=== PATIENT | female | born 1945 | race Caucasian/White ===

== ENCOUNTER 2016-06-15 10:34 | Inpatient (IN) | payer MEDICARE ==
[2016-06-15] MEDS ORDERED: FAMOTIDINE 10 MG/ML VIAL IV ONE ×2 (10:40→10:48)
[2016-06-15] MEDS ORDERED: HYDROmorphone HCL 1 MG/ML DISP.SYRIN IV ONE (10:40)
[2016-06-15] MEDS ORDERED: ONDANSETRON HCL/PF 2 MG/ML VIAL IV ONE (10:40)
[2016-06-15] MEDS ORDERED: ONDANSETRON HCL/PF 2 MG/ML VIAL ONE (10:48)
[2016-06-15] MEDS ORDERED: HYDROmorphone HCL 1 MG/ML DISP.SYRIN ONE (10:48)
[2016-06-15] MEDS: NORMAL SALINE 1,000 ML IV PRN ×3 (10:50→23:27)
[2016-06-15] MEDS ORDERED: NORMAL SALINE 500 ML IV PRN (10:55)
--- NOTE | 2016-06-15 10:55 | ERNOTE ---
Medical Problem HPI - Narrative Date of Service: 06/15/16 - General Chief Complaint: Fall Time Seen by Provider: 06/15/16 10:38 Source: patient, family, EMS notes reviewed Exam Limitations: no limitations - Immun/Allergies/Home Medications Immunizations: IMMUNIZATION HX Immunizations Up to Date Yes History of Influenza Vaccine Yes Hx Pneumococcal Vaccination More Information Required Allergies/Adverse Reactions: Allergies cat dander Allergy (Verified 06/15/16 11:00) fluticasone propionate [From Advair Diskus] Allergy (Verified 06/15/16 11:00) levofloxacin [From Levaquin] Allergy (Verified 06/15/16 11:00) meperidine HCl [From Demerol] Allergy (Verified 06/15/16 11:00) metoclopramide HCl [From Reglan] Allergy (Verified 06/15/16 11:00) NSAIDS (Non-Steroidal Anti-Inflamma Allergy (Verified 06/15/16 11:00) procaine HCl [From Novocain] Allergy (Verified 06/15/16 11:00) salmeterol xinafoate [From Advair Diskus] Allergy (Verified 06/15/16 11:00) tramadol Allergy (Verified 06/15/16 11:00) Home Medications: HOME MEDICATIONS Acetaminophen [Tylenol] 500 mg PO Q4H PRN 03/19/16 [Last Taken Unknown] Albuterol Sulfate [Ventolin HFA] 2 puff IH Q4H PRN 03/19/16 [Last Taken Unknown] Albuterol Sulfate/Ipratropium [Duoneb 2.5-0.5MG/3ML Soln] 3 ml IH QID 03/19/16 [ Last Taken Unknown] Ammonium Lactate [Amlactin] 1 appl TP BID 03/19/16 [Last Taken Unknown] Aspirin [Aspirin EC] 81 mg PO DAILY 03/19/16 [Last Taken Unknown] Atorvastatin Calcium 40 mg PO DAILY 03/19/16 [Last Taken Unknown] Carbinoxamine Maleate [Arbinoxa] 4 mg PO TID 03/19/16 [Last Taken Unknown] Cholestyramine (with Sugar) [Questran Packet] 4 gm PO QID 03/19/16 [Last Taken Unknown] Clopidogrel Bisulfate [Plavix] 75 mg PO DAILY 03/19/16 [Last Taken Unknown] Famotidine 40 mg PO BID 03/19/16 [Last Taken Unknown] Furosemide [Lasix] 40 mg PO BID 03/19/16 [Last Taken Unknown] Hydrophilic Ointment [Aquaphilic Ointment] 1 appl TP BID 03/19/16 [Last Taken Unknown] Insul NPH Hu Rec/Ins Rg Hu Rec [Novolin 70/30 100U/ml] 55 units SQ TID 03/19/16 [Last Taken Unknown] Insulin Regular, Human [Novolin R] 25 unit SQ DAILY 03/19/16 [Last Taken Unknown ] Insulin Regular, Human [Novolin R] 55 unit SQ QAM 03/19/16 [Last Taken Unknown] Iron Aspgly&Ps/C/B12/FA/Ca/Suc [Ferrex 150 Forte Plus Capsule] 1 each PO TID [Last Taken Unknown] Levothyroxine Sodium [Synthroid] 25 mcg PO DAILY 03/19/16 [Last Taken Unknown] Losartan Potassium [Cozaar] 100 mg PO DAILY 03/19/16 [Last Taken Unknown] Metoclopramide HCl [Reglan] 5 mg PO ACHS 03/19/16 [Last Taken Unknown] Metoprolol Tartrate 100 mg PO BID 03/19/16 [Last Taken Unknown] Multivitamin [One Daily Essential] 1 each PO DAILY 03/19/16 [Last Taken Unknown] Potassium Chloride 20 meq PO QID 03/19/16 [Last Taken Unknown] Prazosin HCl [Minipress] 5 mg PO DAILY 03/19/16 [Last Taken Unknown] Sucralfate [Carafate] 1 gm PO QID 03/19/16 [Last Taken Unknown] Trolamine Salicylate [Aspercreme] 1 appl TP QID PRN 03/19/16 [Last Taken Unknown ] Cephalexin [Keflex] 500 mg PO QID #40 capsule 03/20/16 [Last Taken Unknown] Acarbose [Precose] 25 mg PO TID 06/15/16 [Last Taken Unknown] Fluconazole [Diflucan] 400 mg PO DAILY 06/15/16 [Last Taken Unknown] Iron Aspgly&Ps Cmplx/C/Sucac [Ferrex 150 Plus Capsule] 1 each PO DAILY 06/15/16 [Last Taken Unknown] Januvia 06/15/16 [Last Taken Unknown] Topiramate [Topamax] 25 mg PO BID 06/15/16 [Last Taken Unknown] - Pain Score Pain Score #1 Pain Score: 7 - History of Present History Narrative: Patient comes after feeling weak and having some urinary problems. Patient has been with dysuria and has Hx of UTI. Patient was found with low blood pressure by EMS and a low sugar was reported. Patient on her way out of the home felt and landed on her L hip area. Patient with pain on the L hip area and is not able to walk. Patient reported pain on movement. Timing: constant Modifying Factors - (Improves): Present: immobilization Modifying Factors - (Worsens): Present: movement Review of Systems - Review of Systems Constitutional: Present: chills, weakness, malaise, decreased activity level EYE: Present: no symptoms reported ENT: Present: no symptoms reported Respiratory: Present: cough. Absent: shortness of breath, wheezing Cardiology: Absent: no symptoms reported, chest pain, palpitations, syncope, edema Gastrointestinal/Abdominal: Present: abdominal pain - Generalized. Patient stated that her dogs has been sleeping on top of her abdomen. Genitourinary: Present: frequency, dysuria. Absent: hematuria, discharge Skin: Absent: rash Neurological: Present: weakness - Generalized Endocrine: Present: increased urine Hematologic/Lymphatic: Absent: easy bruising, easy bleeding Psych: Absent: anxiety, depressed All Other Systems: All systems neg except as marked - Patient's Past Medical History Patient History - Medical: Anemia, Anesthesia Reaction, Anxiety, Arthritis, Cataracts, Diabetes Type 2 Insulin Dependent, Fibromyalgia, GERD, Headache, Hypothyroidism, Obesity, Renal Disease, UTI'S Patient History - Cardiac/Respiratory: Asthma, CHF, COPD, Hyperlipidemia Patient History - Cancer: No Hx of Cancer Patient History - Surgical Procedures: Appendectomy, Cholecystectomy, Coronary Bypass Surgery, Hysterectomy - Family History Mother Family History - Medical: , Diabetes Type 2 Insulin Dependent Family History - Cardiac/Respiratory: Arrhythmias Father Family History - Medical: , Diabetes Type 2 Insulin Dependent Family History - Cardiac/Respiratory: No pertinent hx Grandmother-Paternal Family History - Medical: Grandfather-Paternal Family History - Medical: , No pertinent hx Family History - Cardiac/Respiratory: No pertinent hx Grandfather-Maternal Family History - Medical: , No pertinent hx Family History - Cardiac/Respiratory: CHF, Myocardial Infarction Grandmother-Maternal Family History - Medical: , No pertinent hx Family History - Cardiac/Respiratory: Myocardial Infarction Brother Family History - Medical: , No pertinent hx Family History - Cardiac/Respiratory: No pertinent hx Sister Family History - Medical: Family History - Cardiac/Respiratory: No pertinent hx - Social History Living Situations: alone Smoking Status: Former smoker Alcohol Use: rarely Drug Use: none Physical Exam - Physical Exam General Appearance: Present: alert, no apparent distress, obese Eye Exam: Normal inspection: bilateral, PERRL: bilateral, EOMI: bilateral Ears, Nose, Throat: Present: normal ENT inspection, hearing grossly normal, normal pharynx, dry mucous membranes Neck: Present: normal inspection, nontender. Absent: carotid bruit Respiratory: Present: no respiratory distress, normal breath sounds, no accessory muscle use, chest nontender, lungs clear, expiration (prolonged) - mild. Absent: rales Cardiovascular/Chest: Present: regular rate, rhythm, no murmur, normal peripheral pulses Gastrointestinal/Abdominal: Present: normal bowel sounds, nontender, nondistended, soft, no organomegaly Back Exam: Present: normal inspection, no vertebral tenderness, decreased range of motion - due to lower back pain, muscle spasm - patient with spasm on the lower back area. Absent: CVA tenderness (R), CVA tenderness (L) Extremity Exam: Present: decreased range of motion - Patient has decrease ROM on the L hip area., pelvis stable, other - Patient has shortening of the L leg and external rotation of the L hip on examination. There is good pulse and sensaiton. Patient has knee replacements. No other gross deformity on the lower extremities noticed. Absent: extremity edema Neurological Exam: Present: alert, oriented, normal mood/affect, no motor/ sensory deficits, other - GCS: 15/15 Skin Exam: Present: normal color, warm/dry Lymphatic Exam: Present: no adenopathy ED Progress - Date and Time Seen: Date and Time: 06/15/16 10:54 Patient with a suspected L hip Fx. Patient is in pain. Tx has been ordered. 06/15/16 11:28 Patient found with elevated LA. Due to Hx of CHF and Lung disease hydration will be controlled. Patient will be started on antibiotics. 06/15/16 11:34 Antibiotic selection has been limited due to patient's allergies. 06/15/16 12:46 I had called the office of Dr. Metz and I was informed that the provider wasn't in office today. I was informed that Dr. Siu will be coving Primary Care Provider at this time. 06/15/16 12:50 I had presented case to Dr. Siu and patient is to be placed in hospital as inpatient. - Results and Orders Patient's Lab Results:: I have reviewed the patient's lab results. Results and Orders: CBC: Leukocytosis CMP: Patient with renal injury by showing elevated Creatinine levels LA: + for sepsis - Vital Signs Patient's Vital Signs:: I have reviewed the patient's vital signs. Vital Signs: Vital Signs 06/15/16 10:37 Temperature 38.6 C H Pulse Rate 92 Respiratory 16 Rate Blood Pressure 87/34 O2 Sat by Pulse 93 Oximetry - EKG EKG: NSR EKG read: Interp. by me EKG Comments: HR: 72, No ST Elevation, I-RBBB, QT/QTc are normal. No changes since 2014 - X-Ray X-Ray #1 X-Ray: chest X-ray Comments: Radiology Reported Bibasilar opacifications X-Ray #2 X-Ray: lumbosacral X-ray Comments: No Fx reported by Radiologist Report was read and no Fx reported, DJD X-Ray #3 X-Ray: pelvis X-ray Comments: No acute Fx reported by radiologist - CT/Ultrasound CT/Ultrasound Narrative: CT C-Spine: No Fx seen pending Radiologist Report - Progress/Reassessment Chief Complaint: Fall Departure - Departure Clinical Impression: Sepsis Qualifiers: Sepsis type: sepsis due to unspecified organism Qualified Code(s): A41.9 - Sepsis, unspecified organism UTI (urinary tract infection) Qualifiers: Urinary tract infection type: acute cystitis Hematuria presence: without hematuria Qualified Code(s): N30.00 - Acute cystitis without hematuria Pneumonia Qualifiers: Pneumonia type: due to unspecified organism Laterality: bilateral Lung location : unspecified part of lung Qualified Code(s): J18.9 - Pneumonia, unspecified organism Fall Qualifiers: Encounter type: initial encounter Qualified Code(s): W19.XXXA - Unspecified fall, initial encounter Disposition: [facility] Condition: Fair
[2016-06-15 11:01] LABS: Hematocrit 35.9 % (37.0-47.0); Hemoglobin 11.4 gm/dL (12.5-16.0); Mean Cell Volume 89.8 fl (78-100); Mean Corpuscular Hemoglobin 28.5 pg (27-31); Mean Corpuscular Hgb Conc 31.8 g/dl (32-36); Mean Platelet Volume 11.4 fl (6.0-9.5); Platelet Count 152 K/mm3 (150-450); Red Cell Distribution Width 17.2 % (11.5-14.0); White Blood Count 13.6 K/mm3 (4.0-10.5)
[2016-06-15 11:03] LABS: Total Cells Counted 100
[2016-06-15 11:13] LABS: INR 1.16 INR (0.90-1.10); Partial Thrombolplastin Time 27.5 Seconds (24-32); Prothrombin Time (Patient) 12.1 Seconds (9.4-11.4)
[2016-06-15 11:19] LABS: Atypical (Reactive) Lymph 2 % (0-2); Band 2 % (0-2.0); Lymphocyte 7 % (20-51); Monocyte 15 % (0-9); Neutrophil 74 % (42-75); Neutrophil # 10.1 K/mm3 (1.3-6.0); Platelet Estimate Normal (NORMAL); RBC Morphology Normal (NORMAL)
[2016-06-15 11:26] LABS: Albumin * 2.7 gm/dl (3.4-5.0); Anion Gap 10.4 mmol/L (6.8-13.8); BUN/Creatinine Ratio 17.3 (9.0-21.6); Bilirubin, Total 0.5 mg/dL (0.0-1.1); Ca. Corrected For Albumin 10.2 mg/dL (8.4-10.2); Calcium * 9.5 mg/dL (7.9-10.9); Carbon Dioxide 31.1 mmol/L (24-32.6); Potassium 3.5 mmol/L (3.4-4.6); Total Protein 6.8 gm/dL (6.2-8.2); Troponin I 0.046 ng/ml (0.00-0.10)
[2016-06-15] MEDS ORDERED: NORMAL SALINE 3,000 ML IV ONE (11:32)
[2016-06-15 11:45] LABS: Urine Bilirubin Negative (NEGATIVE); Urine Blood 250 /ul (NEGATIVE); Urine Ketone Negative (NEGATIVE); Urine Nitrite Negative (NEGATIVE); Urine Protein 30 mg/dL (NEGATIVE); Urine Urobilinogen Normal (NORMAL)
[2016-06-15 12:02] LABS: Urine Appearance Slightly Cloudy; Urine Bacteria 3+; Urine Color Yellow; Urine RBC 25-50 /hpf (0-5); Urine Renal Epithelial Cell Few - 1+ /hpf; Urine WBC 25-50 /hpf (0-5)
[2016-06-15] MEDS ORDERED: ALBUTEROL SULFATE/IPRATROPIUM 3 ML NEBU IH PRN (12:59)
[2016-06-15 13:52] LABS: Urine Bilirubin Negative (NEGATIVE); Urine Blood 250 /ul (NEGATIVE); Urine Ketone Negative (NEGATIVE); Urine Nitrite Negative (NEGATIVE); Urine Protein 100 mg/dL (NEGATIVE); Urine Urobilinogen Normal (NORMAL)
[2016-06-15] MEDS ORDERED: AZITHROMYCIN 500 MG in DEXTROSE 5 % IN WATER 250 ML IV SCH ×2 (14:00)
[2016-06-15 14:07] LABS: Urine Appearance Cloudy; Urine Bacteria 2+; Urine Color Yellow
[2016-06-15] MEDS ORDERED: ACETAMINOPHEN 500 MG TABLET PO PRN ×2 (15:51→22:16)
--- NOTE | 2016-06-15 16:07 | HP ---
Chief Complaint - Chief Complaint Date of Service: 06/15/16 Time of Service: 15:54 Chief Complaint: Left hip pain,Fever and wheezing History of Present Illness: 70 years old female adm to the hospital from the ER with daughter at the bedside. PMH significant for CHF, hypertension, recurrent UTI ( colovaginal fistual), sleep apnea ( refused to use cpap), COPD and diabetes. Per daughter ( POA) while at home this morning, pt was observed to be confused, wheezing and had a fever. Her blood glucose was elevated and insulin coverage given along with nebulizer and Tylenol. Her s/s improved a few hours later. Daughter had decided to bring pt to the hospital upon walking to the car pt fell on her buttocks with legs in a frog like position. pt been complaining of left hip pain since. EMS was called BG repeated, pt hypoglycemic. She was given dextrose and brought to the ER. she is able to move the left hip and leg slightly with severe discomfort and unable to bear weight. 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 pt stated she want to be DNR because she had been intubated several times, due to anesthesia reaction and don't want to go through that process again. Per daughter pt isn't a candidate for anesthesia. - Patient's Past Medical History Patient History - Medical: Anemia - Iron deficiency, Anesthesia Reaction, Anxiety, Arthritis, Cataracts, Diabetes Type 2, Diabetes Type 2 Insulin Dependent, Fibromyalgia, GERD, Hypothyroidism, Migraines, Obesity, Osteoarthritis - DJD lumbar spine, fistula colovaginal, Osteoporosis, Renal Disease, UTI'S - Recurrent due to anal fistula, Other - cellulitis, hypothyroidism, parkinsonism primary, spinal stenosis, TMJ, urinary retention, Patient History - Cardiac/Respiratory: Asthma, CHF, COPD, Hyperlipidemia, Home O2 Use - 2L nasal cannula, CPAP/BiPAP Home Use - pt have not been using Patient History - Cancer: No Hx of Cancer Patient History - Surgical Procedures: Appendectomy, Cholecystectomy, Coronary Bypass Surgery - 2000 Tripple stents x3, D & C, EGD - with biopsy, Hysterectomy , Total Knee Replacement - right knee, Other - BL carpal tunnel release Patient History - Other: None - Family History Mother Family History - Medical: , Diabetes Type 2 Insulin Dependent Family History - Cardiac/Respiratory: Arrhythmias Father Family History - Medical: , Diabetes Type 2 Insulin Dependent Family History - Cardiac/Respiratory: No pertinent hx Grandmother-Paternal Family History - Medical: Grandfather-Paternal Family History - Medical: , No pertinent hx Family History - Cardiac/Respiratory: No pertinent hx Grandfather-Maternal Family History - Medical: , No pertinent hx Family History - Cardiac/Respiratory: CHF, Myocardial Infarction Grandmother-Maternal Family History - Medical: , No pertinent hx Family History - Cardiac/Respiratory: Myocardial Infarction Brother Family History - Medical: , No pertinent hx Family History - Cardiac/Respiratory: No pertinent hx Sister Family History - Medical: Family History - Cardiac/Respiratory: No pertinent hx - Social History Living Situations: home Smoking Status: Former smoker - quit 2000 Have you smoked in the past 12 months: No Smoking Stop Date: 05/27/00 Alcohol Use: none Drug Use: none Review Of Systems (GEN) - Review of Systems Generalized/Overall Review: Present: Chills, Fever, Malaise EENTM: Present: No Symptoms Reported Respiratory: Present: Shortness of Breath, Wheezing Cardiac: Present: No Symptoms Reported Abdominal: Present: No Symptoms Reported Genitourinary: Present: Frequency, Retention Musculoskeletal: Present: Joint Pain - Left hip pain, Muscle Pain - left hip Neurological: Present: Tremors Skin: Present: Dryness Endocrine: Present: No Symptoms Reported Allergies/Adverse Reactions: Allergies Allergy/AdvReac Type Severity Reaction Status Date / Time cat dander Allergy Verified 06/15/16 11:00 fluticasone propionate Allergy Verified 06/15/16 11:00 [From Advair Diskus] levofloxacin [From Levaquin] Allergy Verified 06/15/16 11:00 meperidine HCl [From Demerol] Allergy Verified 06/15/16 11:00 metoclopramide HCl Allergy Verified 06/15/16 11:00 [From Reglan] NSAIDS (Non-Steroidal Allergy Verified 06/15/16 11:00 Anti-Inflamma procaine HCl [From Novocain] Allergy Verified 06/15/16 11:00 salmeterol xinafoate Allergy Verified 06/15/16 11:00 [From Advair Diskus] tramadol Allergy Verified 06/15/16 11:00 Home Medications: HOME MEDICATIONS Acetaminophen [Tylenol] 500 mg PO Q4H PRN 03/19/16 [Last Taken Unknown] Albuterol Sulfate [Ventolin HFA] 2 puff IH Q4H PRN 03/19/16 [Last Taken Unknown] Albuterol Sulfate/Ipratropium [Duoneb 2.5-0.5MG/3ML Soln] 3 ml IH QID 03/19/16 [ Last Taken Unknown] Ammonium Lactate [Amlactin] 1 appl TP BID 03/19/16 [Last Taken Unknown] Aspirin [Aspirin EC] 81 mg PO DAILY 03/19/16 [Last Taken Unknown] Atorvastatin Calcium 40 mg PO DAILY 03/19/16 [Last Taken Unknown] Carbinoxamine Maleate [Arbinoxa] 4 mg PO TID 03/19/16 [Last Taken Unknown] Clopidogrel Bisulfate [Plavix] 75 mg PO DAILY 03/19/16 [Last Taken Unknown] Famotidine 20 mg PO BID 03/19/16 [Last Taken Unknown] Furosemide [Lasix] 20 mg PO BID 03/19/16 [Last Taken Unknown] Hydrophilic Ointment [Aquaphilic Ointment] 1 appl TP BID 03/19/16 [Last Taken Unknown] Insul NPH Hu Rec/Ins Rg Hu Rec [Novolin 70/30 100U/ml] 55 units SQ TID 03/19/16 [Last Taken Unknown] Insulin Regular, Human [Novolin R] 25 unit SQ DAILY 03/19/16 [Last Taken Unknown ] Insulin Regular, Human [Novolin R] 60 unit SQ QAM 03/19/16 [Last Taken Unknown] Iron Aspgly&Ps/C/B12/FA/Ca/Suc [Ferrex 150 Forte Plus Capsule] 1 each PO TID [Last Taken Unknown] Levothyroxine Sodium [Synthroid] 25 mcg PO DAILY 03/19/16 [Last Taken Unknown] Losartan Potassium [Cozaar] 100 mg PO DAILY 03/19/16 [Last Taken Unknown] Metoclopramide HCl [Reglan] 5 mg PO ACHS 03/19/16 [Last Taken Unknown] Metoprolol Tartrate 100 mg PO BID 03/19/16 [Last Taken Unknown] Multivitamin [One Daily Essential] 1 each PO DAILY 03/19/16 [Last Taken Unknown] Potassium Chloride 20 meq PO QID 03/19/16 [Last Taken Unknown] Prazosin HCl [Minipress] 5 mg PO DAILY 03/19/16 [Last Taken Unknown] Sucralfate [Carafate] 1 gm PO QID 03/19/16 [Last Taken Unknown] Trolamine Salicylate [Aspercreme] 1 appl TP QID PRN 03/19/16 [Last Taken Unknown ] Acarbose [Precose] 25 mg PO TID 06/15/16 [Last Taken Unknown] Cephalexin [Keflex] 1,000 mg PO QID 06/15/16 [Last Taken Unknown] Fluconazole [Diflucan] 200 mg PO DAILY 06/15/16 [Last Taken Unknown] Hydrocortison-Acetic Acid Soln 1 drop EACH EAR QID PRN 06/15/16 [Last Taken Unknown] Iron Aspgly&Ps Cmplx/C/Sucac [Ferrex 150 Plus Capsule] 1 each PO TID 06/15/16 [ Last Taken Unknown] Januvia 50 mg PO DAILY 06/15/16 [Last Taken Unknown] Pioglitazone HCl [Actos] 15 mg PO DAILY 06/15/16 [Last Taken Unknown] Topiramate [Topamax] 25 mg PO BID 06/15/16 [Last Taken Unknown] Exam - Exam Vital Signs: Vital Signs - Last Taken Temp 36.9 C 06/15/16 13:02 Pulse 74 06/15/16 13:02 Resp 20 06/15/16 13:02 BP 107/50 06/15/16 13:02 Pulse Ox 90 06/15/16 13:02 Constitutional: Present: Alert, Oriented x3, Cooperative, Well developed, No distress, Middle aged, Morbidly obese ENT Exam: Present: moist mucous membranes Eye Exam: bilateral eye: PERRL Neck: Present: full range of motion Back Exam: Present: normal inspection, no CVA tenderness, no vertebral tenderness Breasts: Present: Exam deferred Respiratory: Present: chest non-tender, no respiratory distress, no accessory muscle use, decreased breath sounds, wheezing, expiration (prolonged) Cardiovascular/Chest: Present: normal peripheral pulses, regular rate, rhythm, no chest tenderness, no edema Peripheral Pulses: dorsalis-pedis (R): 2+, dorsalis-pedis (L): 2+ Abdomen: Present: Normal bowel sounds, soft, nontender, nondistended, no rebound tenderness /Rectal: Present: Other - [place] cath Extremity: Present: normal inspection, no calf tenderness, normal capillary refill, other - left hip pain limited range of motion Skin Exam: Present: normal color, warm/dry, no cyanosis Lymphatic: Present: no adenopathy Neurologic: Present: oriented x 3 Appearance: Present: appropriate appearance Eye contact: Present: cooperative, good eye contact Thoughts: Present: normal thought pattern Diagnostic Studies: Abnormal Lab Results 06/15/16 Range/Units Unknown Urine Protein 100 H (NEGATIVE) mg/dL Urine Blood 250 H (NEGATIVE) /ul Prot Sulfosalicylic Acd 3+ H (0) mg/dL Ur Leukocyte Esterase 100 H (NEGATIVE) /ul Urine RBC 5-10 H (0-5) /hpf Urine WBC 10-25 H (0-5) /hpf Urine Bacteria 2+ H (NONE) Laboratory Results WBC 13.6 K/mm3 (4.0-10.5) H 06/15/16 10:53 RBC 4.00 M/mm3 (4.2-5.4) L 06/15/16 10:53 Hgb 11.4 gm/dL (12.5-16.0) L 06/15/16 10:53 Hct 35.9 % (37.0-47.0) L 06/15/16 10:53 MCV 89.8 fl (78-100) 06/15/16 10:53 MCH 28.5 pg (27-31) 06/15/16 10:53 MCHC 31.8 g/dl (32-36) L 06/15/16 10:53 RDW 17.2 % (11.5-14.0) H 06/15/16 10:53 Plt Count 152 K/mm3 (150-450) 06/15/16 10:53 MPV 11.4 fl (6.0-9.5) H 06/15/16 10:53 Neutrophils % (Manual) 74 % (42-75) 06/15/16 10:53 Band Neuts % (Manual) 2 % (0-2.0) 06/15/16 10:53 Lymphocytes % (Manual) 7 % (20-51) L 06/15/16 10:53 Monocytes % (Manual) 15 % (0-9) H 06/15/16 10:53 Neutrophils # (Manual) 10.1 K/mm3 (1.3-6.0) H 06/15/16 10:53 Lymphocytes # (Manual) 1.0 k/mm3 (1.5-3.5) L 06/15/16 10:53 Monocytes # (Manual) 2.0 k/mm3 (0.0-1.0) H 06/15/16 10:53 Atypic/Reactive Lymphs 2 % (0-2) 06/15/16 10:53 Platelet Estimate Normal (NORMAL) 06/15/16 10:53 RBC Morphology Normal (NORMAL) 06/15/16 10:53 PT 12.1 Seconds (9.4-11.4) H 06/15/16 10:53 INR (Anticoag Therapy) 1.16 INR (0.90-1.10) H 06/15/16 10:53 PTT ([place]) 27.5 Seconds (24-32) 06/15/16 10:53 Sodium 136 mmol/L (132-142) 06/15/16 10:53 Plasma Sodium 136 mmol/L (130-142) 06/15/16 10:53 Potassium 3.5 mmol/L (3.4-4.6) D 06/15/16 10:53 Chloride 98 mmol/L (97-106) 06/15/16 10:53 Carbon Dioxide 31.1 mmol/L (24-32.6) 06/15/16 10:53 Anion Gap 10.4 mmol/L (6.8-13.8) 06/15/16 10:53 BUN 35 mg/dL (3-23) H 06/15/16 10:53 Creatinine 2.02 mg/dL (0.4-1.4) H D 06/15/16 10:53 Est GFR (Non-Af Amer) 26 mL/min (60-130) L D 06/15/16 10:53 BUN/Creatinine Ratio 17.3 (9.0-21.6) 06/15/16 10:53 Random Glucose 119 mg/dL (70-110) H 06/15/16 10:53 Lactic Acid, Venous 0.9 mmol/L (0.4-2.0) 06/15/16 13:45 Calcium 9.5 mg/dL (7.9-10.9) 06/15/16 10:53 Calcium Adj for Albumin 10.2 mg/dL (8.4-10.2) 06/15/16 10:53 Total Bilirubin 0.5 mg/dL (0.0-1.1) 06/15/16 10:53 AST 19 U/L (0-48) 06/15/16 10:53 ALT 15 U/L (19-67) L 06/15/16 10:53 Alkaline Phosphatase 66 U/L (50-170) 06/15/16 10:53 Troponin I 0.046 ng/ml (0.00-0.10) 06/15/16 10:53 B-Natriuretic Peptide 3596 pg/mL (5-325) H 06/15/16 10:53 Total Protein 6.8 gm/dL (6.2-8.2) 06/15/16 10:53 Albumin 2.7 gm/dl (3.4-5.0) L 06/15/16 10:53 Procalcitonin 14.25 ng/mL (0.05-0.50) H 06/15/16 10:53 Urine Color Yellow 06/15/16 Unknown Urine Appearance Cloudy 06/15/16 Unknown Urine pH 5.0 pH (5.0-7.0) 06/15/16 Unknown Ur Specific [place] 1.020 SP.GR. (1.005-1.010) 06/15/16 Unknown Urine Protein 100 mg/dL (NEGATIVE) H 06/15/16 Unknown Urine Glucose (UA) Negative mg/dL (NEGATIVE) 06/15/16 Unknown Urine Ketones Negative mg/dL (NEGATIVE) 06/15/16 Unknown Urine Blood 250 /ul (NEGATIVE) H 06/15/16 Unknown Urine Nitrate Negative (NEGATIVE) 06/15/16 Unknown Urine Bilirubin Negative mg/dl (NEGATIVE) 06/15/16 Unknown Prot Sulfosalicylic Acd 3+ mg/dL (0) H 06/15/16 Unknown Urine Urobilinogen Normal EU/dl (NORMAL) 06/15/16 Unknown Ur Leukocyte Esterase 100 /ul (NEGATIVE) H 06/15/16 Unknown Urine RBC 5-10 /hpf (0-5) H 06/15/16 Unknown Urine WBC 10-25 /hpf (0-5) H 06/15/16 Unknown Ur Epithelial Cells Trace /hpf (0-5) 06/15/16 Unknown Ur Renal Epithelial Cell Few - 1+ /hpf (NONE) H 06/15/16 11:10 Urine Bacteria 2+ (NONE) H 06/15/16 Unknown Urine Culture Comments Culture to follow 06/15/16 Unknown Assessment/Plan - Narrative Narrative: Sepsis -likely due to recurrent UTI from colovaginal fistula On adm BP 87/34, Temp 38.6, Lactic acid 2.5--->0.9, WBC 13.6, bands 2 Procalcitonin level 14.25 Blood cultures and urine cultures pending Azithromycin and Ceftriaxone was given in ER Merrem initiated Continue with IVF hydration, monitor carefully pt with CHF. UTI Specimen repeated from [place] cath inserted today. Noted on urinalysis Keep [place] cath for now same plan as #1 Left hip pain s/p mechanical fall while at home MRI left hip pending PT/OT evaluation and treatment Oral pain medications and warm pack to affected area Will consider ortho consult if MRI with abnormal findings Hypotensive-secondary to dehydration On adm BP 87/34---->102/47---->126/33----> 126/33 On adm BUN/ Cre--> 35/2.02 Continue to monitor vital signs IVF gently hydration Dehydration Plan same as #4 COPD Continue with nebulizer treatments supplemented oxygen Diabetes uncontrolled Per daughter was elevated while at home before meals, insulin coverage was given Accu-check AC+HS and low dose sliding scale May resume home dose of insulin Consistent carb diet CHF- No exacerbation Daily weight strict I/O Code Status DNR VTE ppx: SCD and ambulate with therapy Time >30 minutes - Assessment/Plan (1) Sepsis Problem: Acute Qualifiers: Sepsis type: sepsis due to unspecified organism Qualified Code(s): A41.9 - Sepsis, unspecified organism (2) UTI (urinary tract infection) Problem: Acute Qualifiers: Urinary tract infection type: acute cystitis Hematuria presence: without hematuria Qualified Code(s): N30.00 - Acute cystitis without hematuria (3) Acute exacerbation of COPD with asthma Problem: Acute (4) CHF (congestive heart failure) Problem: Chronic Qualifiers: Congestive heart failure type: unspecified congestive heart failure type Congestive heart failure chronicity: chronic Qualified Code(s): I50.9 - Heart failure, unspecified (5) Diabetes mellitus type 2 in obese Problem: Chronic
[2016-06-15] MEDS ORDERED: TROLAMINE SALICYLATE 90 APPL TUBE TP PRN (17:02)
[2016-06-15] MEDS: INSULIN LISPRO 100 UNITS/ML VIAL SC SCH (17:57)
[2016-06-15] MEDS: MEROPENEM 1 GM in NORMAL SALINE 100 ML IV SCH (17:57)
[2016-06-15] MEDS ORDERED: ALBUTEROL SULFATE/IPRATROPIUM 3 ML NEBU IH SCH ×2 (19:00→21:00)
[2016-06-15] MEDS: ALBUTEROL SULFATE/IPRATROPIUM 3 ML NEBU IH SCH (20:29)
[2016-06-15] MEDS ORDERED: FUROSEMIDE 40 MG TABLET PO SCH (21:00)
[2016-06-15] MEDS ORDERED: INSULIN GLARGINE,HUM.REC.ANLOG 100 UNITS/ML VIAL SC SCH (21:00)
[2016-06-15] MEDS: HYDROPHILIC OINTMENT 454 APPL JAR TP SCH (22:09)
[2016-06-15] MEDS ORDERED: ACETAMINOPHEN 325 MG TABLET ONE (22:17)
[2016-06-16 05:27] LABS: Hematocrit 34.5 % (37.0-47.0); Hemoglobin 10.4 gm/dL (12.5-16.0); Mean Cell Volume 94.5 fl (78-100); Mean Corpuscular Hemoglobin 28.5 pg (27-31); Mean Corpuscular Hgb Conc 30.1 g/dl (32-36); Mean Platelet Volume 12.2 fl (6.0-9.5); Platelet Count 144 K/mm3 (150-450); Red Blood Count 3.65 M/mm3 (4.2-5.4); Red Cell Distribution Width 17.7 % (11.5-14.0); White Blood Count 12.2 K/mm3 (4.0-10.5)
[2016-06-16 05:36] LABS: Total Cells Counted 100
[2016-06-16 05:53] LABS: Anion Gap 14.7 mmol/L (6.8-13.8); BUN/Creatinine Ratio 21.3 (9.0-21.6); Calcium * 8.9 mg/dL (7.9-10.9); Carbon Dioxide 26.6 mmol/L (24-32.6); Estimated Creat Clear 23.6; Potassium 4.3 mmol/L (3.4-4.6)
[2016-06-16 06:06] LABS: Band 3 % (0-2.0); Lymphocyte 2 % (20-51); Monocyte 6 % (0-9); Neutrophil 89 % (42-75); Neutrophil # 10.9 K/mm3 (1.3-6.0)
[2016-06-16 06:10] LABS: Toxic Granulation 3+
[2016-06-16 06:12] LABS: Anisocytosis 1+; Platelet Estimate Decreased (NORMAL)
[2016-06-16] MEDS: ALBUTEROL SULFATE/IPRATROPIUM 3 ML NEBU IH SCH ×4 (06:17→20:07)
[2016-06-16] MEDS ORDERED: ACETAMINOPHEN 325 MG TABLET PO PRN (06:22)
[2016-06-16] MEDS: INSULIN LISPRO 100 UNITS/ML VIAL SC SCH ×3 (07:12→16:51)
[2016-06-16] MEDS ORDERED: [UNRECOGNIZED DRUG - OTHER] EACH EAR PRN (08:18)
[2016-06-16] MEDS ORDERED: ALBUTEROL SULFATE 200 PUFF INHALER IH PRN (08:18)
[2016-06-16] MEDS ORDERED: NON-FORMULARY 1 DOSE DOSE (Multivitamin [One Daily Essential] 1 EACH) PO SCH (09:00)
[2016-06-16] MEDS ORDERED: NON-FORMULARY 1 DOSE DOSE (Losartan Potassium [Cozaar] 100 MG) PO SCH (09:00)
[2016-06-16] MEDS ORDERED: JANUVIA 50 MG PO SCH (09:00)
[2016-06-16] MEDS ORDERED: ATORVASTATIN CALCIUM 40 MG TABLET PO SCH (09:00)
[2016-06-16] MEDS ORDERED: [UNRECOGNIZED DRUG - MIXTURE] PO SCH (09:00)
[2016-06-16] MEDS ORDERED: POTASSIUM CHLORIDE 10 MEQ TABLET.SA PO SCH (09:00)
[2016-06-16] MEDS ORDERED: NON-FORMULARY 1 DOSE DOSE (Topiramate [Topamax] 25 MG) PO SCH (09:00)
[2016-06-16] MEDS: HYDROPHILIC OINTMENT 454 APPL JAR TP SCH ×2 (09:34→21:06)
[2016-06-16] MEDS: ACARBOSE 25 MG PO SCH ×3 (10:09→16:49)
[2016-06-16] MEDS: PIOGLITAZONE HCL 15 MG TABLET PO SCH (10:10)
[2016-06-16] MEDS: ASPIRIN 81 MG TABLET.DR PO SCH (10:10)
[2016-06-16] MEDS: SUCRALFATE 1 G TABLET PO SCH ×4 (10:10→21:11)
[2016-06-16] MEDS: LOSARTAN POTASSIUM 50 MG TABLET PO SCH (10:11)
[2016-06-16] MEDS: CARBINOXAMINE PO SCH ×3 (10:11→16:49)
[2016-06-16] MEDS: AMIODARONE HCL 200 MG TABLET PO SCH ×2 (10:11→21:12)
[2016-06-16] MEDS: ROSUVASTATIN CALCIUM 10 MG TABLET PO SCH (10:12)
[2016-06-16] MEDS: FLUCONAZOLE 200 MG TABLET PO SCH (10:12)
[2016-06-16] MEDS: AMMONIUM LACTATE 225 APPL BTL TP SCH ×2 (10:14→21:05)
[2016-06-16] MEDS: sitaGLIPtin PHOSPHATE 50 MG TABLET PO SCH (10:14)
[2016-06-16] MEDS: PRAZOSIN HCL 5 MG CAPSULE PO SCH (10:14)
[2016-06-16] MEDS: POTASSIUM CHLORIDE 20 MEQ TABLET.SA PO SCH ×4 (10:14→21:11)
[2016-06-16] MEDS: METOPROLOL TARTRATE 100 MG TABLET PO SCH ×2 (10:14→21:10)
[2016-06-16] MEDS: FAMOTIDINE 20 MG TABLET PO SCH ×2 (10:15→21:10)
[2016-06-16] MEDS: IRON POLYSACCHARIDE COMPLEX 1 CAP CAPSULE PO SCH ×3 (10:15→16:52)
[2016-06-16] MEDS: MULTIVITAMINS 1 CAP CAPSULE PO SCH (10:15)
[2016-06-16] MEDS: LEVOTHYROXINE SODIUM 25 MCG TABLET PO SCH (10:16)
[2016-06-16] MEDS: TOPIRAMATE 50 MG TABLET PO SCH ×2 (10:16→21:10)
[2016-06-16] MEDS: CLOPIDOGREL BISULFATE 75 MG TABLET PO SCH (10:16)
[2016-06-16] MEDS: NORMAL SALINE 1,000 ML IV PRN ×2 (10:20→19:07)
[2016-06-16] MEDS: APIXABAN 2.5 MG TABLET PO SCH ×2 (12:45→21:20)
[2016-06-16] MEDS: INSUL NPH HU REC/INS RG HU REC 100 UNITS/ML VIAL SC SCH ×2 (12:46→16:53)
[2016-06-16] MEDS: INSULIN REGULAR, HUMAN 100 UNITS/ML VIAL SC SCH (12:47)
[2016-06-16] MEDS: METOCLOPRAMIDE HCL 5 MG TABLET PO SCH ×3 (13:06→21:10)
--- NOTE | 2016-06-16 15:46 | PN ---
Subjective - Date and Time Seen Date: 06/16/16 Time: 07:30 Subjective Narrative: This is a 70-year-old woman who had a fever and fell and couldn't get up. She was admitted to the hospital. She most likely has a urinary tract infection. She may also have left lower lobe pneumonia. She is still somewhat short of breath at rest. She is known to have congestive heart failure, as well as a colovaginal fistula. She has morbid obesity, and obstructive sleep apnea. She feels a little bit better today, but not much. She also has diabetes. Cultures are pending. Objective - Review of Systems Generalized/Overall Review: Reports: Weakness, Malaise EENTM: Reports: No Symptoms Reported Respiratory: Reports: Cough, Shortness of Breath, Orthopnea Cardiac: Reports: No Symptoms Reported Abdominal: Reports: No Symptoms Reported Genitourinary Symptoms: Reports: No Symptoms Reported Musculoskeletal Complaints: Reports: Back Pain Neurological: Reports: No Symptoms Reported Skin: Reports: No Symptoms Reported Endocrine: Reports: No Symptoms Reported Misc: All systems neg except as marked - Vitals Vitals: Last Vital Signs Selected Entries 06/15/16 06/15/16 06/16/16 22:45 23:59 00:17 Temperature 38.7 C H 37.8 C H 37.8 C H Temperature Temporal Artery Source Scan Pulse Rate 102 H Respiratory 20 Rate Respiratory Normal Depth Respiratory Normal Effort Blood Pressure 129/39 Blood Pressure Supine Position O2 Sat by Pulse 91 Oximetry Oxygen Delivery Nasal Cannula Method Oxygen Flow 2 Rate 06/16/16 06/16/16 06/16/16 02:01 04:14 06:27 Temperature 37.6 C H 37.4 C Temperature Oral Axillary Source Pulse Rate 95 109 H Respiratory 22 H 24 H Rate Respiratory Normal Depth Respiratory Normal Effort Non-Labored Blood Pressure 124/74 Blood Pressure Sitting Position O2 Sat by Pulse 94 Oximetry Oxygen Delivery Nasal Cannula Nasal Cannula Method Oxygen Flow 2 2 Rate - Abnormal Lab Findings Abnormal Lab Findings: Abnormal Lab Results 06/16/16 06/16/16 Range/Units 05:22 05:22 WBC 12.2 H (4.0-10.5) K/mm3 RBC 3.65 L (4.2-5.4) M/mm3 Hgb 10.4 L (12.5-16.0) gm/dL Hct 34.5 L (37.0-47.0) % MCHC 30.1 L (32-36) g/dl RDW 17.7 H (11.5-14.0) % Plt Count 144 L (150-450) K/mm3 MPV 12.2 H (6.0-9.5) fl Neutrophils % (Manual) 89 H (42-75) % Band Neuts % (Manual) 3 H (0-2.0) % Lymphocytes % (Manual) 2 L (20-51) % Neutrophils # (Manual) 10.9 H (1.3-6.0) K/mm3 Lymphocytes # (Manual) 0.2 L (1.5-3.5) k/mm3 Platelet Estimate Decreased L (NORMAL) Anion Gap 14.7 H (6.8-13.8) mmol/L BUN 38 H (3-23) mg/dL Creatinine 1.78 H (0.4-1.4) mg/dL Est GFR (Non-Af Amer) 30 L (60-130) mL/min Random Glucose 223 H D (70-110) mg/dL B-Natriuretic Peptide 1592 H (5-325) pg/mL - Exam Constitutional: Present: Alert, Oriented x3, Cooperative, Well developed, Mild distress, Elderly, Morbidly obese ENT Exam: Present: normal ENT inspection, hearing grossly normal Neck: Present: normal inspection Respiratory: Present: rhonchi, No wheezing Cardiovascular/Chest: Present: regular rate, rhythm, no murmur Abdomen: Present: Normal bowel sounds, soft, nontender, nondistended, no rebound tenderness, no hepatospenomegaly, no masses, obese Extremity: Present: pedal edema, other - left hip pain with movement Neurologic: Present: alert, oriented x 3 Appearance: Present: appropriate appearance, appropriate insight, neat, no memory impairment, denies illness Eye contact: Present: cooperative, good eye contact, normal speech Thoughts: Present: normal thought pattern Cauti Physician Documentation - Urinary Catheter Management Urethral ([place]) Date of Insertion: 06/15/16 Time of Insertion: 11:37 Assessment/Plan Plan Narrative: MRI of the left hip on Saturday. IV antibiotics. Repeat chest x-ray today. Follow lab work. Follow blood sugars. Estimated hospital stay of at least several days. - Problems/Diagnosis (1) Fall Problem: Acute Qualifiers: Encounter type: initial encounter Qualified Code(s): W19.XXXA - Unspecified fall, initial encounter (2) Pneumonia Problem: Acute Qualifiers: Pneumonia type: due to unspecified organism Laterality: left Lung location: unspecified part of lung Qualified Code(s): J18.9 - Pneumonia, unspecified organism (3) UTI (urinary tract infection) Problem: Acute Qualifiers: Urinary tract infection type: acute cystitis Hematuria presence: without hematuria Qualified Code(s): N30.00 - Acute cystitis without hematuria (4) Diabetes mellitus out of control Problem: Acute Qualifiers: Diabetes mellitus type: type 2 Diabetes mellitus complication status: with unspecified complications Diabetes mellitus half-way insulin use: with half-way use Qualified Code(s): E11.8 - Type 2 diabetes mellitus with unspecified complications; E11.65 - Type 2 diabetes mellitus with hyperglycemia; Z79.4 - FDC (current) use of insulin (5) CHF (congestive heart failure) Problem: Chronic Qualifiers: Congestive heart failure type: unspecified congestive heart failure type Congestive heart failure chronicity: chronic Qualified Code(s): I50.9 - Heart failure, unspecified (6) Chronic respiratory failure with hypoxia and hypercapnia Problem: Chronic (7) Fibromyalgia Problem: Chronic (8) GERD (gastroesophageal reflux disease) Problem: Chronic Qualifiers: Esophagitis presence: without esophagitis Qualified Code(s): K21.9 - Gastro -esophageal reflux disease without esophagitis (9) Gout Problem: Chronic Qualifiers: Gout site: multiple sites Chronicity: chronic Presence of tophus: without tophus (10) Headache Problem: Chronic Qualifiers: Headache chronicity pattern: chronic headache Intractability: not intractable (11) Hyperlipidemia Problem: Chronic Qualifiers: Hyperlipidemia type: Mixed hyperlipidemia Qualified Code(s): E78.2 - Mixed hyperlipidemia (12) Hypertension Problem: Chronic Qualifiers: Hypertension type: essential hypertension Qualified Code(s): I10 - Essential (primary) hypertension (13) Hypothyroidism Problem: Chronic Qualifiers: Hypothyroidism type: acquired Qualified Code(s): E03.9 - Hypothyroidism, unspecified (14) Morbid obesity with BMI of 50.0-59.9, adult Problem: Chronic (15) Rectovaginal fistula Problem: Chronic (16) Venous insufficiency of both lower extremities Problem: Chronic (17) Venous stasis dermatitis Problem: Chronic Qualifiers: Laterality: bilateral Qualified Code(s): I83.11 - Varicose veins of right lower extremity with inflammation
[2016-06-16] MEDS: MEROPENEM 1 GM in NORMAL SALINE 100 ML IV SCH (16:54)
[2016-06-16] MEDS: ACETAMINOPHEN 500 MG TABLET PO PRN (19:06)
[2016-06-17] MEDS: ALBUTEROL SULFATE 2.5 MG/0.5 ML VIAL.NEB IH PRN (00:43)
[2016-06-17] MEDS: ACETAMINOPHEN 500 MG TABLET PO PRN (05:09)
[2016-06-17] MEDS: NORMAL SALINE 1,000 ML IV PRN ×2 (05:10→15:42)
[2016-06-17] MEDS: ALBUTEROL SULFATE/IPRATROPIUM 3 ML NEBU IH SCH ×4 (06:08→19:42)
[2016-06-17] MEDS: LEVOTHYROXINE SODIUM 25 MCG TABLET PO SCH (07:28)
[2016-06-17] MEDS: METOCLOPRAMIDE HCL 5 MG TABLET PO SCH ×4 (07:28→23:06)
[2016-06-17] MEDS: INSULIN LISPRO 100 UNITS/ML VIAL SC SCH (07:29)
[2016-06-17 07:39] LABS: Hematocrit 36.4 % (37.0-47.0); Hemoglobin 11.1 gm/dL (12.5-16.0); Mean Cell Volume 93.6 fl (78-100); Mean Corpuscular Hemoglobin 28.5 pg (27-31); Mean Corpuscular Hgb Conc 30.5 g/dl (32-36); Mean Platelet Volume 11.2 fl (6.0-9.5); Platelet Count 151 K/mm3 (150-450); Red Blood Count 3.89 M/mm3 (4.2-5.4); Red Cell Distribution Width 17.8 % (11.5-14.0); White Blood Count 8.4 K/mm3 (4.0-10.5)
[2016-06-17 07:45] LABS: Total Cells Counted 100
[2016-06-17 08:07] LABS: Albumin * 2.5 gm/dl (3.4-5.0); Anion Gap 14.2 mmol/L (6.8-13.8); BUN/Creatinine Ratio 26.7 (9.0-21.6); Bilirubin, Total 0.3 mg/dL (0.0-1.1); Ca. Corrected For Albumin 10.6 mg/dL (8.4-10.2); Calcium * 9.7 mg/dL (7.9-10.9); Carbon Dioxide 25.6 mmol/L (24-32.6); Potassium 4.8 mmol/L (3.4-4.6); Total Protein 6.9 gm/dL (6.2-8.2)
[2016-06-17 08:16] LABS: Atypical (Reactive) Lymph 3 % (0-2); Lymphocyte 10 % (20-51); Monocyte 17 % (0-9); Neutrophil 70 % (42-75); Neutrophil # 5.9 K/mm3 (1.3-6.0); Platelet Estimate Normal (NORMAL)
[2016-06-17 08:17] LABS: Anisocytosis 2+
[2016-06-17] MEDS ORDERED: INSULIN REGULAR, HUMAN 100 UNITS/ML VIAL SC SCH (09:00)
[2016-06-17] MEDS: ACARBOSE 25 MG PO SCH ×3 (09:08→17:11)
[2016-06-17] MEDS: ASPIRIN 81 MG TABLET.DR PO SCH (09:09)
[2016-06-17] MEDS: HYDROPHILIC OINTMENT 454 APPL JAR TP SCH ×2 (09:09→22:53)
[2016-06-17] MEDS: PIOGLITAZONE HCL 15 MG TABLET PO SCH (09:09)
[2016-06-17] MEDS: CARBINOXAMINE PO SCH ×3 (09:10→17:12)
[2016-06-17] MEDS: AMIODARONE HCL 200 MG TABLET PO SCH ×2 (09:10→22:57)
[2016-06-17] MEDS: SUCRALFATE 1 G TABLET PO SCH ×4 (09:10→23:04)
[2016-06-17] MEDS: LOSARTAN POTASSIUM 50 MG TABLET PO SCH (09:11)
[2016-06-17] MEDS: FLUCONAZOLE 200 MG TABLET PO SCH (09:16)
[2016-06-17] MEDS: ROSUVASTATIN CALCIUM 10 MG TABLET PO SCH (09:16)
[2016-06-17] MEDS: sitaGLIPtin PHOSPHATE 50 MG TABLET PO SCH (09:18)
[2016-06-17] MEDS: AMMONIUM LACTATE 225 APPL BTL TP SCH ×2 (09:20→22:54)
[2016-06-17] MEDS: METOPROLOL TARTRATE 100 MG TABLET PO SCH ×2 (09:20→23:05)
[2016-06-17] MEDS: MULTIVITAMINS 1 CAP CAPSULE PO SCH (09:21)
[2016-06-17] MEDS: PRAZOSIN HCL 5 MG CAPSULE PO SCH (09:21)
[2016-06-17] MEDS: FAMOTIDINE 20 MG TABLET PO SCH ×2 (09:23→23:05)
[2016-06-17] MEDS: CLOPIDOGREL BISULFATE 75 MG TABLET PO SCH (09:24)
[2016-06-17] MEDS: TOPIRAMATE 50 MG TABLET PO SCH ×2 (09:24→23:11)
[2016-06-17] MEDS: IRON POLYSACCHARIDE COMPLEX 1 CAP CAPSULE PO SCH ×3 (09:28→17:12)
[2016-06-17] MEDS: POTASSIUM CHLORIDE 20 MEQ TABLET.SA PO SCH (09:29)
[2016-06-17] MEDS: INSUL NPH HU REC/INS RG HU REC 100 UNITS/ML VIAL SC SCH ×3 (09:48→17:17)
[2016-06-17] MEDS: APIXABAN 2.5 MG TABLET PO SCH ×2 (09:59→22:55)
--- NOTE | 2016-06-17 11:43 | PN ---
Subjective - Date and Time Seen Date: 06/17/16 Time: 07:20 Subjective Narrative: This is a 70-year-old woman who had a fever and fell and couldn't get up. She was admitted to the hospital. She most likely has a urinary tract infection. She may also have left lower lobe pneumonia. She is less short of breath at rest. She is known to have congestive heart failure, as well as a colovaginal fistula. She has morbid obesity, and obstructive sleep apnea. She feels much better today. She also has diabetes. Cultures are pending. Something went pop in her hip, and now it doesn't hurt at all any more. Objective - Review of Systems Generalized/Overall Review: Reports: Weakness EENTM: Reports: No Symptoms Reported Respiratory: Reports: Cough, Shortness of Breath Cardiac: Reports: No Symptoms Reported Abdominal: Reports: No Symptoms Reported Genitourinary Symptoms: Reports: No Symptoms Reported Musculoskeletal Complaints: Reports: Neck Pain Neurological: Reports: No Symptoms Reported Skin: Reports: No Symptoms Reported Endocrine: Reports: No Symptoms Reported Misc: All systems neg except as marked - Vitals Vitals: Last Vital Signs Selected Entries 06/16/16 06/17/16 06/17/16 23:00 00:43 06:18 Temperature 37.0 C Temperature Oral Source Pulse Rate 68 64 68 Respiratory 22 H 20 20 Rate Blood Pressure 115/48 Blood Pressure Supine Position O2 Sat by Pulse 98 100 Oximetry Oxygen Delivery Nasal Cannula Nasal Cannula Nasal Cannula Method Oxygen Flow 2 2 2 Rate - Abnormal Lab Findings Abnormal Lab Findings: Abnormal Lab Results 06/17/16 06/17/16 Range/Units 07:35 07:35 RBC 3.89 L (4.2-5.4) M/mm3 Hgb 11.1 L (12.5-16.0) gm/dL Hct 36.4 L (37.0-47.0) % MCHC 30.5 L (32-36) g/dl RDW 17.8 H (11.5-14.0) % MPV 11.2 H (6.0-9.5) fl Lymphocytes % (Manual) 10 L (20-51) % Monocytes % (Manual) 17 H (0-9) % Lymphocytes # (Manual) 0.8 L (1.5-3.5) k/mm3 Monocytes # (Manual) 1.4 H (0.0-1.0) k/mm3 Atypic/Reactive Lymphs 3 H (0-2) % Potassium 4.8 H (3.4-4.6) mmol/L Anion Gap 14.2 H (6.8-13.8) mmol/L BUN 43 H (3-23) mg/dL Creatinine 1.61 H (0.4-1.4) mg/dL Est GFR (Non-Af Amer) 34 L (60-130) mL/min BUN/Creatinine Ratio 26.7 H (9.0-21.6) Random Glucose 177 H (70-110) mg/dL Calcium Adj for Albumin 10.6 H (8.4-10.2) mg/dL Albumin 2.5 L (3.4-5.0) gm/dl - Exam Constitutional: Present: Alert, Oriented x3, Cooperative, Well developed, No distress, Morbidly obese ENT Exam: Present: normal ENT inspection, hearing grossly normal Neck: Present: normal inspection Respiratory: Present: decreased breath sounds, expiration (prolonged) Cardiovascular/Chest: Present: regular rate, rhythm, no murmur Abdomen: Present: Normal bowel sounds, soft, nontender, nondistended, no rebound tenderness, no hepatospenomegaly, no masses, obese Extremity: Present: pedal edema Skin Exam: Present: normal color, warm/dry, no cyanosis Neurologic: Present: alert, oriented x 3 Appearance: Present: appropriate appearance, appropriate insight, neat, no memory impairment Eye contact: Present: cooperative, good eye contact, normal speech Thoughts: Present: normal thought pattern Cauti Physician Documentation - Urinary Catheter Management Urethral ([place]) Date of Insertion: 06/15/16 Time of Insertion: 11:37 Assessment/Plan Plan Narrative: Up more. DC hip MRI order. Follow labs. DC telemetry. Continue IV antibiotics. - Problems/Diagnosis (1) Fall Problem: Acute Qualifiers: Encounter type: initial encounter Qualified Code(s): W19.XXXA - Unspecified fall, initial encounter (2) Pneumonia Problem: Acute Qualifiers: Pneumonia type: due to unspecified organism Laterality: left Lung location: unspecified part of lung Qualified Code(s): J18.9 - Pneumonia, unspecified organism (3) UTI (urinary tract infection) Problem: Acute Qualifiers: Urinary tract infection type: acute cystitis Hematuria presence: without hematuria Qualified Code(s): N30.00 - Acute cystitis without hematuria (4) Diabetes mellitus out of control Problem: Acute Qualifiers: Diabetes mellitus type: type 2 Diabetes mellitus complication status: with unspecified complications Diabetes mellitus long term care pharmacist insulin use: with care home use Qualified Code(s): E11.8 - Type 2 diabetes mellitus with unspecified complications; E11.65 - Type 2 diabetes mellitus with hyperglycemia; Z79.4 - long term care pharmacist (current) use of insulin (5) CHF (congestive heart failure) Problem: Chronic Qualifiers: Congestive heart failure type: unspecified congestive heart failure type Congestive heart failure chronicity: chronic Qualified Code(s): I50.9 - Heart failure, unspecified (6) Chronic respiratory failure with hypoxia and hypercapnia Problem: Chronic (7) Fibromyalgia Problem: Chronic (8) GERD (gastroesophageal reflux disease) Problem: Chronic Qualifiers: Esophagitis presence: without esophagitis Qualified Code(s): K21.9 - Gastro -esophageal reflux disease without esophagitis (9) Gout Problem: Chronic Qualifiers: Gout site: multiple sites Chronicity: chronic Presence of tophus: without tophus (10) Headache Problem: Chronic Qualifiers: Headache chronicity pattern: chronic headache Intractability: not intractable (11) Hyperlipidemia Problem: Chronic Qualifiers: Hyperlipidemia type: Mixed hyperlipidemia Qualified Code(s): E78.2 - Mixed hyperlipidemia (12) Hypertension Problem: Chronic Qualifiers: Hypertension type: essential hypertension Qualified Code(s): I10 - Essential (primary) hypertension (13) Hypothyroidism Problem: Chronic Qualifiers: Hypothyroidism type: acquired Qualified Code(s): E03.9 - Hypothyroidism, unspecified (14) Morbid obesity with BMI of 50.0-59.9, adult Problem: Chronic (15) Rectovaginal fistula Problem: Chronic (16) Venous insufficiency of both lower extremities Problem: Chronic (17) Venous stasis dermatitis Problem: Chronic Qualifiers: Laterality: bilateral Qualified Code(s): I83.11 - Varicose veins of right lower extremity with inflammation
[2016-06-17] MEDS: INSULIN REGULAR, HUMAN 100 UNITS/ML VIAL SC SCH (12:06)
[2016-06-17] MEDS: MEROPENEM 1 GM in NORMAL SALINE 100 ML IV SCH (17:17)
[2016-06-17] MEDS ORDERED: POTASSIUM CHLORIDE 20 MEQ TABLET.SA PO SCH (21:00)
[2016-06-18] MEDS: ALBUTEROL SULFATE 2.5 MG/0.5 ML VIAL.NEB IH PRN (02:08)
[2016-06-18] MEDS: NORMAL SALINE 1,000 ML IV PRN ×2 (02:40→14:42)
[2016-06-18] MEDS: ALBUTEROL SULFATE/IPRATROPIUM 3 ML NEBU IH SCH ×4 (06:09→18:13)
[2016-06-18 06:32] LABS: Hematocrit 35.3 % (37.0-47.0); Hemoglobin 10.8 gm/dL (12.5-16.0); Mean Cell Volume 94.1 fl (78-100); Mean Corpuscular Hemoglobin 28.8 pg (27-31); Mean Corpuscular Hgb Conc 30.6 g/dl (32-36); Mean Platelet Volume 11.8 fl (6.0-9.5); Neutrophil # 5.3 K/mm3 (1.3-6.0); Neutrophil % 68.7 % (42-75.0); Platelet Count 176 K/mm3 (150-450); Red Blood Count 3.75 M/mm3 (4.2-5.4); Red Cell Distribution Width 18.1 % (11.5-14.0); White Blood Count 7.8 K/mm3 (4.0-10.5)
[2016-06-18 06:40] LABS: Anion Gap 12.2 mmol/L (6.8-13.8); BUN/Creatinine Ratio 30.2 (9.0-21.6); Calcium * 9.6 mg/dL (7.9-10.9); Carbon Dioxide 24.1 mmol/L (24-32.6); Estimated Creat Clear 36.2; Potassium 5.3 mmol/L (3.4-4.6)
[2016-06-18] MEDS: METOCLOPRAMIDE HCL 5 MG TABLET PO SCH ×4 (07:23→20:29)
[2016-06-18] MEDS: LEVOTHYROXINE SODIUM 25 MCG TABLET PO SCH (07:23)
[2016-06-18] MEDS: INSULIN REGULAR, HUMAN 100 UNITS/ML VIAL SC SCH ×2 (07:45→12:50)
[2016-06-18] MEDS ORDERED: INSULIN REGULAR, HUMAN 100 UNITS/ML VIAL SC ONE ×2 (08:00→12:37)
[2016-06-18] MEDS: sitaGLIPtin PHOSPHATE 50 MG TABLET PO SCH (09:57)
[2016-06-18] MEDS: SUCRALFATE 1 G TABLET PO SCH ×4 (09:57→20:21)
[2016-06-18] MEDS: ROSUVASTATIN CALCIUM 10 MG TABLET PO SCH (09:57)
[2016-06-18] MEDS: LOSARTAN POTASSIUM 50 MG TABLET PO SCH (09:57)
[2016-06-18] MEDS: PRAZOSIN HCL 5 MG CAPSULE PO SCH (09:57)
[2016-06-18] MEDS: FAMOTIDINE 20 MG TABLET PO SCH ×2 (09:58→20:29)
[2016-06-18] MEDS: AMIODARONE HCL 200 MG TABLET PO SCH ×2 (09:58→20:22)
[2016-06-18] MEDS: MULTIVITAMINS 1 CAP CAPSULE PO SCH (09:58)
[2016-06-18] MEDS: APIXABAN 2.5 MG TABLET PO SCH ×2 (09:58→20:23)
[2016-06-18] MEDS: ASPIRIN 81 MG TABLET.DR PO SCH (09:58)
[2016-06-18] MEDS: METOPROLOL TARTRATE 100 MG TABLET PO SCH ×2 (09:58→20:30)
[2016-06-18] MEDS: FLUCONAZOLE 200 MG TABLET PO SCH (09:58)
[2016-06-18] MEDS: HYDROPHILIC OINTMENT 454 APPL JAR TP SCH ×2 (09:59→20:20)
[2016-06-18] MEDS: AMMONIUM LACTATE 225 APPL BTL TP SCH ×2 (09:59→20:23)
[2016-06-18] MEDS: ACARBOSE 25 MG PO SCH (09:59)
[2016-06-18] MEDS: CARBINOXAMINE PO SCH (09:59)
[2016-06-18] MEDS: CLOPIDOGREL BISULFATE 75 MG TABLET PO SCH (09:59)
[2016-06-18] MEDS: PIOGLITAZONE HCL 15 MG TABLET PO SCH (09:59)
[2016-06-18] MEDS: IRON POLYSACCHARIDE COMPLEX 1 CAP CAPSULE PO SCH ×3 (09:59→17:45)
[2016-06-18] MEDS: TOPIRAMATE 50 MG TABLET PO SCH ×2 (10:14→20:32)
[2016-06-18] MEDS: HUM INSULIN NPH/REG INSULIN HM 100 UNIT/ML VIAL SC SCH ×2 (12:51→18:30)
[2016-06-18] MEDS: INSUL NPH HU REC/INS RG HU REC 100 UNITS/ML VIAL SC SCH (12:52)
[2016-06-18] MEDS ORDERED: HUM INSULIN NPH/REG INSULIN HM 100 UNIT/ML VIAL SC ONE (13:00)
[2016-06-18] MEDS: CARBINOXAMINE MALEATE 4 MG PO SCH ×2 (13:47→17:35)
[2016-06-18] MEDS: ACETAMINOPHEN 500 MG TABLET PO PRN (18:46)
--- NOTE | 2016-06-18 19:14 | PN ---
Subjective - Date and Time Seen Date: 06/18/16 Time: 06:40 Subjective Narrative: This is a 70-year-old woman who had a fever and fell and couldn't get up at home. She was admitted to the [facility]. She has a urinary tract infection and is growing the same gram negative organism out of one of two blood cultures. She may also have left lower lobe pneumonia. She is now much less short of breath at rest than when she was admitted. She is known to have congestive heart failure, as well as a chronic colovaginal fistula, which cannot be repaired because of other significant comorbidities. She has morbid obesity, and obstructive sleep apnea, but she refuses to wear a CPAP device. She is feeling much better day by day. She also has diabetes. At admission, her left hip hurt enough she was unable to stand or ambulate. Something went "pop" following admission, resulting in relief of that pain, and now her ambulation ability is back to her usual normal. It appears she also had atrial fibrillation at the time of admission. She is on appropriate IV antibiotics, and will probably be ready for discharge tomorrow or the next day. Objective - Review of Systems Generalized/Overall Review: Reports: No Symptoms Reported EENTM: Reports: No Symptoms Reported Respiratory: Reports: Shortness of Breath - slight, uses n.c. O2 continuously at home Cardiac: Reports: Edema - chronic edema lower extremities Abdominal: Reports: No Symptoms Reported Genitourinary Symptoms: Reports: No Symptoms Reported Musculoskeletal Complaints: Reports: No Symptoms Reported Neurological: Reports: No Symptoms Reported Skin: Reports: No Symptoms Reported Endocrine: Reports: No Symptoms Reported Misc: All systems neg except as marked - Vitals Vitals: Last Vital Signs Selected Entries 06/15/16 06/15/16 06/16/16 10:37 12:55 06:27 Temperature 38.6 C H Temperature Tympanic Source Pulse Rate 92 Respiratory 16 24 H Rate Respiratory Normal Depth Respiratory Normal Effort Non-Labored Respiratory Normal Pattern Blood Pressure 87/34 Blood Pressure Supine Position O2 Sat by Pulse 93 89 L Oximetry Oxygen Delivery Room Air Method Oxygen Flow Rate 06/16/16 06/16/16 06/18/16 07:45 19:00 03:00 Temperature 39.3 C H 38.6 C H 37.4 C Temperature Oral Oral Oral Source Pulse Rate 107 H 84 71 Respiratory 20 22 H 22 H Rate Respiratory Depth Respiratory Effort Respiratory Pattern Blood Pressure 124/57 120/54 140/66 Blood Pressure Supine Supine Supine Position O2 Sat by Pulse 96 100 98 Oximetry Oxygen Delivery Nasal Cannula Nasal Cannula Nasal Cannula Method Oxygen Flow 2 2 2 Rate 06/18/16 06/18/16 06:09 06:19 Temperature Temperature Source Pulse Rate 66 65 Respiratory 18 20 Rate Respiratory Depth Respiratory Effort Respiratory Pattern Blood Pressure Blood Pressure Position O2 Sat by Pulse 99 Oximetry Oxygen Delivery Nasal Cannula Method Oxygen Flow 2 Rate - Abnormal Lab Findings Abnormal Lab Findings: Abnormal Lab Results 06/18/16 06/18/16 Range/Units 06:25 06:25 RBC 3.75 L (4.2-5.4) M/mm3 Hgb 10.8 L (12.5-16.0) gm/dL Hct 35.3 L (37.0-47.0) % MCHC 30.6 L (32-36) g/dl RDW 18.1 H (11.5-14.0) % MPV 11.8 H (6.0-9.5) fl Immature Gran % (Auto) 0.50 H (0.001-0.429) % Immature Gran # (Auto) 0.04 H (0.000-0.0310) K/mm3 Lymphocytes % 10.1 L (20-51) % Monocytes % 18.6 H (0.0-9) % Lymphocytes # 0.8 L (1.5-3.5) k/mm3 Monocytes # 1.4 H (0.0-1.0) k/mm3 Potassium 5.3 H (3.4-4.6) mmol/L BUN 35 H (3-23) mg/dL Est GFR (Non-Af Amer) 49 L D (60-130) mL/min BUN/Creatinine Ratio 30.2 H (9.0-21.6) - Exam Constitutional: Present: Alert, Oriented x3, Cooperative, Well developed, Elderly, Morbidly obese ENT Exam: Present: normal ENT inspection, hearing grossly normal Neck: Present: normal inspection Respiratory: Present: lungs clear, no respiratory distress Cardiovascular/Chest: Present: regular rate, rhythm, no murmur Abdomen: Present: Normal bowel sounds, soft, nontender, nondistended, no rebound tenderness, no hepatospenomegaly, no masses, obese Extremity: Present: pedal edema Skin Exam: Present: normal color, warm/dry, no cyanosis Neurologic: Present: alert, oriented x 3 Appearance: Present: appropriate appearance, appropriate insight, neat, no memory impairment Eye contact: Present: cooperative, good eye contact, normal speech Thoughts: Present: normal thought pattern Cauti Physician Documentation - Urinary Catheter Management Urethral ([place]) Date of Insertion: 06/15/16 Time of Insertion: 11:37 Assessment/Plan Plan Narrative: IV antibiotics. follow labs. adjust insulin, because her sugars are running lower. await echo report. repeat ekg. possibly home tomorrow or the next day. - Problems/Diagnosis (1) Fall Problem: Resolved Qualifiers: Encounter type: initial encounter Qualified Code(s): W19.XXXA - Unspecified fall, initial encounter (2) Pneumonia Problem: Acute Qualifiers: Pneumonia type: due to other aerobic Gram-negative bacteria Laterality: left Lung location: unspecified part of lung Qualified Code(s): J15.6 - Pneumonia due to other aerobic Gram-negative bacteria (3) UTI (urinary tract infection) Problem: Acute Qualifiers: Urinary tract infection type: acute cystitis Hematuria presence: without hematuria Qualified Code(s): N30.00 - Acute cystitis without hematuria Narrative: Escherichia fergusonii (4) Diabetes mellitus out of control Problem: Acute Qualifiers: Diabetes mellitus type: type 2 Diabetes mellitus complication status: with unspecified complications Diabetes mellitus petroleum terminal plant operator insulin use: with petroleum terminal plant operator use Qualified Code(s): E11.8 - Type 2 diabetes mellitus with unspecified complications; E11.65 - Type 2 diabetes mellitus with hyperglycemia; Z79.4 - petroleum terminal plant operator (current) use of insulin (5) CHF (congestive heart failure) Problem: Chronic Qualifiers: Congestive heart failure type: unspecified congestive heart failure type Congestive heart failure chronicity: chronic Qualified Code(s): I50.9 - Heart failure, unspecified (6) Chronic respiratory failure with hypoxia and hypercapnia Problem: Chronic (7) Fibromyalgia Problem: Chronic (8) GERD (gastroesophageal reflux disease) Problem: Chronic Qualifiers: Esophagitis presence: without esophagitis Qualified Code(s): K21.9 - Gastro -esophageal reflux disease without esophagitis (9) Gout Problem: Chronic Qualifiers: Gout site: multiple sites Chronicity: chronic Presence of tophus: without tophus (10) Headache Problem: Chronic Qualifiers: Headache chronicity pattern: chronic headache Intractability: not intractable (11) Hyperlipidemia Problem: Chronic Qualifiers: Hyperlipidemia type: Mixed hyperlipidemia Qualified Code(s): E78.2 - Mixed hyperlipidemia (12) Hypertension Problem: Chronic Qualifiers: Hypertension type: essential hypertension Qualified Code(s): I10 - Essential (primary) hypertension (13) Hypothyroidism Problem: Chronic Qualifiers: Hypothyroidism type: acquired Qualified Code(s): E03.9 - Hypothyroidism, unspecified (14) Morbid obesity with BMI of 50.0-59.9, adult Problem: Chronic (15) Rectovaginal fistula Problem: Chronic (16) Venous insufficiency of both lower extremities Problem: Chronic (17) Venous stasis dermatitis Problem: Chronic Qualifiers: Laterality: bilateral Qualified Code(s): I83.11 - Varicose veins of right lower extremity with inflammation (18) Gram negative sepsis Problem: Acute Narrative: Escherichia fergusonii (19) Atrial fibrillation Problem: Acute Qualifiers: Atrial fibrillation type: paroxysmal Qualified Code(s): I48.0 - Paroxysmal atrial fibrillation Narrative: due to sepsis
--- NOTE | 2016-06-18 19:49 | PN ---
Progess Note - Interim Narrative: 06/18/16 19:48 EKG this evening shows a fib/flutter. Will add eliquis.
[2016-06-19] MEDS: NORMAL SALINE 1,000 ML IV PRN ×2 (01:19→12:10)
[2016-06-19] MEDS: ALBUTEROL SULFATE 2.5 MG/0.5 ML VIAL.NEB IH PRN ×2 (02:19→10:18)
[2016-06-19 05:19] LABS: Anion Gap 13.6 mmol/L (6.8-13.8); BUN/Creatinine Ratio 29.2 (9.0-21.6); Calcium * 9.7 mg/dL (7.9-10.9); Carbon Dioxide 22.7 mmol/L (24-32.6); Estimated Creat Clear 39.6; Potassium 5.3 mmol/L (3.4-4.6)
[2016-06-19] MEDS: ALBUTEROL SULFATE/IPRATROPIUM 3 ML NEBU IH SCH ×2 (06:02→10:17)
--- NOTE | 2016-06-19 07:36 | DS ---
(1) Fall Problem: Resolved Qualifiers: Encounter type: initial encounter Qualified Code(s): W19.XXXA - Unspecified fall, initial encounter (2) Pneumonia Problem: Acute Qualifiers: Pneumonia type: due to other aerobic Gram-negative bacteria Laterality: left Lung location: unspecified part of lung Qualified Code(s): J15.6 - Pneumonia due to other aerobic Gram-negative bacteria (3) UTI (urinary tract infection) Problem: Acute Qualifiers: Urinary tract infection type: acute cystitis Hematuria presence: without hematuria Qualified Code(s): N30.00 - Acute cystitis without hematuria (4) Diabetes mellitus out of control Problem: Acute Qualifiers: Diabetes mellitus type: type 2 Diabetes mellitus complication status: with unspecified complications Diabetes mellitus keno terminal operator insulin use: with keno terminal operator use Qualified Code(s): E11.8 - Type 2 diabetes mellitus with unspecified complications; E11.65 - Type 2 diabetes mellitus with hyperglycemia; Z79.4 - terminologist (current) use of insulin (5) CHF (congestive heart failure) Problem: Chronic Qualifiers: Congestive heart failure type: unspecified congestive heart failure type Congestive heart failure chronicity: chronic Qualified Code(s): I50.9 - Heart failure, unspecified (6) Chronic respiratory failure with hypoxia and hypercapnia Problem: Chronic (7) Fibromyalgia Problem: Chronic (8) GERD (gastroesophageal reflux disease) Problem: Chronic Qualifiers: Esophagitis presence: without esophagitis Qualified Code(s): K21.9 - Gastro -esophageal reflux disease without esophagitis (9) Gout Problem: Chronic Qualifiers: Gout site: multiple sites Chronicity: chronic Presence of tophus: without tophus (10) Headache Problem: Chronic Qualifiers: Headache chronicity pattern: chronic headache Intractability: not intractable (11) Hyperlipidemia Problem: Chronic Qualifiers: Hyperlipidemia type: Mixed hyperlipidemia Qualified Code(s): E78.2 - Mixed hyperlipidemia (12) Hypertension Problem: Chronic Qualifiers: Hypertension type: essential hypertension Qualified Code(s): I10 - Essential (primary) hypertension (13) Hypothyroidism Problem: Chronic Qualifiers: Hypothyroidism type: acquired Qualified Code(s): E03.9 - Hypothyroidism, unspecified (14) Morbid obesity with BMI of 50.0-59.9, adult Problem: Chronic (15) Rectovaginal fistula Problem: Chronic (16) Venous insufficiency of both lower extremities Problem: Chronic (17) Venous stasis dermatitis Problem: Chronic Qualifiers: Laterality: bilateral Qualified Code(s): I83.11 - Varicose veins of right lower extremity with inflammation (18) Gram negative sepsis Problem: Acute (19) Atrial fibrillation Problem: Chronic Qualifiers: Atrial fibrillation type: chronic Qualified Code(s): I48.2 - Chronic atrial fibrillation (20) Hyperkalemia Problem: Acute (21) JACINTO (obstructive sleep apnea) Problem: Resolved Description of Stay: Cultures obtain. Antibiotics started IV. Grew E. fergusonii out of urine and one of two blood cultures. Patient steadily improved and sugars improved. Insulin and elctrolytes adjusted. Originially presented with hip pain and inability to walk. Shortly after admission, she heard a "pop" in her left hip area, the pain went away, and she was able to ambulate as usual. In the distant past, she had a CPAP machine. Her machine broke, and a subsequent sleep study showed she no longer required CPAP. She has probably had chronic atrial fibrillation, and has had during this admission with controlled rate. We will use Eliquis now for clot prevention. Procedures Performed: none Discharge Disposition: Home self care Disposition: Home self-care Condition: Fair Discharge Activity: Activity as tolerated Discharge Diet: Consistent carbs, Low salt Referrals: Abe Castro MD [Primary Care Provider] - Problem Oriented Discharge Instructions to Patient/Family: Pyelonephritis, Adult, Sepsis, Adult, Atrial Fibrillation, [id number] Additional Patient Instructions (free text): CBC and CMP blood test in 1 week. EKG in [address] Metz in 1 week. O2 2 liters per minute n.c. at all times. Fingerstick blood sugars before meals and at bedtime. Prescriptions (Any new or edited meds): Acetaminophen [Tylenol] 650 mg PO QID PRN #1 tab PRN Reason: Pain Amiodarone HCl [Cordarone] 400 mg PO BID #60 tablet Apixaban [Eliquis] 5 mg PO BID #60 tablet Cefuroxime Axetil [Ceftin] 500 mg PO BID #30 tab Fluconazole [Diflucan] 200 mg PO DAILY #30 tablet Insulin NPH Hum/Reg Insulin Hm [Humulin 70-30] 20 unit SC AC 30 Days Insulin Regular, Human [Humulin R] 25 units SC DAILY@1130 30 Days Insulin Regular, Human [Humulin R] 60 units SC DAILY@0700 30 Days Complete Home Medications List: Complete Home Medication List: Albuterol Sulfate [Ventolin HFA] 2 puff IH Q4H PRN 03/19/16 Albuterol Sulfate/Ipratropium [Duoneb 2.5-0.5MG/3ML Soln] 3 ml IH QID 03/19/16 Ammonium Lactate [Amlactin] 1 appl TP BID 03/19/16 Atorvastatin Calcium 40 mg PO DAILY 03/19/16 Carbinoxamine Maleate [Arbinoxa] 4 mg PO TID 03/19/16 Clopidogrel Bisulfate [Plavix] 75 mg PO DAILY 03/19/16 Famotidine 20 mg PO BID 03/19/16 Furosemide [Lasix] 20 mg PO BID 03/19/16 Hydrophilic Ointment [Aquaphilic Ointment] 1 appl TP BID 03/19/16 Levothyroxine Sodium [Synthroid] 25 mcg PO DAILY 03/19/16 Losartan Potassium [Cozaar] 100 mg PO DAILY 03/19/16 Metoclopramide HCl [Reglan] 5 mg PO ACHS 03/19/16 Metoprolol Tartrate 100 mg PO BID 03/19/16 Multivitamin [One Daily Essential] 1 each PO DAILY 03/19/16 Prazosin HCl [Minipress] 5 mg PO DAILY 03/19/16 Sucralfate [Carafate] 1 gm PO QID 03/19/16 Trolamine Salicylate [Aspercreme] 1 appl TP QID PRN 03/19/16 Acarbose [Precose] 25 mg PO TID 06/15/16 Hydrocortison-Acetic Acid Soln 1 drop EACH EAR QID PRN 06/15/16 Iron Aspgly&Ps Cmplx/C/Sucac [Ferrex 150 Plus Capsule] 1 each PO TID 06/15/16 Januvia 50 mg PO DAILY 06/15/16 Pioglitazone HCl [Actos] 15 mg PO DAILY 06/15/16 Topiramate [Topamax] 25 mg PO BID 06/15/16 Acetaminophen [Tylenol] 650 mg PO QID PRN #1 tab 06/19/16 Albuterol Sulfate [Albuterol Sulfate 2.5 MG/0.5ML] 2.5 mg IH Q4H PRN #0 vial.neb 06/19/16 Amiodarone HCl [Cordarone] 400 mg PO BID #60 tablet 06/19/16 Apixaban [Eliquis] 5 mg PO BID #60 tablet 06/19/16 Cefuroxime Axetil [Ceftin] 500 mg PO BID #30 tab 06/19/16 Fluconazole [Diflucan] 200 mg PO DAILY #30 tablet 06/19/16 Insulin NPH Hum/Reg Insulin Hm [Humulin 70-30] 20 unit SC AC 30 Days 06/19/16 Insulin Regular, Human [Humulin R] 25 units SC DAILY@1130 30 Days 06/19/16 Insulin Regular, Human [Humulin R] 60 units SC DAILY@0700 30 Days 06/19/16 Multivitamins [Multivitamin Jaylon] 1 cap PO DAILY capsule 06/19/16
[2016-06-19] MEDS: METOCLOPRAMIDE HCL 5 MG TABLET PO SCH ×2 (07:45→12:07)
[2016-06-19] MEDS: LEVOTHYROXINE SODIUM 25 MCG TABLET PO SCH (07:45)
[2016-06-19] MEDS: INSULIN REGULAR, HUMAN 100 UNITS/ML VIAL SC SCH ×2 (07:46→12:05)
[2016-06-19] MEDS: HUM INSULIN NPH/REG INSULIN HM 100 UNIT/ML VIAL SC SCH ×2 (07:50→12:06)
[2016-06-19] MEDS: TOPIRAMATE 50 MG TABLET PO SCH (09:53)
[2016-06-19] MEDS: LOSARTAN POTASSIUM 50 MG TABLET PO SCH (09:53)
[2016-06-19] MEDS: APIXABAN 2.5 MG TABLET PO SCH (09:53)
[2016-06-19] MEDS: MULTIVITAMINS 1 CAP CAPSULE PO SCH (09:53)
[2016-06-19] MEDS: CLOPIDOGREL BISULFATE 75 MG TABLET PO SCH (09:53)
[2016-06-19] MEDS: AMIODARONE HCL 200 MG TABLET PO SCH (09:54)
[2016-06-19] MEDS: SUCRALFATE 1 G TABLET PO SCH ×2 (09:54→14:07)
[2016-06-19] MEDS: sitaGLIPtin PHOSPHATE 50 MG TABLET PO SCH (09:54)
[2016-06-19] MEDS: IRON POLYSACCHARIDE COMPLEX 1 CAP CAPSULE PO SCH ×2 (09:54→14:07)
[2016-06-19] MEDS: METOPROLOL TARTRATE 100 MG TABLET PO SCH (09:54)
[2016-06-19] MEDS: ASPIRIN 81 MG TABLET.DR PO SCH (09:54)
[2016-06-19] MEDS: FLUCONAZOLE 200 MG TABLET PO SCH (09:54)
[2016-06-19] MEDS: PIOGLITAZONE HCL 15 MG TABLET PO SCH (09:54)
[2016-06-19] MEDS: PRAZOSIN HCL 5 MG CAPSULE PO SCH (09:55)
[2016-06-19] MEDS: AMMONIUM LACTATE 225 APPL BTL TP SCH (09:55)
[2016-06-19] MEDS: FAMOTIDINE 20 MG TABLET PO SCH (09:55)
[2016-06-19] MEDS: HYDROPHILIC OINTMENT 454 APPL JAR TP SCH (09:59)
[2016-06-19] MEDS: ROSUVASTATIN CALCIUM 10 MG TABLET PO SCH (10:03)
[2016-06-19] MEDS: CARBINOXAMINE MALEATE 4 MG PO SCH ×2 (10:03→12:08)
[2016-06-19 10:16] VITALS: BP 161/68
--- NOTE | 2016-06-20 08:53 | ECHO ---
This report is available in the EMR
== END 2016-06-19 14:40 | disposition home or self-care (01) | DRG 178 ==
LOC: ER 10:34 → MS 12:54
PROVIDERS: ADMIT Internal Medicine; ATTEND Allergy & Immunology
DX: J15.6 Pneumonia due to other Gram-negative bacteria (principal); N39.0 Urinary tract infection, site not specified; J96.11 Chronic respiratory failure with hypoxia; E87.5 Hyperkalemia; E11.65 Type 2 diabetes mellitus with hyperglycemia; E78.2 Mixed hyperlipidemia; I10 Essential (primary) hypertension; I83.11 Varicose veins of right lower extremity with inflammation; E03.9 Hypothyroidism, unspecified; Z79.4 Long term (current) use of insulin

== ENCOUNTER 2016-09-05 15:49 | Inpatient (IN) | payer MEDICARE ==
[2016-09-05 16:41] LABS: Mean Cell Volume 105.9 fl (78-100); Mean Corpuscular Hemoglobin 29.9 pg (27-31); Mean Corpuscular Hgb Conc 28.3 g/dl (32-36); Mean Platelet Volume 11.7 fl (6.0-9.5); Neutrophil # 5.7 K/mm3 (1.3-6.0); Neutrophil % 81.5 % (42-75.0); Platelet Count 184 K/mm3 (150-450); Red Blood Count 1.87 M/mm3 (4.2-5.4); Red Cell Distribution Width 17.6 % (11.5-14.0)
[2016-09-05 16:47] LABS: Hematocrit 19.8 % (37.0-47.0); Hemoglobin 5.6 gm/dL (12.5-16.0)
--- OUTSIDE RECORDS SUMMARY | 2016-09-05 16:54 | XMS REPORT | Continuity of Care Document ---
:1945 Author Organization [facility] ([facility]) [place] [address] Phone [phone] Care Team Providers Name Role Phone Abe Metz Primary Care Provider [phone] Source Comments This disclosure is being made pursuant to the Care Everywhere program, applicable federal and state laws, and may not contain all informaitonavailable regarding this patient.[facility] ([facility]) Active Allergies and Adverse Reactions Allergen Noted Date Severity Reactions Comments Cat Dander 06/20/2015 OTHER Fluticasone Propionate 06/20/2015 Unknown Levofloxacin 06/20/2015 Unknown Meperidine Hcl 06/20/2015 Unknown Metoclopramide Hcl 06/20/2015 Unknown Nsaids (Non-Steroidal Anti-Inflammatory Drug) 06/20/2015 Unknown Procaine Hcl 06/20/2015 Unknown Salmeterol Xinafoate 06/20/2015 Unknown Tramadol 06/20/2015 Unknown Vicodin Tuss 07/11/2015 Pruritus Current Medications Prescription Sig. Disp. Refills Start Date End Date Status zinc oxide 20 % Apply topically as 28.35 g 11 06/21/2015 Active ointment needed. insulin nph-regular Inject 45 Units Active (HumuLIN 70/30) 100 subcutaneously 2 unit/mL injection times daily before vial meals. INSULIN ASPART Inject 60 Units Active (NOVOLOG SC) subcutaneously every morning before breakfast. atorvastatin 40 mg Take 40 mg by mouth Active tablet daily. sucralfate 1000 mg Take 1,000 mg by Active tablet mouth 3 times daily before meals. prazosin 5 mg capsule Take 5 mg by mouth Active Every morning. potassium chloride 10 Take 20 mEq by mouth Active mEq XR tablet 3 times daily. metoPROLol tartrate Take 75 mg by mouth 2 Active 50 mg tablet times daily. losartan 100 mg Take 100 mg by mouth Active tablet daily. levothyroxine PO Take 0.025 mg by Active mouth Every morning. furosemide 40 mg Take 40 mg by mouth 2 Active tablet times daily. famotidine 20 mg Take 20 mg by mouth 2 Active tablet times daily. clopidogrel 75 mg Take 75 mg by mouth Active tablet daily. P-EPHED HCL/CARBINOX Take 4 mg by mouth 3 Active MAL (CARBINOXAMINE times daily. PO) tamsulosin 0.4 mg Take 0.4 mg by mouth Active capsule at bedtime. hydrophillic Apply topically as Active (AQUAPHILLIC) needed. ointment lidocaine HCl 4 % Active crea SUPPLY BD UF short Inject subcutaneously Active insulin syringe w/ as needed. half unit markings 0.3 mL 31 g x 5/16" carbinoxamine maleate Take 4 mg by mouth 3 Active 4 mg tablet times daily as needed. SUPPLY lancets Take as directed as Active needed. iron polysaccharide Take 150 mg by mouth Active complex 150 mg 3 times daily. capsule albuterol-ipratropium Use 3 mL by Active 2.5-0.5 mg/3 mL inhalation every 6 inhalation solution hours as needed. metolazone 5 mg Take 5 mg by mouth Active tablet daily. MULTIVITAMIN WITH Take 1 tablet by Active IRON PO mouth daily. NEBULIZER ACCESSORIES Active (NEBULIZER NA ) oxygen O-15 (O-15 O2) Use by inhalation Active once 2L . cholestyramine-aspart Take 4 g by mouth 2 Active rl 4 gram packet times daily. acetaminophen 500 mg Take 500 mg by mouth Active tablet every 6 hours as needed. VENTOLIN HFA 90 Use 2 Puffs by 0 06/10/2015 Active mcg/Actuation inhaler inhalation as needed. carbinoxamine maleate Take 1 tablet by 06/22/2015 Active 4 mg tablet mouth 3 times daily. BLOOD-GLUCOSE METER Active ([employer] ULTRA SYSTEM KIT NA ) SUPPLY ONE TOUCH daily. Active VERIO test strips polyethylene Take as directed. 4000 mL 0 07/11/2015 Active glycol-electrolyte (NULYTELY) suspension Active Problems Problem Noted Date Congestive heart disease 06/21/2015 Coronary artery disease 06/21/2015 Type 2 diabetes mellitus 06/21/2015 Rectovaginal fistula 06/21/2015 Spinal stenosis 06/21/2015 Fibromyalgia 06/21/2015 Osteoporosis 06/21/2015 Gout 06/21/2015 GERD (gastroesophageal reflux disease) 06/21/2015 Parkinson disease 06/21/2015 COPD (chronic obstructive pulmonary disease) 06/21/2015 Asthma 06/21/2015 Emphysema lung 06/21/2015 Degenerative lumbar disc 06/21/2015 Social History Tobacco Use Types Packs/Day Years Used Date Former Smoker Cigarettes 0.5 45 Quit: 06/15/2000 Smokeless Tobacco: Never Used Tobacco Cessation:Counseling Given: Yes Comments: Alcohol Use Drinks/Week oz/Week Comments No 0 Standard drinks or equivalent 0.0 Last Filed Vital Signs Vital Sign Reading Time Taken Blood Pressure 122/65 07/11/2015 12:49 PM VACUUM EVAPORATION OPERATOR Pulse 87 07/11/2015 12:49 PM VACUUM EVAPORATION OPERATOR Temperature 36.1 C (97 F) 07/11/2015 12:49 PM VACUUM EVAPORATION OPERATOR Respiratory Rate 20 06/20/2015 10:17 PM VACUUM EVAPORATION OPERATOR Height 1.575 m (5' 2") 07/11/2015 12:49 PM VACUUM EVAPORATION OPERATOR Weight 131.6 kg (290 lb 2 oz) 07/11/2015 12:49 PM VACUUM EVAPORATION OPERATOR Body Mass Index 53.05 07/11/2015 12:49 PM VACUUM EVAPORATION OPERATOR Oxygen Saturation 95% 06/20/2015 10:17 PM VACUUM EVAPORATION OPERATOR Plan of Care Health Maintenance Due Date Last Done Comments HCV Screening 1945 Hepatitis B Vaccine (1 of 3 - Primary Series) 1945 Tdap Vaccine 1957 DIABETIC: Cholesterol 1964 Diabetic: Hdl 1964 DIABETIC: Hemoglobin A1C 1964 Diabetic: Ldl 1964 DIABETIC: Microalbumin 1964 DIABETIC: Triglycerides 1964 Td Vaccine 1963 Mammogram 1986 Colonoscopy 06/22/1996 Zoster Vaccine 2006 Osteoporosis Screening (DXA Bone Density) 2011 Pneumococcal Vaccine (1 of 2 - PCV13) 2011 DIABETIC: Foot Exam 06/21/2015 DIABETIC: Retinal Eye Exam 06/21/2015 Influenza Vaccine: Seasonal (#1) 12/26/2015 Results from Last 3 Months Not on file
[2016-09-05 16:59] LABS: Prothrombin Time (Patient) 11.9 Seconds (9.4-11.4)
[2016-09-05 17:00] LABS: Albumin * 2.6 gm/dl (3.4-5.0); Anion Gap 12.4 mmol/L (6.8-13.8); BUN/Creatinine Ratio 36.3 (9.0-21.6); Bilirubin, Total 0.1 mg/dL (0.0-1.1); Ca. Corrected For Albumin 9.2 mg/dL (8.4-10.2); Calcium * 8.4 mg/dL (7.9-10.9); Carbon Dioxide 30.9 mmol/L (24-32.6); INR 1.14 INR (0.90-1.10); Partial Thrombolplastin Time 19.2 Seconds (24-32); Potassium 4.3 mmol/L (3.4-4.6); Total Protein 5.2 gm/dL (6.2-8.2); Troponin I 0.019 ng/ml (0.00-0.10)
[2016-09-05] MEDS ORDERED: PANTOPRAZOLE SODIUM 40 MG in NORMAL SALINE 100 ML IV ONE (17:22)
--- OUTSIDE RECORDS SUMMARY | 2016-09-05 17:39 | XMS REPORT | Continuity of Care Document ---
:1945 Author Organization [facility] ([facility]) Address [place] [address] Phone [phone] Care Team Providers Name Role Phone Abe Metz Primary Care Provider [phone] Source Comments This disclosure is being made pursuant to the Care Everywhere program, applicable federal and state laws, and may not contain all informaitonavailable regarding this patient.[facility] ([facility]) Active Allergies and Adverse Reactions Allergen [...] mouth 3 times daily. BLOOD-GLUCOSE METER Active (Zuldi ULTRA SYSTEM KIT NA ) SUPPLY ONE [...] Taken Blood Pressure 122/65 07/11/2015 12:49 PM WEAVER NEEDLE LOOM Pulse 87 07/11/2015 12:49 PM WEAVER NEEDLE LOOM Temperature 36.1 C (97 F) 07/11/2015 12:49 PM WEAVER NEEDLE LOOM Respiratory Rate 20 06/20/2015 10:17 PM WEAVER NEEDLE LOOM Height 1.575 m (5' 2") 07/11/2015 12:49 PM WEAVER NEEDLE LOOM Weight 131.6 kg (290 lb 2 oz) 07/11/2015 12:49 PM WEAVER NEEDLE LOOM Body Mass Index 53.05 07/11/2015 12:49 PM WEAVER NEEDLE LOOM Oxygen Saturation 95% 06/20/2015 10:17 PM WEAVER NEEDLE LOOM Plan of Care Health Maintenance Due Date [...]
--- NOTE | 2016-09-05 17:46 | ERNOTE ---
Syncope ER HPI Stated Complaint: SYNCOPE Time Seen by Provider: 09/05/16 16:08 Source: patient Exam Limitations: no limitations Immunizations: IMMUNIZATION HX Immunizations Up to Date Yes History of Influenza Vaccine Yes Hx Pneumococcal Vaccination More Information Required Allergies/Adverse Reactions: Allergies cat dander Allergy (Verified 09/05/16 15:59) fluticasone propionate [From Advair Diskus] Allergy (Verified 09/05/16 15:59) levofloxacin [From Levaquin] Allergy (Verified 09/05/16 15:59) meperidine HCl [From Demerol] Allergy (Verified 09/05/16 15:59) metoclopramide HCl [From Reglan] Allergy (Verified 09/05/16 15:59) NSAIDS (Non-Steroidal Anti-Inflamma Allergy (Verified 09/05/16 15:59) procaine HCl [From Novocain] Allergy (Verified 09/05/16 15:59) salmeterol xinafoate [From Advair Diskus] Allergy (Verified 09/05/16 15:59) tramadol Allergy (Verified 09/05/16 15:59) Home Medications: HOME MEDICATIONS Albuterol Sulfate [Ventolin HFA] 2 puff IH Q4H PRN 03/19/16 [Last Taken Unknown] Albuterol Sulfate/Ipratropium [Duoneb 2.5-0.5MG/3ML Soln] 3 ml IH QID 03/19/16 [ Last Taken Unknown] Ammonium Lactate [Amlactin] 1 appl TP BID 03/19/16 [Last Taken Unknown] Atorvastatin Calcium 40 mg PO DAILY 03/19/16 [Last Taken Unknown] Carbinoxamine Maleate [Arbinoxa] 4 mg PO TID 03/19/16 [Last Taken Unknown] Clopidogrel Bisulfate [Plavix] 75 mg PO DAILY 03/19/16 [Last Taken Unknown] Famotidine 20 mg PO BID 03/19/16 [Last Taken Unknown] Furosemide [Lasix] 80 mg PO BID 03/19/16 [Last Taken Unknown] Hydrophilic Ointment [Aquaphilic Ointment] 1 appl TP BID 03/19/16 [Last Taken Unknown] Levothyroxine Sodium [Synthroid] 25 mcg PO DAILY 03/19/16 [Last Taken Unknown] Losartan Potassium [Cozaar] 100 mg PO DAILY 03/19/16 [Last Taken Unknown] Metoclopramide HCl [Reglan] 5 mg PO ACHS 03/19/16 [Last Taken Unknown] Metoprolol Tartrate 100 mg PO BID 03/19/16 [Last Taken Unknown] Multivitamin [One Daily Essential] 1 each PO DAILY 03/19/16 [Last Taken Unknown] Prazosin HCl [Minipress] 5 mg PO DAILY 03/19/16 [Last Taken Unknown] Sucralfate [Carafate] 1 gm PO QID 03/19/16 [Last Taken Unknown] Trolamine Salicylate [Aspercreme] 1 appl TP QID PRN 03/19/16 [Last Taken Unknown ] Acarbose [Precose] 25 mg PO TID 06/15/16 [Last Taken Unknown] Iron Aspgly,Ps/C/Succinic Acid [Ferrex 150 Plus Capsule] 1 each PO TID 06/15/16 [Last Taken Unknown] Januvia 50 mg PO DAILY 06/15/16 [Last Taken Unknown] Pioglitazone HCl [Actos] 15 mg PO DAILY 06/15/16 [Last Taken Unknown] Topiramate [Topamax] 25 mg PO BID 06/15/16 [Last Taken Unknown] Acetaminophen [Tylenol] 650 mg PO QID PRN #1 tab 06/19/16 [Last Taken Unknown] Albuterol Sulfate [Albuterol Sulfate 2.5 MG/0.5ML] 2.5 mg IH Q4H PRN #0 vial.neb 06/19/16 [Last Taken Unknown] Amiodarone HCl [Cordarone] 400 mg PO BID #60 tablet 06/19/16 [Last Taken Unknown ] Apixaban [Eliquis] 5 mg PO BID #60 tablet 06/19/16 [Last Taken Unknown] Insulin NPH Hum/Reg Insulin Hm [Humulin 70-30] 20 unit SC AC 30 Days 06/19/16 [ Last Taken Unknown] Insulin Regular, Human [Humulin R] 25 units SC DAILY@1130 30 Days 06/19/16 [ Last Taken Unknown] Insulin Regular, Human [Humulin R] 60 units SC DAILY@0700 30 Days 06/19/16 [ Last Taken Unknown] Multivitamins [Multivitamin Jaylon] 1 cap PO DAILY capsule 06/19/16 [Last Taken Unknown] Aspirin [Aspirin Chewable] 81 mg PO DAILY 09/05/16 [Last Taken Unknown] Carbinoxamine Maleate [Arbinoxa] 4 mg PO TID 09/05/16 [Last Taken Unknown] Ferrous Sulfate 325 mg PO DAILY 09/05/16 [Last Taken Unknown] - History of Present Illness Narrative: Patient states that she had another syncopal episode. She admits to having numerous syncopal episodes in the past. She further states that usually when she has syncopal episodes her hemoglobin has fallen considerably. She admits to having black stools. However she feels alright as long as she is laying flat. Prior Episodes: Present: recent history Symptoms prior to episode: Present: light headedness Activity at time of episode: Present: standing Character of event: Present: brief (seconds) Location of Injury: Present: none Current Symptoms: Present: back to normal Prior Treament: Reports: treated by physician Review of Systems - Review of Systems Constitutional: Present: See HPI, weakness EYE: Present: no symptoms reported ENT: Present: no symptoms reported Respiratory: Present: no symptoms reported Cardiology: Present: no symptoms reported Gastrointestinal/Abdominal: Present: other - black stools Genitourinary: Present: no symptoms reported Musculoskeletal: Present: no symptoms reported Skin: Present: no symptoms reported Neurological: Present: no symptoms reported Endocrine: Present: no symptoms reported Hematologic/Lymphatic: Present: no symptoms reported Psych: Present: no symptoms reported - Patient's Past Medical History Patient History - Medical: Anemia, Anesthesia Reaction, Anxiety, Arthritis, Cataracts, Diabetes Type 2, Diabetes Type 2 Insulin Dependent, Fibromyalgia, GERD, Hypothyroidism, Migraines, Obesity, Osteoarthritis, Osteoporosis, Renal Disease, UTI'S, Other - GI bleed Patient History - Cardiac/Respiratory: Coronary Heart Disease, CHF, COPD, Home O2 Use Patient History - Cancer: No Hx of Cancer Patient History - Surgical Procedures: Appendectomy, Cholecystectomy, Coronary Bypass Surgery, D & C, EGD, Hysterectomy, Total Knee Replacement, Other Patient History - Other: None - Family History Mother Family History - Medical: , Diabetes Type 2 Insulin Dependent Family History - Cardiac/Respiratory: Arrhythmias Father Family History - Medical: , Diabetes Type 2 Insulin Dependent Family History - Cardiac/Respiratory: No pertinent hx Grandmother-Paternal Family History - Medical: Grandfather-Paternal Family History - Medical: , No pertinent hx Family History - Cardiac/Respiratory: No pertinent hx Grandfather-Maternal Family History - Medical: , No pertinent hx Family History - Cardiac/Respiratory: CHF, Myocardial Infarction Grandmother-Maternal Family History - Medical: , No pertinent hx Family History - Cardiac/Respiratory: Myocardial Infarction Brother Family History - Medical: , No pertinent hx Family History - Cardiac/Respiratory: No pertinent hx Sister Family History - Medical: Family History - Cardiac/Respiratory: No pertinent hx - Social History Living Situations: home Abuse History: No History of abuse Psych History: Hx of Anxiety Alcohol Use: none Drug Use: none - Immunizations Immunizations Up to Date: Yes Hx Pneumococcal Vaccination: More Information Required to Determine History of Influenza Vaccine: Yes Physical Exam - Physical Exam General Appearance: Present: wd/wn, alert, mild distress Eye Exam: Normal inspection: bilateral, PERRL: bilateral Ears, Nose, Throat: Present: normal ENT inspection, H, normal pharynx Neck: Present: normal inspection, nontender Respiratory: Present: no respiratory distress, normal breath sounds, no accessory muscle use, chest nontender, lungs clear Cardiovascular/Chest: Present: regular rate, rhythm, no murmur, normal peripheral pulses Gastrointestinal/Abdominal: Present: normal bowel sounds, nontender, nondistended, soft, no organomegaly Rectal Exam: Present: black stool Back Exam: Present: normal inspection, normal range of motion Extremity Exam: Present: normal inspection, non-tender, no edema, normal range of motion Neurological Exam: Present: alert, oriented, normal mood/affect Skin Exam: Present: normal color, warm/dry Lymphatic Exam: Present: no adenopathy ED Progress - Results and Orders Patient's Lab Results:: I have reviewed the patient's lab results. - Vital Signs Patient's Vital Signs:: I have reviewed the patient's vital signs. Vital Signs: Vital Signs 09/05/16 09/05/16 09/05/16 15:53 16:13 16:57 Temperature 35.7 C L Pulse Rate 62 80 68 Respiratory 21 H 16 17 Rate Blood Pressure 161/68 O2 Sat by Pulse 92 92 98 Oximetry - EKG EKG: other - sinus bradycardia EKG read: Reviewed by me - Progress/Reassessment Chief Complaint: Syncopal Episode Progress:: Improved Plan - Plan Plan: Patient has had a considerable drop in her hemoglobin once again. As she related to her past experience that when her hemoglobin gets this low that she is frequently passing out. As the patient has had upper GI bleeding in the past I will start her on Protonix here in the ER, and I have cross matched 2 units of packed red blood cells for her to be given. Departure Clinical Impression: Gastrointestinal hemorrhage, Syncope and collapse Anemia Qualifiers: Anemia type: other cause Other causes of anemia: other cause, not classified Qualified Code(s): D64.89 - Other specified anemias - Departure Disposition: [facility] Condition: Fair - Critical Care Total Time (mins): 35 Critical Care: Patient received some critical interventions while she was here in the emergency department. I suspect the patient does indeed have an upper GI bleed as the source of her anemia the patient was given IV Protonix, she was also type and cross for 2 units of packed red blood cells which I believe will help stabilize her blood pressure.
[2016-09-05] MEDS ORDERED: ACETAMINOPHEN 325 MG SUPP.RECT RC PRN (19:38)
[2016-09-05] MEDS ORDERED: NORMAL SALINE 1,000 ML IV PRN (19:45)
[2016-09-05] MEDS: INSULIN LISPRO 100 UNITS/ML VIAL SC SCH (20:05)
[2016-09-05] MEDS ORDERED: FUROSEMIDE 10 MG/ML VIAL IV ONE (21:44)
[2016-09-05] MEDS ORDERED: ALBUTEROL SULFATE 2.5 MG/0.5 ML VIAL.NEB IH PRN (22:28)
[2016-09-05] MEDS: ALBUTEROL SULFATE/IPRATROPIUM 3 ML NEBU IH SCH (23:34)
--- NOTE | 2016-09-05 23:43 | HP ---
<Jodi Ochoa - Last Filed: 09/06/16 00:00> Chief Complaint - Chief Complaint Date of Service: 09/05/16 Time of Service: 22:10 Chief Complaint: Syncope History of Present Illness: 70 years old female adm to the hospital from the ER with reports of syncope episodes while at home. pt stated she kept falling and whenevre she sit or stand get get dizzy and lightheaded. She continue to have recurrent s/s throughout the day, so her family called EMS and brought her to the hospital. PMH significant for CHF, hypertension, recurrent UTI ( colovaginal fistual), sleep apnea ( refused to use cpap), COPD ( 2L oxygen while at home), diabetes, anemia, RLS, sleep apnea and HDL. In ER occult blood ( +), pt denies Melana, hematemesis and stated she continue to use Plavix and aspirin. She have several areas of bruising on abdomen, thigh and buttocks. In ER on adm hgb 5.6, she is been transfused 2UPRBC, IV Lasix between transfusion. Pt was seen in [address] Singh had EGD---> peptic ulcer disease. Plan of care discussed with Pt she verbalized understanding and agree. - Patient's Past Medical History Patient History - Medical: Anemia, Anesthesia Reaction, Anxiety, Arthritis, Cataracts, Diabetes Type 2, Diabetes Type 2 Insulin Dependent, Fibromyalgia, GERD, Hypothyroidism, Migraines, Obesity, Osteoarthritis, Osteoporosis, Renal Disease, UTI'S, Other Patient History - Cardiac/Respiratory: Coronary Heart Disease, CHF, COPD, Home O2 Use Patient History - Cancer: No Hx of Cancer Patient History - Surgical Procedures: Appendectomy, Cholecystectomy, Coronary Bypass Surgery, D & C, EGD, Hysterectomy, Total Knee Replacement, Other Patient History - Other: None - Family History Mother Family History - Medical: , Diabetes Type 2 Insulin Dependent Family History - Cardiac/Respiratory: Arrhythmias Family History - Cancer: No pertinent family hx Father Family History - Medical: , Diabetes Type 2 Insulin Dependent Family History - Cardiac/Respiratory: No pertinent hx Family History - Cancer: No pertinent family hx Grandmother-Paternal Family History - Medical: Family History - Cardiac/Respiratory: History Unknown Family History - Cancer: History Unknown Grandfather-Paternal Family History - Medical: , No pertinent hx Family History - Cardiac/Respiratory: No pertinent hx Family History - Cancer: No pertinent family hx Grandfather-Maternal Family History - Medical: , No pertinent hx Family History - Cardiac/Respiratory: CHF, Myocardial Infarction Family History - Cancer: No pertinent family hx Grandmother-Maternal Family History - Medical: , No pertinent hx Family History - Cardiac/Respiratory: Myocardial Infarction Family History - Cancer: No pertinent family hx Brother Family History - Medical: , No pertinent hx Family History - Cardiac/Respiratory: No pertinent hx Family History - Cancer: No pertinent family hx Sister Family History - Medical: Family History - Cardiac/Respiratory: No pertinent hx Family History - Cancer: No pertinent family hx - Social History Living Situations: other Abuse History: No History of abuse Psych History: Hx of Anxiety Smoking Status: Former smoker Have you smoked in the past 12 months: No Patient requests Smoking Cessation Consult: No Initiate information on Smoking Cessation: No Alcohol Use: none Drug Use: none - Immunizations Immunizations Up to Date: Yes Hx Pneumococcal Vaccination: More Information Required to Determine History of Influenza Vaccine: Yes Review Of Systems (GEN) - Review of Systems Generalized/Overall Review: Present: Weakness EENTM: Present: No Symptoms Reported Respiratory: Present: No Symptoms Reported Cardiac: Present: No Symptoms Reported Abdominal: Present: No Symptoms Reported Genitourinary: Present: No Symptoms Reported Musculoskeletal: Present: No Symptoms Reported Neurological: Present: Tremors, Other - RLS Skin: Present: Bruising, Other - pale Endocrine: Present: No Symptoms Reported Immunizations: IMMUNIZATION HX Immunizations Up to Date Yes History of Influenza Vaccine Yes Hx Pneumococcal Vaccination More Information Required Allergies/Adverse Reactions: Allergies Allergy/AdvReac Type Severity Reaction Status Date / Time cat dander Allergy Verified 09/05/16 15:59 fluticasone propionate Allergy Verified 09/05/16 15:59 [From Advair Diskus] levofloxacin [From Levaquin] Allergy Verified 09/05/16 15:59 meperidine HCl [From Demerol] Allergy Verified 09/05/16 15:59 metoclopramide HCl Allergy Verified 09/05/16 15:59 [From Reglan] NSAIDS (Non-Steroidal Allergy Verified 09/05/16 15:59 Anti-Inflamma procaine HCl [From Novocain] Allergy Verified 09/05/16 15:59 salmeterol xinafoate Allergy Verified 09/05/16 15:59 [From Advair Diskus] tramadol Allergy Verified 09/05/16 15:59 Home Medications: HOME MEDICATIONS Albuterol Sulfate [Ventolin HFA] 2 puff IH Q4H PRN 03/19/16 [Last Taken Unknown] Albuterol Sulfate/Ipratropium [Duoneb 2.5-0.5MG/3ML Soln] 3 ml IH QID 03/19/16 [ Last Taken Unknown] Ammonium Lactate [Amlactin] 1 appl TP BID 03/19/16 [Last Taken Unknown] Atorvastatin Calcium 40 mg PO DAILY 03/19/16 [Last Taken Unknown] Carbinoxamine Maleate [Arbinoxa] 4 mg PO TID 03/19/16 [Last Taken Unknown] Clopidogrel Bisulfate [Plavix] 75 mg PO DAILY 03/19/16 [Last Taken Unknown] Famotidine 20 mg PO BID 03/19/16 [Last Taken Unknown] Furosemide [Lasix] 80 mg PO BID 03/19/16 [Last Taken Unknown] Hydrophilic Ointment [Aquaphilic Ointment] 1 appl TP BID 03/19/16 [Last Taken Unknown] Levothyroxine Sodium [Synthroid] 25 mcg PO DAILY 03/19/16 [Last Taken Unknown] Losartan Potassium [Cozaar] 100 mg PO DAILY 03/19/16 [Last Taken Unknown] Metoclopramide HCl [Reglan] 5 mg PO ACHS 03/19/16 [Last Taken Unknown] Metoprolol Tartrate 100 mg PO BID 03/19/16 [Last Taken Unknown] Multivitamin [One Daily Essential] 1 each PO DAILY 03/19/16 [Last Taken Unknown] Prazosin HCl [Minipress] 5 mg PO DAILY 03/19/16 [Last Taken Unknown] Sucralfate [Carafate] 1 gm PO QID 03/19/16 [Last Taken Unknown] Trolamine Salicylate [Aspercreme] 1 appl TP QID PRN 03/19/16 [Last Taken Unknown ] Acarbose [Precose] 25 mg PO TID 06/15/16 [Last Taken Unknown] Iron Aspgly,Ps/C/Succinic Acid [Ferrex 150 Plus Capsule] 1 each PO TID 06/15/16 [Last Taken Unknown] Januvia 50 mg PO DAILY 06/15/16 [Last Taken Unknown] Pioglitazone HCl [Actos] 15 mg PO DAILY 06/15/16 [Last Taken Unknown] Topiramate [Topamax] 25 mg PO BID 06/15/16 [Last Taken Unknown] Acetaminophen [Tylenol] 650 mg PO QID PRN #1 tab 06/19/16 [Last Taken Unknown] Albuterol Sulfate [Albuterol Sulfate 2.5 MG/0.5ML] 2.5 mg IH Q4H PRN #0 vial.neb 06/19/16 [Last Taken Unknown] Amiodarone HCl [Cordarone] 400 mg PO BID #60 tablet 06/19/16 [Last Taken Unknown ] Apixaban [Eliquis] 5 mg PO BID #60 tablet 06/19/16 [Last Taken Unknown] Insulin NPH Hum/Reg Insulin Hm [Humulin 70-30] 20 unit SC AC 30 Days 06/19/16 [ Last Taken Unknown] Insulin Regular, Human [Humulin R] 25 units SC DAILY@1130 30 Days 06/19/16 [ Last Taken Unknown] Insulin Regular, Human [Humulin R] 60 units SC DAILY@0700 30 Days 06/19/16 [ Last Taken Unknown] Multivitamins [Multivitamin Jaylon] 1 cap PO DAILY capsule 06/19/16 [Last Taken Unknown] Aspirin [Aspirin Chewable] 81 mg PO DAILY 09/05/16 [Last Taken Unknown] Carbinoxamine Maleate [Arbinoxa] 4 mg PO TID 09/05/16 [Last Taken Unknown] Ferrous Sulfate 325 mg PO DAILY 09/05/16 [Last Taken Unknown] Exam - Exam Vital Signs: Vital Signs - Last Taken Temp 36.7 C 09/05/16 22:01 Pulse 68 09/05/16 22:25 Resp 22 H 09/05/16 22:01 BP 111/87 09/05/16 22:25 Pulse Ox 100 09/05/16 22:01 Constitutional: Present: Alert, Oriented x3, Cooperative, Well developed, Well nourished, No distress, Obese ENT Exam: Present: moist mucous membranes Eye Exam: bilateral eye: PERRL Neck: Present: full range of motion Back Exam: Present: normal inspection Respiratory: Present: chest non-tender, normal breath sounds, no respiratory distress, no accessory muscle use, decreased breath sounds Cardiovascular/Chest: Present: normal peripheral pulses, regular rate, rhythm, no chest tenderness, no edema, no JVD Peripheral Pulses: dorsalis-pedis (R): 2+, dorsalis-pedis (L): 2+ Abdomen: Present: Normal bowel sounds, soft, nontender, nondistended, no rebound tenderness Extremity: Present: normal range of motion, non-tender, normal inspection, no pedal edema, no calf tenderness Skin Exam: Present: warm/dry, other - pale Neurologic: Present: oriented x 3 Appearance: Present: appropriate appearance Thoughts: Present: normal thought pattern Diagnostic Studies: Abnormal Lab Results 09/05/16 Range/Units Unknown Stool Occult Blood Positive H Laboratory Results WBC 7.0 K/mm3 (4.0-10.5) 09/05/16 16:35 RBC 1.87 M/mm3 (4.2-5.4) L 09/05/16 16:35 Hgb 5.6 gm/dL (12.5-16.0) L* D 09/05/16 16:35 Hct 19.8 % (37.0-47.0) L* D 09/05/16 16:35 MCV 105.9 fl (78-100) H 09/05/16 16:35 MCH 29.9 pg (27-31) 09/05/16 16:35 MCHC 28.3 g/dl (32-36) L 09/05/16 16:35 RDW 17.6 % (11.5-14.0) H 09/05/16 16:35 Plt Count 184 K/mm3 (150-450) 09/05/16 16:35 MPV 11.7 fl (6.0-9.5) H 09/05/16 16:35 Immature Gran % (Auto) 1.40 % (0.001-0.429) H 09/05/16 16:35 Immature Gran # (Auto) 0.10 K/mm3 (0.000-0.0310) H 09/05/16 16:35 Neutrophils % 81.5 % (42-75.0) H 09/05/16 16:35 Lymphocytes % 8.5 % (20-51) L 09/05/16 16:35 Monocytes % 8.6 % (0.0-9) 09/05/16 16:35 Eosinophils % 0.0 % (0.0-3.0) 09/05/16 16:35 Basophils % 0.0 % (0.0-1.0) 09/05/16 16:35 Nucleated RBC % 0.0 k/mm3 (0-1) 09/05/16 16:35 Neutrophils # 5.7 K/mm3 (1.3-6.0) 09/05/16 16:35 Lymphocytes # 0.6 k/mm3 (1.5-3.5) L 09/05/16 16:35 Monocytes # 0.6 k/mm3 (0.0-1.0) 09/05/16 16:35 Eosinophils # 0.0 k/mm3 (0.0-0.7) 09/05/16 16:35 Absolute Basophils 0.0 k/mm3 (0.0-0.1) 09/05/16 16:35 PT 11.9 Seconds (9.4-11.4) H 09/05/16 16:35 INR (Anticoag Therapy) 1.14 INR (0.90-1.10) H 09/05/16 16:35 PTT (Norton) 19.2 Seconds (24-32) L 09/05/16 16:35 Sodium 138 mmol/L (132-142) 09/05/16 16:35 Plasma Sodium 141 mmol/L (130-142) 09/05/16 16:35 Potassium 4.3 mmol/L (3.4-4.6) D 09/05/16 16:35 Chloride 99 mmol/L (97-106) 09/05/16 16:35 Carbon Dioxide 30.9 mmol/L (24-32.6) 09/05/16 16:35 Anion Gap 12.4 mmol/L (6.8-13.8) 09/05/16 16:35 BUN 73 mg/dL (3-23) H D 09/05/16 16:35 Creatinine 2.01 mg/dL (0.4-1.4) H D 09/05/16 16:35 Est GFR (Non-Af Amer) 26 mL/min (60-130) L D 09/05/16 16:35 BUN/Creatinine Ratio 36.3 (9.0-21.6) H 09/05/16 16:35 Random Glucose 311 mg/dL (70-110) H 09/05/16 16:35 Calcium 8.4 mg/dL (7.9-10.9) 09/05/16 16:35 Calcium Adj for Albumin 9.2 mg/dL (8.4-10.2) 09/05/16 16:35 Magnesium 2.0 mg/dL (1.2-2.8) 09/05/16 16:35 Total Bilirubin 0.1 mg/dL (0.0-1.1) 09/05/16 16:35 AST 14 U/L (0-48) 09/05/16 16:35 ALT 8 U/L (19-67) L 09/05/16 16:35 Alkaline Phosphatase 49 U/L (50-170) L 09/05/16 16:35 Troponin I 0.019 ng/ml (0.00-0.10) 09/05/16 16:35 Total Protein 5.2 gm/dL (6.2-8.2) L 09/05/16 16:35 Albumin 2.6 gm/dl (3.4-5.0) L 09/05/16 16:35 Stool Occult Blood Positive H 09/05/16 Unknown Blood Type O Positive 09/05/16 16:35 Antibody Screen Negative 09/05/16 16:35 Crossmatch See Detail 09/05/16 16:35 Assessment/Plan - Narrative Narrative: GI- Bleeding Occult blood test (+) Hold aspirin and plavix S/P 2 UPRBC Monitor H/H Q 6hr Dr Singh following Chronic Anemia secondary to GI bleeding Pt was taking oral iron at home, she denies active bleeding. She was taking aspirin, plavix and eliquis at home. Lowest Hgb have been since she was diagnoses with chronic anemia Will hold aspirin and plavix Protonix x1 now and then daily S/P 2UPRBc transfusion Monitor H/H Q6hrs Plan same as #1 Syncope- likely due to anemia and hypotensive Monitor vital signs Q shift and PRN, CHF- stable Continue with home dose of medications 06/18/16 Last Echo: LVEF normal, EF 55-60% Weight daily strict I/O BNP pending Code status: Full with restriction VTE ppx: SCD and ambulate GI ppx: protonix Anticipate discharge home and follow up with PCP 1-3 days Time 38 minutes and Previous records were reviewed. - Assessment/Plan (1) Anemia Problem: Acute QualifierTitle: Anemia type: other cause Other causes of anemia: other cause, not classified Qualified Code(s): D64.89 - Other specified anemias (2) Gastrointestinal hemorrhage Problem: Acute (3) Syncope and collapse Problem: Acute (4) CHF (congestive heart failure) Problem: Chronic QualifierTitle: Congestive heart failure type: diastolic <Abe Castro - Last Filed: 09/06/16 16:49> Immunizations: IMMUNIZATION HX Immunizations Up to Date Yes History of Influenza Vaccine Yes Hx Pneumococcal Vaccination More Information Required Exam - Exam Vital Signs: Vital Signs - Last Taken Temp 36.8 C 09/06/16 14:51 Pulse 30 L 09/06/16 14:51 Resp 18 09/06/16 14:51 BP 112/60 09/06/16 14:51 Pulse Ox 100 09/06/16 14:51 Diagnostic Studies: Abnormal Lab Results 09/05/16 09/06/16 09/06/16 Range/Units Unknown 05:39 05:39 RBC 2.88 L (4.2-5.4) M/mm3 Hgb 8.8 L (12.5-16.0) gm/dL Hct 28.4 L (37.0-47.0) % MCHC 31.0 L (32-36) g/dl RDW 18.2 H (11.5-14.0) % MPV 11.5 H (6.0-9.5) fl Immature Gran % (Auto) 1.90 H (0.001-0.429) % Immature Gran # (Auto) 0.20 H (0.000-0.0310) K/mm3 Lymphocytes % 14.1 L (20-51) % Monocytes % 14.7 H (0.0-9) % Neutrophils # 7.1 H (1.3-6.0) K/mm3 Monocytes # 1.5 H (0.0-1.0) k/mm3 B-Natriuretic Peptide 405 H (5-325) pg/mL Stool Occult Blood Positive H 09/06/16 09/06/16 Range/Units 10:50 16:28 RBC (4.2-5.4) M/mm3 Hgb 8.7 L 8.7 L (12.5-16.0) gm/dL Hct 28.1 L 28.5 L (37.0-47.0) % MCHC (32-36) g/dl RDW (11.5-14.0) % MPV (6.0-9.5) fl Immature Gran % (Auto) (0.001-0.429) % Immature Gran # (Auto) (0.000-0.0310) K/mm3 Lymphocytes % (20-51) % Monocytes % (0.0-9) % Neutrophils # (1.3-6.0) K/mm3 Monocytes # (0.0-1.0) k/mm3 B-Natriuretic Peptide (5-325) pg/mL Stool Occult Blood Laboratory Results WBC 10.3 K/mm3 (4.0-10.5) D 09/06/16 05:39 RBC 2.88 M/mm3 (4.2-5.4) L 09/06/16 05:39 Hgb 8.7 gm/dL (12.5-16.0) L 09/06/16 16:28 Hct 28.5 % (37.0-47.0) L 09/06/16 16:28 MCV 98.6 fl (78-100) 09/06/16 05:39 MCH 30.6 pg (27-31) 09/06/16 05:39 MCHC 31.0 g/dl (32-36) L 09/06/16 05:39 RDW 18.2 % (11.5-14.0) H 09/06/16 05:39 Plt Count 232 K/mm3 (150-450) 09/06/16 05:39 MPV 11.5 fl (6.0-9.5) H 09/06/16 05:39 Immature Gran % (Auto) 1.90 % (0.001-0.429) H 09/06/16 05:39 Immature Gran # (Auto) 0.20 K/mm3 (0.000-0.0310) H 09/06/16 05:39 Neutrophils % 68.8 % (42-75.0) 09/06/16 05:39 Lymphocytes % 14.1 % (20-51) L 09/06/16 05:39 Monocytes % 14.7 % (0.0-9) H 09/06/16 05:39 Eosinophils % 0.4 % (0.0-3.0) 09/06/16 05:39 Basophils % 0.1 % (0.0-1.0) 09/06/16 05:39 Nucleated RBC % 0.1 k/mm3 (0-1) 09/06/16 05:39 Neutrophils # 7.1 K/mm3 (1.3-6.0) H 09/06/16 05:39 Lymphocytes # 1.5 k/mm3 (1.5-3.5) 09/06/16 05:39 Monocytes # 1.5 k/mm3 (0.0-1.0) H 09/06/16 05:39 Eosinophils # 0.0 k/mm3 (0.0-0.7) 09/06/16 05:39 Absolute Basophils 0.0 k/mm3 (0.0-0.1) 09/06/16 05:39 PT 11.9 Seconds (9.4-11.4) H 09/05/16 16:35 INR (Anticoag Therapy) 1.14 INR (0.90-1.10) H 09/05/16 16:35 PTT (Norton) 19.2 Seconds (24-32) L 09/05/16 16:35 Sodium 138 mmol/L (132-142) 09/05/16 16:35 Plasma Sodium 141 mmol/L (130-142) 09/05/16 16:35 Potassium 4.3 mmol/L (3.4-4.6) D 09/05/16 16:35 Chloride 99 mmol/L (97-106) 09/05/16 16:35 Carbon Dioxide 30.9 mmol/L (24-32.6) 09/05/16 16:35 Anion Gap 12.4 mmol/L (6.8-13.8) 09/05/16 16:35 BUN 73 mg/dL (3-23) H D 09/05/16 16:35 Creatinine 2.01 mg/dL (0.4-1.4) H D 09/05/16 16:35 Est GFR (Non-Af Amer) 26 mL/min (60-130) L D 09/05/16 16:35 BUN/Creatinine Ratio 36.3 (9.0-21.6) H 09/05/16 16:35 Random Glucose 311 mg/dL (70-110) H 09/05/16 16:35 Calcium 8.4 mg/dL (7.9-10.9) 09/05/16 16:35 Calcium Adj for Albumin 9.2 mg/dL (8.4-10.2) 09/05/16 16:35 Magnesium 2.0 mg/dL (1.2-2.8) 09/05/16 16:35 Total Bilirubin 0.1 mg/dL (0.0-1.1) 09/05/16 16:35 AST 14 U/L (0-48) 09/05/16 16:35 ALT 8 U/L (19-67) L 09/05/16 16:35 Alkaline Phosphatase 49 U/L (50-170) L 09/05/16 16:35 Troponin I 0.019 ng/ml (0.00-0.10) 09/05/16 16:35 B-Natriuretic Peptide 405 pg/mL (5-325) H 09/06/16 05:39 Total Protein 5.2 gm/dL (6.2-8.2) L 09/05/16 16:35 Albumin 2.6 gm/dl (3.4-5.0) L 09/05/16 16:35 Stool Occult Blood Positive H 09/05/16 Unknown Blood Type O Positive 09/05/16 16:35 Antibody Screen Negative 09/05/16 16:35 Crossmatch See Detail 09/05/16 16:35 Assessment/Plan - Narrative Narrative: Record reviewed. Patient examined. Agree with plan. Dr. Singh's consultation note read. Poor candidate for anesthesia. Will monitor hgb following transfusion.
[2016-09-05] MEDS: METOPROLOL TARTRATE 100 MG TABLET PO SCH (23:47)
[2016-09-05] MEDS: SUCRALFATE 1 G TABLET PO SCH (23:47)
[2016-09-06 05:40] LABS: Hematocrit 28.4 % (37.0-47.0); Hemoglobin 8.8 gm/dL (12.5-16.0); Mean Cell Volume 98.6 fl (78-100); Mean Corpuscular Hemoglobin 30.6 pg (27-31); Mean Platelet Volume 11.5 fl (6.0-9.5); NRBC# 0.1 k/mm3 (0-1); Neutrophil # 7.1 K/mm3 (1.3-6.0); Neutrophil % 68.8 % (42-75.0); Platelet Count 232 K/mm3 (150-450); Red Blood Count 2.88 M/mm3 (4.2-5.4); Red Cell Distribution Width 18.2 % (11.5-14.0); White Blood Count 10.3 K/mm3 (4.0-10.5)
[2016-09-06] MEDS: ALBUTEROL SULFATE/IPRATROPIUM 3 ML NEBU IH SCH ×4 (06:05→18:25)
[2016-09-06] MEDS ORDERED: ALBUTEROL SULFATE 2.5 MG/3 ML VIAL.NEB IH PRN (06:13)
[2016-09-06] MEDS: LEVOTHYROXINE SODIUM 25 MCG TABLET PO SCH (06:42)
[2016-09-06] MEDS: INSULIN LISPRO 100 UNITS/ML VIAL SC SCH ×4 (06:47→20:36)
[2016-09-06] MEDS: PANTOPRAZOLE SODIUM 40 MG in NORMAL SALINE 100 ML IV SCH (07:24)
[2016-09-06] MEDS: METOCLOPRAMIDE HCL 5 MG TABLET PO SCH ×4 (07:24→20:32)
--- NOTE | 2016-09-06 07:43 | CONS ---
[facility] - General Date of Service: 09/06/16 Source: patient, RN/MD, RN notes reviewed, old records Exam Limitations: no limitations - History of Present Illness Initial Comments: She became increasingly weak with orthostatic symptoms. Found to be extremely anemic and admitted. Timing/Duration: getting worse Severity: moderate Modifying Factors - (Worsens): Reports: movement Modifying Factors - (Improves): Reports: rest Associated Symptoms: other - orthostatic Allergies/Adverse Reactions: Allergies cat dander Allergy (Verified 09/05/16 15:59) fluticasone propionate [From Advair Diskus] Allergy (Verified 09/05/16 15:59) levofloxacin [From Levaquin] Allergy (Verified 09/05/16 15:59) meperidine HCl [From Demerol] Allergy (Verified 09/05/16 15:59) metoclopramide HCl [From Reglan] Allergy (Verified 09/05/16 15:59) NSAIDS (Non-Steroidal Anti-Inflamma Allergy (Verified 09/05/16 15:59) procaine HCl [From Novocain] Allergy (Verified 09/05/16 15:59) salmeterol xinafoate [From Advair Diskus] Allergy (Verified 09/05/16 15:59) tramadol Allergy (Verified 09/05/16 15:59) Home Medications: Home Medications Medication Instructions Recorded Last Taken Albuterol Sulfate [Ventolin HFA] 2 puff IH Q4H PRN 03/19/16 Unknown Albuterol Sulfate/Ipratropium 3 ml IH QID 03/19/16 Unknown [Duoneb 2.5-0.5MG/3ML Soln] Ammonium Lactate [Amlactin] 1 appl TP BID 03/19/16 Unknown Atorvastatin Calcium 40 mg PO DAILY 03/19/16 Unknown Carbinoxamine Maleate [Arbinoxa] 4 mg PO TID 03/19/16 Unknown Clopidogrel Bisulfate [Plavix] 75 mg PO DAILY 03/19/16 Unknown Famotidine 20 mg PO BID 03/19/16 Unknown Furosemide [Lasix] 80 mg PO BID 03/19/16 Unknown Hydrophilic Ointment [Aquaphilic 1 appl TP BID 03/19/16 Unknown Ointment] Levothyroxine Sodium [Synthroid] 25 mcg PO DAILY 03/19/16 Unknown Losartan Potassium [Cozaar] 100 mg PO DAILY 03/19/16 Unknown Metoclopramide HCl [Reglan] 5 mg PO ACHS 03/19/16 Unknown Metoprolol Tartrate 100 mg PO BID 03/19/16 Unknown Multivitamin [One Daily Essential] 1 each PO DAILY 03/19/16 Unknown Prazosin HCl [Minipress] 5 mg PO DAILY 03/19/16 Unknown Sucralfate [Carafate] 1 gm PO QID 03/19/16 Unknown Trolamine Salicylate [Aspercreme] 1 appl TP QID PRN 03/19/16 Unknown Acarbose [Precose] 25 mg PO TID 06/15/16 Unknown Iron Aspgly,Ps/C/Succinic Acid 1 each PO TID 06/15/16 Unknown [Ferrex 150 Plus Capsule] Januvia 50 mg PO DAILY 06/15/16 Unknown Pioglitazone HCl [Actos] 15 mg PO DAILY 06/15/16 Unknown Topiramate [Topamax] 25 mg PO BID 06/15/16 Unknown Aspirin [Aspirin Chewable] 81 mg PO DAILY 09/05/16 Unknown Carbinoxamine Maleate [Arbinoxa] 4 mg PO TID 09/05/16 Unknown Ferrous Sulfate 325 mg PO DAILY 09/05/16 Unknown - Patient's Past Medical History Patient History - Medical: Anemia, Anesthesia Reaction, Anxiety, Arthritis, Cataracts, Diabetes Type 2, Diabetes Type 2 Insulin Dependent, Fibromyalgia, GERD, Hypothyroidism, Migraines, Obesity, Osteoarthritis, Osteoporosis, Renal Disease, UTI'S, Other - She is chronically anemic, with similar decline in 2012 prompting EGD Patient History - Cardiac/Respiratory: Coronary Heart Disease, CHF, COPD, Home O2 Use Patient History - Cancer: No Hx of Cancer Patient History - Surgical Procedures: Appendectomy, Cholecystectomy, Coronary Bypass Surgery, D & C, EGD, Hysterectomy, Total Knee Replacement, Other - She had profound desaturation with Propofol sedation for EGD in 2013 requiring nasal and oral airways and bag mask ventilation findings of gastroparesis, enterogastric bile reflux gastritis Patient History - Other: None LMP (females 10-50): unknown - Family History Mother Family History - Medical: , Diabetes Type 2 Insulin Dependent Family History - Cardiac/Respiratory: Arrhythmias Family History - Cancer: No pertinent family hx Father Family History - Medical: , Diabetes Type 2 Insulin Dependent Family History - Cardiac/Respiratory: No pertinent hx Family History - Cancer: No pertinent family hx Grandmother-Paternal Family History - Medical: Family History - Cardiac/Respiratory: History Unknown Family History - Cancer: History Unknown Grandfather-Paternal Family History - Medical: , No pertinent hx Family History - Cardiac/Respiratory: No pertinent hx Family History - Cancer: No pertinent family hx Grandfather-Maternal Family History - Medical: , No pertinent hx Family History - Cardiac/Respiratory: CHF, Myocardial Infarction Family History - Cancer: No pertinent family hx Grandmother-Maternal Family History - Medical: , No pertinent hx Family History - Cardiac/Respiratory: Myocardial Infarction Family History - Cancer: No pertinent family hx Brother Family History - Medical: , No pertinent hx Family History - Cardiac/Respiratory: No pertinent hx Family History - Cancer: No pertinent family hx Sister Family History - Medical: Family History - Cardiac/Respiratory: No pertinent hx Family History - Cancer: No pertinent family hx - Social History Living Situations: other Abuse History: No History of abuse Psych History: Hx of Anxiety Smoking Status: Former smoker Have you smoked in the past 12 months: No Patient requests Smoking Cessation Consult: No Initiate information on Smoking Cessation: No Alcohol Use: none Drug Use: none - Immunizations Immunizations Up to Date: Yes Hx Pneumococcal Vaccination: More Information Required to Determine History of Influenza Vaccine: Yes Procedures ANESTH INJECT-SPIN CANAL (02/22/06) ARTERIAL BLD GAS MEASURE (09/27/11) COLONOSCOPY (08/10/03) CONTRAST ARTERIOGRAM-LEG (05/05/04) DRAINAGE OF BLADDER WITH DRAINAGE DEVICE, VIA OPENING (03/19/16) ESOPHAGOGASTRODUODENOSCOPY [EGD] W/CLOSED BIOPSY (12/28/12) IMMOBILIZATION OF LEFT LOWER ARM USING SPLINT (01/14/16) INJECT STEROID (02/22/06) MAGNETIC RESONANCE IMAGING OF MUSCULOSKELETAL (05/05/04) MEASURE OF ARTERIAL SATURATION, PERIPHERAL, PERC APPROACH (03/12/15) OTHER SKIN & SUBQ I D (05/12/04) PACKED CELL TRANSFUSION (11/23/01) SPINAL CANAL INJECT NEC (02/22/06) TOTAL KNEE REPLACEMENT (06/27/05) Medications - Medications Current Medications: Current Medications Albuterol/Ipratropium (Duoneb 2.5-0.5mg/3ml Soln) 3 ml IH QIDRT [facility] Stop: 10/05/16 23:01 Last Admin: 09/06/16 06:05 Dose: 3 ml Pantoprazole Sodium 40 mg/ (Sodium Chloride) 100 mls @ 400 mls/hr IV Q24H [facility] Stop: 10/06/16 07:01 Last Admin: 09/06/16 07:24 Dose: 400 mls/hr Insulin Human Lispro (Humalog) 0 units SC [facility] PRN Reason: Protocol Stop: 10/05/16 21:01 Last Admin: 09/06/16 06:47 Dose: Not Given Levothyroxine Sodium (Synthroid) 25 mcg PO 0630 [facility] Stop: 10/06/16 06:31 Last Admin: 09/06/16 06:42 Dose: 25 mcg Metoclopramide HCl (Reglan) 5 mg PO ACHS [facility] Stop: 10/06/16 07:01 Last Admin: 09/06/16 07:24 Dose: 5 mg Metoprolol Tartrate (Lopressor) 100 mg PO BID [facility] Stop: 10/05/16 23:01 Last Admin: 09/05/16 23:47 Dose: Not Given Sucralfate (Carafate) 1 g PO QID [facility] Stop: 10/05/16 23:01 Last Admin: 09/05/16 23:47 Dose: Not Given Review of Systems - Review of Systems Generalized/Overall Review: Present: Weakness, Fatigue. Absent: Chills, Fever EENTM: Present: No Symptoms Reported Respiratory: Present: Other - dyspnea on exertion Cardiac: Present: Edema. Absent: Chest Pain Abdominal: Present: Constipation, Other - has not noted any blood in stool. She takes 2 Dulcolax po BID to move her bowels Musculoskeletal: Present: Back Pain, Other - pain in right foot Skin: Present: Other - pale Endocrine: Present: Other - craves ice Physical Examination - Exam Vital Signs: Vital Signs - Last Taken Temp 36.6 C 09/06/16 02:57 Pulse 72 09/06/16 06:13 Resp 20 09/06/16 06:13 BP 151/43 09/06/16 02:57 Pulse Ox 100 09/06/16 06:10 O2 Oxygen Delivery Method Nasal Cannula Constitutional: Present: Alert, Oriented x3, Cooperative, Mild distress, Other - intention tremor, Morbidly obese ENT Exam: Present: normal ENT inspection, hearing grossly normal Eye Exam: bilateral eye: normal inspection Neck: Present: full range of motion, normal inspection, other - short thick neck Breasts: Present: Exam deferred Respiratory: Present: no respiratory distress, no accessory muscle use Cardiovascular/Chest: Present: regular rate, rhythm Abdomen: Present: soft, nontender, no rebound tenderness, other - tympanitic epigastrium /Rectal: Present: Exam deferred Extremity: Present: normal range of motion, normal inspection, no calf tenderness, normal capillary refill Skin Exam: Present: other - pallor Neurologic: Present: utility division project manager II-XII nml as tested, alert, other - intention tremor Appearance: Present: appropriate appearance, appropriate insight Eye contact: Present: cooperative, good eye contact, normal speech Thoughts: Present: normal thought pattern - Results and Findings: Lab/Microbiology results last 24 hrs: Abnormal/Pending Laboratory Last 24 HRS 09/06/16 09/06/16 09/05/16 05:39 05:39 Unknown RBC 2.88 L Hgb 8.8 L Hct 28.4 L MCHC 31.0 L RDW 18.2 H MPV 11.5 H Immature Gran % (Auto) 1.90 H Immature Gran # (Auto) 0.20 H Lymphocytes % 14.1 L Monocytes % 14.7 H Neutrophils # 7.1 H Monocytes # 1.5 H B-Natriuretic Peptide 405 H Stool Occult Blood Positive H - Assessments/Findings (1) Anemia Diagnosis(s): Chronic with acute exacerbation, most likely from UGI bleeding (elevated BUN). Hgb appropriate response to transfusion. Problem: Acute Qualifiers: Anemia type: other cause Other causes of anemia: other cause, not classified Qualified Code(s): D64.89 - Other specified anemias (2) Gastrointestinal hemorrhage Diagnosis(s): History of gastropathy on prior EGD with similar presentation. With previous difficulty on sedation, would not repeat without general endotracheal anesthesia , and current situation would not warrant that. RECOMMEND: Treat as gastropathy. Reduce po medications to only those absolutely necessary/avoid mucosal irritant. Could check H Pylori Ag status to make sure that is not a contributing factor. Nuclear med gastric emptying study would confirm gastroparesis---however this could assumed from history without the test. Problem: Acute
[2016-09-06] MEDS ORDERED: TROLAMINE SALICYLATE 90 APPL TUBE TP PRN (07:58)
[2016-09-06] MEDS ORDERED: ALBUTEROL SULFATE 200 PUFF INHALER IH PRN (07:58)
[2016-09-06] MEDS ORDERED: ACETAMINOPHEN 325 MG TABLET PO PRN (07:58)
[2016-09-06] MEDS: HYDROPHILIC OINTMENT 454 APPL JAR TP SCH ×2 (08:43→20:31)
[2016-09-06] MEDS: AMIODARONE HCL 200 MG TABLET PO SCH ×2 (08:44→20:33)
[2016-09-06] MEDS: SUCRALFATE 1 G TABLET PO SCH ×4 (08:44→20:31)
[2016-09-06] MEDS: METOPROLOL TARTRATE 100 MG TABLET PO SCH ×2 (08:45→20:33)
[2016-09-06] MEDS: LOSARTAN POTASSIUM 50 MG TABLET PO SCH (08:45)
[2016-09-06] MEDS: FERROUS SULFATE 325 MG TABLET PO SCH (08:45)
[2016-09-06] MEDS: sitaGLIPtin PHOSPHATE 50 MG TABLET PO SCH (08:45)
[2016-09-06] MEDS: MULTIVITAMINS 1 CAP CAPSULE PO SCH (08:46)
[2016-09-06] MEDS: TOPIRAMATE 50 MG TABLET PO SCH ×2 (08:46→20:32)
[2016-09-06] MEDS: PIOGLITAZONE HCL 15 MG TABLET PO SCH (08:47)
[2016-09-06] MEDS: AMMONIUM LACTATE 225 APPL BTL TP SCH ×2 (08:48→20:32)
[2016-09-06] MEDS ORDERED: ATORVASTATIN CALCIUM 40 MG TABLET PO SCH (09:00)
[2016-09-06] MEDS ORDERED: AMIODARONE HCL 200 MG TABLET PO SCH (09:00)
[2016-09-06] MEDS: NYSTATIN 15 APPL BTL TP SCH ×2 (10:48→20:32)
[2016-09-06 10:52] LABS: Hematocrit 28.1 % (37.0-47.0); Hemoglobin 8.7 gm/dL (12.5-16.0)
[2016-09-06 16:29] LABS: Hematocrit 28.5 % (37.0-47.0); Hemoglobin 8.7 gm/dL (12.5-16.0)
--- NOTE | 2016-09-06 16:58 | PN ---
Subjective - Date and Time Seen Date: 09/06/16 Time: 12:10 Subjective Narrative: Feels much better than yesterday. No bleeding noted. Not light headed or weak. No pain. Objective - Review of Systems Generalized/Overall Review: Reports: No Symptoms Reported EENTM: Reports: No Symptoms Reported Respiratory: Reports: No Symptoms Reported Cardiac: Reports: No Symptoms Reported Abdominal: Reports: No Symptoms Reported Genitourinary Symptoms: Reports: No Symptoms Reported Musculoskeletal Complaints: Reports: No Symptoms Reported Neurological: Reports: No Symptoms Reported Skin: Reports: No Symptoms Reported Endocrine: Reports: No Symptoms Reported Misc: All systems neg except as marked - Vitals Vitals: Last Vital Signs Selected Entries 09/06/16 09/06/16 09/06/16 08:09 08:45 10:21 Temperature 36.8 C Temperature Temporal Artery Source Scan Pulse Rate 78 78 71 Respiratory 16 20 Rate Respiratory Normal Depth Respiratory Normal Effort Respiratory Normal Pattern Blood Pressure 142/68 142/62 Blood Pressure Sitting Position O2 Sat by Pulse 99 Oximetry Oxygen Delivery Nasal Cannula Nasal Cannula Method Oxygen Flow 2 2 Rate - Abnormal Lab Findings Abnormal Lab Findings: Abnormal Lab Results 09/05/16 09/06/16 09/06/16 Range/Units Unknown 05:39 05:39 RBC 2.88 L (4.2-5.4) M/mm3 Hgb 8.8 L (12.5-16.0) gm/dL Hct 28.4 L (37.0-47.0) % MCHC 31.0 L (32-36) g/dl RDW 18.2 H (11.5-14.0) % MPV 11.5 H (6.0-9.5) fl Immature Gran % (Auto) 1.90 H (0.001-0.429) % Immature Gran # (Auto) 0.20 H (0.000-0.0310) K/mm3 Lymphocytes % 14.1 L (20-51) % Monocytes % 14.7 H (0.0-9) % Neutrophils # 7.1 H (1.3-6.0) K/mm3 Monocytes # 1.5 H (0.0-1.0) k/mm3 B-Natriuretic Peptide 405 H (5-325) pg/mL Stool Occult Blood Positive H 09/06/16 09/06/16 Range/Units 10:50 16:28 RBC (4.2-5.4) M/mm3 Hgb 8.7 L 8.7 L (12.5-16.0) gm/dL Hct 28.1 L 28.5 L (37.0-47.0) % MCHC (32-36) g/dl RDW (11.5-14.0) % MPV (6.0-9.5) fl Immature Gran % (Auto) (0.001-0.429) % Immature Gran # (Auto) (0.000-0.0310) K/mm3 Lymphocytes % (20-51) % Monocytes % (0.0-9) % Neutrophils # (1.3-6.0) K/mm3 Monocytes # (0.0-1.0) k/mm3 B-Natriuretic Peptide (5-325) pg/mL Stool Occult Blood - Exam Constitutional: Present: Alert, Oriented x3, Cooperative, Well developed, No distress, Morbidly obese ENT Exam: Present: normal ENT inspection, hearing grossly normal Neck: Present: normal inspection Respiratory: Present: lungs clear, no respiratory distress Cardiovascular/Chest: Present: regular rate, rhythm, no murmur Abdomen: Present: Normal bowel sounds, soft, nontender, nondistended, no rebound tenderness, no hepatospenomegaly, no masses, obese Extremity: Present: pedal edema Skin Exam: Present: normal color, warm/dry, no cyanosis Neurologic: Present: alert, normal mood/affect, oriented x 3 Appearance: Present: appropriate appearance, appropriate insight, neat Eye contact: Present: cooperative, good eye contact, normal speech Assessment/Plan Plan Narrative: Rest gut. Monitor Hgb. PUD meds. Up with help. - Problems/Diagnosis (1) Anemia Problem: Acute Qualifiers: Anemia type: other cause Other causes of anemia: acute posthemorrhagic Qualified Code(s): D62 - Acute posthemorrhagic anemia (2) Gastrointestinal hemorrhage Problem: Acute (3) Syncope and collapse Problem: Acute (4) Atrial fibrillation Problem: Chronic Qualifiers: Atrial fibrillation type: chronic Qualified Code(s): I48.2 - Chronic atrial fibrillation (5) CHF (congestive heart failure) Problem: Chronic Qualifiers: Congestive heart failure type: diastolic (6) Chronic respiratory failure with hypoxia and hypercapnia Problem: Chronic (7) Diabetes mellitus type 2 in obese Problem: Chronic (8) Fibromyalgia Problem: Chronic (9) GERD (gastroesophageal reflux disease) Problem: Chronic Qualifiers: Esophagitis presence: without esophagitis Qualified Code(s): K21.9 - Gastro -esophageal reflux disease without esophagitis (10) Gout Problem: Chronic Qualifiers: Gout site: multiple sites Chronicity: chronic Presence of tophus: without tophus (11) Headache Problem: Chronic Qualifiers: Headache chronicity pattern: chronic headache Intractability: not intractable (12) Hyperlipidemia Problem: Chronic Qualifiers: Hyperlipidemia type: Mixed hyperlipidemia Qualified Code(s): E78.2 - Mixed hyperlipidemia (13) Hypertension Problem: Chronic Qualifiers: Hypertension type: essential hypertension Qualified Code(s): I10 - Essential (primary) hypertension (14) Hypothyroidism Problem: Chronic Qualifiers: Hypothyroidism type: acquired Qualified Code(s): E03.9 - Hypothyroidism, unspecified (15) Rectovaginal fistula Problem: Chronic (16) Venous insufficiency of both lower extremities Problem: Chronic (17) Venous stasis dermatitis Problem: Chronic Qualifiers: Laterality: bilateral (18) JACINTO (obstructive sleep apnea) Problem: Chronic
[2016-09-06] MEDS: NORMAL SALINE 1,000 ML IV PRN (17:30)
[2016-09-06] MEDS ORDERED: ROSUVASTATIN CALCIUM 10 MG TABLET PO SCH (21:00)
[2016-09-07] MEDS: ALBUTEROL SULFATE/IPRATROPIUM 3 ML NEBU IH SCH ×2 (06:08→10:55)
[2016-09-07 06:11] LABS: Hemoglobin 8.6 gm/dL (12.5-16.0); Mean Cell Volume 102.1 fl (78-100); Mean Corpuscular Hemoglobin 30.3 pg (27-31); Mean Corpuscular Hgb Conc 29.7 g/dl (32-36); Neutrophil # 5.8 K/mm3 (1.3-6.0); Neutrophil % 66.1 % (42-75.0); Platelet Count 239 K/mm3 (150-450); Red Blood Count 2.84 M/mm3 (4.2-5.4); Red Cell Distribution Width 18.2 % (11.5-14.0); White Blood Count 8.7 K/mm3 (4.0-10.5)
[2016-09-07] MEDS: NORMAL SALINE 1,000 ML IV PRN (06:25)
[2016-09-07] MEDS: PANTOPRAZOLE SODIUM 40 MG in NORMAL SALINE 100 ML IV SCH (06:26)
[2016-09-07] MEDS: LEVOTHYROXINE SODIUM 25 MCG TABLET PO SCH (06:26)
[2016-09-07] MEDS: METOCLOPRAMIDE HCL 5 MG TABLET PO SCH ×2 (06:26→11:14)
[2016-09-07 06:30] LABS: Anion Gap 8.7 mmol/L (6.8-13.8); BUN/Creatinine Ratio 27.2 (9.0-21.6); Calcium * 8.5 mg/dL (7.9-10.9); Carbon Dioxide 32.8 mmol/L (24-32.6); Estimated Creat Clear 26.2; Potassium 3.5 mmol/L (3.4-4.6)
[2016-09-07] MEDS: INSULIN LISPRO 100 UNITS/ML VIAL SC SCH (06:49)
[2016-09-07] MEDS ORDERED: HUM INSULIN NPH/REG INSULIN HM 100 UNIT/ML VIAL SC SCH (07:00)
--- NOTE | 2016-09-07 08:52 | DS ---
(1) Anemia Problem: Acute Qualifiers: Anemia type: other cause Other causes of anemia: acute posthemorrhagic Qualified Code(s): D62 - Acute posthemorrhagic anemia (2) Gastrointestinal hemorrhage Problem: Acute (3) Syncope and collapse Problem: Acute (4) Atrial fibrillation Problem: Chronic Qualifiers: Atrial fibrillation type: chronic Qualified Code(s): I48.2 - Chronic atrial fibrillation (5) CHF (congestive heart failure) Problem: Chronic Qualifiers: Congestive heart failure type: diastolic (6) Chronic respiratory failure with hypoxia and hypercapnia Problem: Chronic (7) Diabetes mellitus type 2 in obese Problem: Chronic (8) Fibromyalgia Problem: Chronic (9) GERD (gastroesophageal reflux disease) Problem: Chronic Qualifiers: Esophagitis presence: without esophagitis Qualified Code(s): K21.9 - Gastro -esophageal reflux disease without esophagitis (10) Gout Problem: Chronic Qualifiers: Gout site: multiple sites Chronicity: chronic Presence of tophus: without tophus (11) Headache Problem: Chronic Qualifiers: Headache chronicity pattern: chronic headache Intractability: not intractable (12) Hyperlipidemia Problem: Chronic Qualifiers: Hyperlipidemia type: Mixed hyperlipidemia Qualified Code(s): E78.2 - Mixed hyperlipidemia (13) Hypertension Problem: Chronic Qualifiers: Hypertension type: essential hypertension Qualified Code(s): I10 - Essential (primary) hypertension (14) Hypothyroidism Problem: Chronic Qualifiers: Hypothyroidism type: acquired Qualified Code(s): E03.9 - Hypothyroidism, unspecified (15) Rectovaginal fistula Problem: Chronic (16) Venous insufficiency of both lower extremities Problem: Chronic (17) Venous stasis dermatitis Problem: Chronic Qualifiers: Laterality: bilateral (18) JACINTO (obstructive sleep apnea) Problem: Chronic Description of Stay: Transfused 2 units prbc's. Coumadin, aspirin, plavix were stopped. Reasons were discussed with patient, who expressed understanding. Was seen in consultation by general surgery, who felt given her general condition, a conservative approach was best. She was given medication for gastropathy. She feels much better, although she had one transient episode of vomiting yesterday. Hungry today, no nausea. Diet will be advanced. Hgb has been stable, so will discharge home off blood thinners for now. Procedures Performed: none Discharge Disposition: Home self care Disposition: Home self-care Condition: Good Discharge Activity: Activity as tolerated Discharge Diet: Consistent carbs, Low salt Consultation Done:: Dr. Singh, general surgery Problem Oriented Discharge Instructions to Patient/Family: Gastrointestinal Bleeding, [id number] Additional Patient Instructions (free text): O2 2 liters nasal cannula continuous. CBC BMP in [address] Metz in 1 week. Prescriptions (Any new or edited meds): Insulin Lispro [Humalog] 0 units SC ACHSINS 30 Days Nystatin [Mycostatin Powder] 1 appl TP BID #1 btl Pantoprazole Sodium [Protonix] 40 mg PO DAILY #30 tab Complete Home Medications List: Complete Home Medication List: Albuterol Sulfate [Ventolin HFA] 2 puff IH Q4H PRN 03/19/16 Albuterol Sulfate/Ipratropium [Duoneb 2.5-0.5MG/3ML Soln] 3 ml IH QID 03/19/16 Ammonium Lactate [Amlactin] 1 appl TP BID 03/19/16 Atorvastatin Calcium 40 mg PO DAILY 03/19/16 Carbinoxamine Maleate [Arbinoxa] 4 mg PO TID 03/19/16 Famotidine 20 mg PO BID 03/19/16 Furosemide [Lasix] 80 mg PO BID 03/19/16 Hydrophilic Ointment [Aquaphilic Ointment] 1 appl TP BID 03/19/16 Levothyroxine Sodium [Synthroid] 25 mcg PO DAILY 03/19/16 Losartan Potassium [Cozaar] 100 mg PO DAILY 03/19/16 Metoclopramide HCl [Reglan] 5 mg PO ACHS 03/19/16 Metoprolol Tartrate 100 mg PO BID 03/19/16 Multivitamin [One Daily Essential] 1 each PO DAILY 03/19/16 Prazosin HCl [Minipress] 5 mg PO DAILY 03/19/16 Sucralfate [Carafate] 1 gm PO QID 03/19/16 Trolamine Salicylate [Aspercreme] 1 appl TP QID PRN 03/19/16 Acarbose [Precose] 25 mg PO TID 06/15/16 Iron Aspgly,Ps/C/Succinic Acid [Ferrex 150 Plus Capsule] 1 each PO TID 06/15/16 Januvia 50 mg PO DAILY 06/15/16 Pioglitazone HCl [Actos] 15 mg PO DAILY 06/15/16 Topiramate [Topamax] 25 mg PO BID 06/15/16 Acetaminophen [Tylenol] 650 mg PO QID PRN #1 tab 06/19/16 Albuterol Sulfate [Albuterol Sulfate 2.5 MG/0.5ML] 2.5 mg IH Q4H PRN #0 vial.neb 06/19/16 Amiodarone HCl [Cordarone] 400 mg PO BID #60 tablet 06/19/16 Insulin NPH Hum/Reg Insulin Hm [Humulin 70-30] 20 unit SC AC 30 Days 06/19/16 Insulin Regular, Human [Humulin R] 25 units SC DAILY@1130 30 Days 06/19/16 Insulin Regular, Human [Humulin R] 60 units SC DAILY@0700 30 Days 06/19/16 Multivitamins [Multivitamin Jaylon] 1 cap PO DAILY capsule 06/19/16 Ferrous Sulfate 325 mg PO DAILY 09/05/16 Insulin Lispro [Humalog] 0 units SC ACHSINS 30 Days 09/07/16 Nystatin [Mycostatin Powder] 1 appl TP BID #1 btl 09/07/16 Pantoprazole Sodium [Protonix] 40 mg PO DAILY #30 tab 09/07/16
[2016-09-07] MEDS ORDERED: ACARBOSE 25 MG PO SCH (09:00)
[2016-09-07] MEDS: PIOGLITAZONE HCL 15 MG TABLET PO SCH (09:27)
[2016-09-07] MEDS: SUCRALFATE 1 G TABLET PO SCH (09:27)
[2016-09-07] MEDS: HYDROPHILIC OINTMENT 454 APPL JAR TP SCH (09:27)
[2016-09-07] MEDS: LOSARTAN POTASSIUM 50 MG TABLET PO SCH (09:28)
[2016-09-07] MEDS: FERROUS SULFATE 325 MG TABLET PO SCH (09:28)
[2016-09-07] MEDS: METOPROLOL TARTRATE 100 MG TABLET PO SCH (09:28)
[2016-09-07] MEDS: MULTIVITAMINS 1 CAP CAPSULE PO SCH (09:28)
[2016-09-07] MEDS: AMIODARONE HCL 200 MG TABLET PO SCH (09:28)
[2016-09-07] MEDS: sitaGLIPtin PHOSPHATE 50 MG TABLET PO SCH (09:28)
[2016-09-07] MEDS: AMMONIUM LACTATE 225 APPL BTL TP SCH (09:28)
[2016-09-07] MEDS: NYSTATIN 15 APPL BTL TP SCH (09:29)
[2016-09-07] MEDS: TOPIRAMATE 50 MG TABLET PO SCH (09:29)
[2016-09-07 11:46] VITALS: BP 132/50
== END 2016-09-07 12:17 | disposition home or self-care (01) | DRG 378 ==
LOC: ER 15:49 → MS 17:35
PROVIDERS: ADMIT Internal Medicine; ATTEND Allergy & Immunology
PROC: 30233N1 Transfusion of Nonautologous Red Blood Cells into Peripheral Vein, Percutaneous Approach (ICD-10-PCS; principal; 2016-09-05)
DX: K92.2 Gastrointestinal hemorrhage, unspecified (principal); D62 Acute posthemorrhagic anemia; I50.32 Chronic diastolic (congestive) heart failure; R55 Syncope and collapse; I10 Essential (primary) hypertension; K21.9 Gastro-esophageal reflux disease without esophagitis; E03.9 Hypothyroidism, unspecified; I25.10 Atherosclerotic heart disease of native coronary artery without angina pectoris; E11.9 Type 2 diabetes mellitus without complications; J44.9 Chronic obstructive pulmonary disease, unspecified; Z95.1 Presence of aortocoronary bypass graft; Z99.81 Dependence on supplemental oxygen; Z87.440 Personal history of urinary (tract) infections; Z79.82 Long term (current) use of aspirin; Z79.02 Long term (current) use of antithrombotics/antiplatelets; Z79.4 Long term (current) use of insulin
CPT/HCPCS: 36415; 36430; 80048; 80053; 82272; 83735; 83880; 84484; 85014; 85018; 85025; 85610; 85730; 86850; 86900; 87081; 87338; 93005; 94640; 99291; P9016

== ENCOUNTER 2016-09-21 17:08 | Observation (INO) | payer MEDICARE ==
--- OUTSIDE RECORDS SUMMARY | 2016-09-21 18:12 | XMS REPORT | Continuity of Care Document ---
:1945 Author Organization [facility] ([facility]) Address [place] [address] Phone [phone] Care Team Providers Name Role Phone Abe Metz Primary Care Provider [phone] Source Comments This disclosure is being made pursuant to the Care Everywhere program, applicable federal and state laws, and may not contain all informaitonavailable regarding this patient.[facility] ([facility]) Active Allergies and Adverse Reactions Allergen [...] mouth 3 times daily. BLOOD-GLUCOSE METER Active (Njini ULTRA SYSTEM KIT NA ) SUPPLY ONE [...] Taken Blood Pressure 122/65 07/11/2015 12:49 PM [facility] Pulse 87 07/11/2015 12:49 PM [facility] Temperature 36.1 C (97 F) 07/11/2015 12:49 PM [facility] Respiratory Rate 20 06/20/2015 10:17 PM [facility] Height 1.575 m (5' 2") 07/11/2015 12:49 PM [facility] Weight 131.6 kg (290 lb 2 oz) 07/11/2015 12:49 PM [facility] Body Mass Index 53.05 07/11/2015 12:49 PM [facility] Oxygen Saturation 95% 06/20/2015 10:17 PM [facility] Plan of Care Health Maintenance Due Date [...]
[2016-09-21 18:36] LABS: Hematocrit 31.4 % (37.0-47.0); Hemoglobin 8.8 gm/dL (12.5-16.0); Mean Corpuscular Hemoglobin 29.4 pg (27-31); Mean Platelet Volume 11.6 fl (6.0-9.5); Neutrophil # 2.9 K/mm3 (1.3-6.0); Neutrophil % 64.8 % (42-75.0); Platelet Count 168 K/mm3 (150-450); Red Blood Count 2.99 M/mm3 (4.2-5.4); Red Cell Distribution Width 15.3 % (11.5-14.0); White Blood Count 4.5 K/mm3 (4.0-10.5)
[2016-09-21 18:42] LABS: Prothrombin Time (Patient) 10.6 Seconds (9.4-11.4)
[2016-09-21 18:46] LABS: INR 1.02 INR (0.90-1.10)
[2016-09-21 18:50] LABS: ALT 16 U/L (19-67); AST 15 U/L (0-48); Albumin * 3.1 gm/dl (3.4-5.0); Alkaline Phosphatase * 94 U/L (50-170); Anion Gap 6.6 mmol/L (6.8-13.8); BUN/Creatinine Ratio 14.4 (9.0-21.6); Bilirubin, Total 0.2 mg/dL (0.0-1.1); Blood Urea Nitrogen 21 mg/dL (3-23); Ca. Corrected For Albumin 9.2 mg/dL (8.4-10.2); Calcium * 8.8 mg/dL (7.9-10.9); Carbon Dioxide 37.5 mmol/L (24-32.6); Chloride 102 mmol/L (97-106); Glucose * 127 mg/dL (70-110); Lipase 135 U/L (73-393); Potassium 3.1 mmol/L (3.4-4.6); Sodium 143 mmol/L (132-142); Total Protein 6.6 gm/dL (6.2-8.2); Troponin I Less than 0.017 ng/ml (0.00-0.10)
--- NOTE | 2016-09-21 19:37 | ERNOTE ---
Medical Problem HPI - Narrative Date of Service: 09/21/16 - General Chief Complaint: General Assessment Time Seen by Provider: 09/21/16 17:51 Source: patient Exam Limitations: no limitations - Immun/Allergies/Home Medications Immunizations: IMMUNIZATION HX Immunizations Up to Date Yes History of Influenza Vaccine Yes Hx Pneumococcal Vaccination More Information Required Allergies/Adverse Reactions: Allergies cat dander Allergy (Verified 09/21/16 18:15) fluticasone propionate [From Advair Diskus] Allergy (Verified 09/21/16 18:15) levofloxacin [From Levaquin] Allergy (Verified 09/21/16 18:15) meperidine HCl [From Demerol] Allergy (Verified 09/21/16 18:15) metoclopramide HCl [From Reglan] Allergy (Verified 09/21/16 18:15) NSAIDS (Non-Steroidal Anti-Inflamma Allergy (Verified 09/21/16 18:15) procaine HCl [From Novocain] Allergy (Verified 09/21/16 18:15) salmeterol xinafoate [From Advair Diskus] Allergy (Verified 09/21/16 18:15) tramadol Allergy (Verified 09/21/16 18:15) Home Medications: HOME MEDICATIONS Albuterol Sulfate [Ventolin HFA] 2 puff IH Q4H PRN 03/19/16 [Last Taken Unknown] Albuterol Sulfate/Ipratropium [Duoneb 2.5-0.5MG/3ML Soln] 3 ml IH QID 03/19/16 [ Last Taken Unknown] Ammonium Lactate [Amlactin] 1 appl TP BID 03/19/16 [Last Taken Unknown] Atorvastatin Calcium 40 mg PO DAILY 03/19/16 [Last Taken Unknown] Carbinoxamine Maleate [Arbinoxa] 4 mg PO TID 03/19/16 [Last Taken Unknown] Famotidine 20 mg PO BID 03/19/16 [Last Taken Unknown] Furosemide [Lasix] 80 mg PO BID 03/19/16 [Last Taken Unknown] Hydrophilic Ointment [Aquaphilic Ointment] 1 appl TP BID 03/19/16 [Last Taken Unknown] Levothyroxine Sodium [Synthroid] 25 mcg PO DAILY 03/19/16 [Last Taken Unknown] Losartan Potassium [Cozaar] 100 mg PO DAILY 03/19/16 [Last Taken Unknown] Metoclopramide HCl [Reglan] 5 mg PO ACHS 03/19/16 [Last Taken Unknown] Metoprolol Tartrate 100 mg PO BID 03/19/16 [Last Taken Unknown] Multivitamin [One Daily Essential] 1 each PO DAILY 03/19/16 [Last Taken Unknown] Prazosin HCl [Minipress] 5 mg PO DAILY 03/19/16 [Last Taken Unknown] Sucralfate [Carafate] 1 gm PO QID 03/19/16 [Last Taken Unknown] Trolamine Salicylate [Aspercreme] 1 appl TP QID PRN 03/19/16 [Last Taken Unknown ] Acarbose [Precose] 25 mg PO TID 06/15/16 [Last Taken Unknown] Iron Aspgly,Ps/C/Succinic Acid [Ferrex 150 Plus Capsule] 1 each PO TID 06/15/16 [Last Taken Unknown] Januvia 50 mg PO DAILY 06/15/16 [Last Taken Unknown] Pioglitazone HCl [Actos] 15 mg PO DAILY 06/15/16 [Last Taken Unknown] Topiramate [Topamax] 25 mg PO BID 06/15/16 [Last Taken Unknown] Acetaminophen [Tylenol] 650 mg PO QID PRN #1 tab 06/19/16 [Last Taken Unknown] Albuterol Sulfate [Albuterol Sulfate 2.5 MG/0.5ML] 2.5 mg IH Q4H PRN #0 vial.neb 06/19/16 [Last Taken Unknown] Amiodarone HCl [Cordarone] 400 mg PO BID #60 tablet 06/19/16 [Last Taken Unknown ] Insulin NPH Hum/Reg Insulin Hm [Humulin 70-30] 20 unit SC AC 30 Days 06/19/16 [ Last Taken Unknown] Insulin Regular, Human [Humulin R] 25 units SC DAILY@1130 30 Days 06/19/16 [ Last Taken Unknown] Insulin Regular, Human [Humulin R] 60 units SC DAILY@0700 30 Days 06/19/16 [ Last Taken Unknown] Multivitamins [Multivitamin Jaylon] 1 cap PO DAILY capsule 06/19/16 [Last Taken Unknown] Ferrous Sulfate 325 mg PO DAILY 09/05/16 [Last Taken Unknown] Insulin Lispro [Humalog] 0 units SC ACHSINS 30 Days 09/07/16 [Last Taken Unknown ] Nystatin [Mycostatin Powder] 1 appl TP BID #1 btl 09/07/16 [Last Taken Unknown] Pantoprazole Sodium [Protonix] 40 mg PO DAILY #30 tab 09/07/16 [Last Taken Unknown] - History of Present History Narrative: Patient presents to the ED for generalized weakness. She relates she feels like her blood counts are low again. No focal weakness. She feels generalized weakness. No trouble breathing. No fever. Has not had any vomiting of blood. No diarrhea or blood in the stool. She has chronic back pain but no acute CP or SOB. Nothing makes this better or worse. Timing: constant Severity: moderate Modifying Factors - (Improves): Present: other - nothing Modifying Factors - (Worsens): Present: other - nothing Review of Systems - Review of Systems Constitutional: Absent: fever ENT: Absent: sore throat Respiratory: Absent: shortness of breath Cardiology: Absent: chest pain Gastrointestinal/Abdominal: Absent: abdominal pain Genitourinary: Absent: dysuria Musculoskeletal: Present: back pain Neurological: Present: weakness All Other Systems: All systems neg except as marked - Patient's Past Medical History Patient History - Medical: Anemia, Anesthesia Reaction, Anxiety, Arthritis, Cataracts, Diabetes Type 2, Diabetes Type 2 Insulin Dependent, Fibromyalgia, GERD, Hypothyroidism, Migraines, Obesity, Osteoarthritis, Osteoporosis, Renal Disease, UTI'S, Other Patient History - Cardiac/Respiratory: Coronary Heart Disease, CHF, COPD, Home O2 Use Patient History - Cancer: No Hx of Cancer Patient History - Surgical Procedures: Appendectomy, Cholecystectomy, Coronary Bypass Surgery, D & C, EGD, Hysterectomy, Total Knee Replacement, Other Patient History - Other: None - Family History Mother Family History - Medical: , Diabetes Type 2 Insulin Dependent Family History - Cardiac/Respiratory: Arrhythmias Family History - Cancer: No pertinent family hx Father Family History - Medical: , Diabetes Type 2 Insulin Dependent Family History - Cardiac/Respiratory: No pertinent hx Family History - Cancer: No pertinent family hx Grandmother-Paternal Family History - Medical: Family History - Cardiac/Respiratory: History Unknown Family History - Cancer: History Unknown Grandfather-Paternal Family History - Medical: , No pertinent hx Family History - Cardiac/Respiratory: No pertinent hx Family History - Cancer: No pertinent family hx Grandfather-Maternal Family History - Medical: , No pertinent hx Family History - Cardiac/Respiratory: CHF, Myocardial Infarction Family History - Cancer: No pertinent family hx Grandmother-Maternal Family History - Medical: , No pertinent hx Family History - Cardiac/Respiratory: Myocardial Infarction Family History - Cancer: No pertinent family hx Brother Family History - Medical: , No pertinent hx Family History - Cardiac/Respiratory: No pertinent hx Family History - Cancer: No pertinent family hx Sister Family History - Medical: Family History - Cardiac/Respiratory: No pertinent hx Family History - Cancer: No pertinent family hx - Social History Living Situations: other Abuse History: No History of abuse Psych History: Hx of Anxiety Have you smoked in the past 12 months: No Alcohol Use: none Drug Use: none - Immunizations Immunizations Up to Date: Yes Hx Pneumococcal Vaccination: More Information Required to Determine History of Influenza Vaccine: Yes Physical Exam - Physical Exam General Appearance: Present: alert, no apparent distress Eye Exam: Normal inspection: bilateral, PERRL: bilateral Ears, Nose, Throat: Present: normal ENT inspection Neck: Present: normal inspection Respiratory: Present: no respiratory distress, normal breath sounds, no accessory muscle use, lungs clear Cardiovascular/Chest: Present: regular rate, rhythm, normal peripheral pulses Gastrointestinal/Abdominal: Present: normal bowel sounds, nontender, soft. Absent: tenderness Back Exam: Absent: CVA tenderness (R), CVA tenderness (L) Extremity Exam: Present: other - no calf tenderness Neurological Exam: Present: alert, normal mood/affect, no motor/sensory deficits , other - generalized weakness. No focal acute unilateral weakness Skin Exam: Present: normal color. Absent: skin rash ED Progress - Results and Orders Patient's Lab Results:: I have reviewed the patient's lab results. - Vital Signs Patient's Vital Signs:: I have reviewed the patient's vital signs. Vital Signs: Vital Signs 09/21/16 09/21/16 17:49 19:20 Temperature 37.1 C Pulse Rate 62 60 Respiratory 24 H 22 H Rate Blood Pressure 96/38 130/52 O2 Sat by Pulse 94 95 Oximetry - EKG EKG read: Interp. by me EKG Comments: Sinus cal rate 59. Non-specific ST/T wave changes. No STEMI. - Progress/Reassessment Chief Complaint: General Assessment - Transfer of Care Physician Sign Out: Bean Rucker Receiving Physician: Yunior Mcneill Pending Results: Labs, X-ray results Expected Disposition: Admit Departure - Departure Clinical Impression: Generalized weakness Condition: Stable Referrals: Abe Castro MD [Primary Care Provider] -
[2016-09-21 19:44] LABS: Urine Bilirubin Negative (NEGATIVE); Urine Blood Negative /ul (NEGATIVE); Urine Color Yellow; Urine Ketone Negative (NEGATIVE)
[2016-09-21 19:45] LABS: Urine Nitrite Negative (NEGATIVE); Urine Protein Negative (NEGATIVE); Urine Urobilinogen Normal (NORMAL)
[2016-09-21 19:49] LABS: Urine Appearance Slightly Cloudy
[2016-09-21 19:51] LABS: Urine Bacteria 3+; Urine RBC None Seen /hpf (0-5); Urine WBC >50 /hpf (0-5)
[2016-09-21] MEDS ORDERED: NORMAL SALINE 1,000 ML IV PRN (20:01)
[2016-09-21] MEDS ORDERED: POTASSIUM CHLORIDE 20 MEQ TABLET.SA PO ONE (20:04)
[2016-09-21] MEDS ORDERED: POTASSIUM CHLORIDE 20 MEQ TABLET.SA ONE (20:13)
--- OUTSIDE RECORDS SUMMARY | 2016-09-21 20:15 | XMS REPORT | Continuity of Care Document ---
:1945 Author Organization [facility] ([facility]) Address [place] [address] Phone [phone] Care Team Providers Name Role Phone Abe Metz Primary Care Provider [phone] Source Comments This disclosure is being made pursuant to the Care Everywhere program, applicable federal and state laws, and may not contain all informaitonavailable regarding this patient.[facility] ([facility]) Active Allergies and Adverse Reactions Allergen Noted [...] mouth 3 times daily. BLOOD-GLUCOSE METER Active ([employer]light ULTRA SYSTEM KIT NA ) SUPPLY ONE [...] Taken Blood Pressure 122/65 07/11/2015 12:49 PM [employer]LLATION CLERK Pulse 87 07/11/2015 12:49 PM [employer] CLERK Temperature 36.1 C (97 F) 07/11/2015 12:49 PM [employer]LL[employer] CLERK Respiratory Rate 20 06/20/2015 10:17 PM [employer] CANCELLATION CLERK Height 1.575 m (5' 2") 07/11/2015 12:49 PM [employer] CLERK Weight 131.6 kg (290 lb 2 oz) 07/11/2015 12:49 PM [employer] CLERK Body Mass Index 53.05 07/11/2015 12:49 PM [employer] CANCELLATION CLERK Oxygen Saturation 95% 06/20/2015 10:17 PM [employer] CANCELLATION CLERK Plan of Care Health Maintenance Due Date [...]
--- NOTE | 2016-09-21 22:29 | HP ---
<Jodi Ochoa - Last Filed: 09/21/16 22:29> Chief Complaint - Chief Complaint Date of Service: 09/21/16 Time of Service: 22:10 Chief Complaint: weakness History of Present Illness: 71 years old female adm to the hospital from the ER with reports of weakness, dizziness and feeling lethargic while at home. She report dysuria and denies fever or chills.pt stated she told her daughter how she was feeling and she insisted that she comes to the ER.PMH significant for CHF, hypertension, recurrent UTI ( colovaginal fistual), sleep apnea ( refused to use cpap and uses 2L oxygen at home), COPD, diabetes, anemia, RLS, GI bleeding, peptic ulcer disease and HDL. On her last adm she had GI bleeding S/P PRBC and Hgb currently at baseline. In ER Hgb 8.8 Lactic acid on adm 2.8--->1.5 gradually improved. UA with WBC >50 and bacteria. Rocephin was initiated and urine culture pending. Pt have recurrent UTI and weakness, 06/15/16 last cath urine culture grew escherichia fergusonii. Will adm for observation and plan for possible discharge home tomorrow.Plan of care discussed with pt she verbalized understanding and agrees. - Patient's Past Medical History Patient History - Medical: Anemia, Anesthesia Reaction, Anxiety, Arthritis, Cataracts, Diabetes Type 2, Diabetes Type 2 Insulin Dependent, Fibromyalgia, GERD, Hypothyroidism, Migraines, Obesity, Osteoarthritis, Osteoporosis, Renal Disease, UTI'S - recurrent, Other - peptic ulcer disease , GI bleeding Patient History - Cardiac/Respiratory: Coronary Heart Disease, CHF, COPD, Home O2 Use, Sleep Apnea - refuses cpap Patient History - Cancer: No Hx of Cancer Patient History - Surgical Procedures: Appendectomy, Cholecystectomy, Coronary Bypass Surgery, D & C, EGD, Hysterectomy, Total Knee Replacement, Other Patient History - Other: None - Family History Mother Family History - Medical: , Diabetes Type 2 Insulin Dependent Family History - Cardiac/Respiratory: Arrhythmias Family History - Cancer: No pertinent family hx Father Family History - Medical: , Diabetes Type 2 Insulin Dependent Family History - Cardiac/Respiratory: No pertinent hx Family History - Cancer: No pertinent family hx Grandmother-Paternal Family History - Medical: Family History - Cardiac/Respiratory: History Unknown Family History - Cancer: History Unknown Grandfather-Paternal Family History - Medical: , No pertinent hx Family History - Cardiac/Respiratory: No pertinent hx Family History - Cancer: No pertinent family hx Grandfather-Maternal Family History - Medical: , No pertinent hx Family History - Cardiac/Respiratory: CHF, Myocardial Infarction Family History - Cancer: No pertinent family hx Grandmother-Maternal Family History - Medical: , No pertinent hx Family History - Cardiac/Respiratory: Myocardial Infarction Family History - Cancer: No pertinent family hx Brother Family History - Medical: , No pertinent hx Family History - Cardiac/Respiratory: No pertinent hx Family History - Cancer: No pertinent family hx Sister Family History - Medical: Family History - Cardiac/Respiratory: No pertinent hx Family History - Cancer: No pertinent family hx - Social History Living Situations: other Abuse History: No History of abuse Psych History: Hx of Anxiety Smoking Status: Former smoker Have you smoked in the past 12 months: No Do you dip or chew tobacco: No Alcohol Use: none Drug Use: none - Immunizations Immunizations Up to Date: Yes Hx Pneumococcal Vaccination: More Information Required to Determine History of Influenza Vaccine: Yes Review Of Systems (GEN) - Review of Systems Generalized/Overall Review: Present: No Symptoms Reported EENTM: Present: No Symptoms Reported Respiratory: Present: Shortness of Breath Cardiac: Present: No Symptoms Reported Abdominal: Present: No Symptoms Reported Genitourinary: Present: Burning Musculoskeletal: Present: No Symptoms Reported Neurological: Present: No Symptoms Reported Skin: Present: No Symptoms Reported Allergies/Adverse Reactions: Allergies Allergy/AdvReac Type Severity Reaction Status Date / Time cat dander Allergy Verified 09/21/16 18:15 fluticasone propionate Allergy Verified 09/21/16 18:15 [From Advair Diskus] levofloxacin [From Levaquin] Allergy Verified 09/21/16 18:15 meperidine HCl [From Demerol] Allergy Verified 09/21/16 18:15 metoclopramide HCl Allergy Verified 09/21/16 18:15 [From Reglan] NSAIDS (Non-Steroidal Allergy Verified 09/21/16 18:15 Anti-Inflamma procaine HCl [From Novocain] Allergy Verified 09/21/16 18:15 salmeterol xinafoate Allergy Verified 09/21/16 18:15 [From Advair Diskus] tramadol Allergy Verified 09/21/16 18:15 Home Medications: HOME MEDICATIONS Albuterol Sulfate [Ventolin HFA] 2 puff IH Q4H PRN 03/19/16 [Last Taken Unknown] Albuterol Sulfate/Ipratropium [Duoneb 2.5-0.5MG/3ML Soln] 3 ml IH QID 03/19/16 [ Last Taken Unknown] Ammonium Lactate [Amlactin] 1 appl TP BID 03/19/16 [Last Taken Unknown] Atorvastatin Calcium 40 mg PO DAILY 03/19/16 [Last Taken Unknown] Carbinoxamine Maleate [Arbinoxa] 4 mg PO TID 03/19/16 [Last Taken Unknown] Famotidine 20 mg PO BID 03/19/16 [Last Taken Unknown] Furosemide [Lasix] 80 mg PO BID 03/19/16 [Last Taken Unknown] Hydrophilic Ointment [Aquaphilic Ointment] 1 appl TP BID 03/19/16 [Last Taken Unknown] Levothyroxine Sodium [Synthroid] 25 mcg PO DAILY 03/19/16 [Last Taken Unknown] Losartan Potassium [Cozaar] 100 mg PO DAILY 03/19/16 [Last Taken Unknown] Metoclopramide HCl [Reglan] 5 mg PO ACHS 03/19/16 [Last Taken Unknown] Metoprolol Tartrate 100 mg PO BID 03/19/16 [Last Taken Unknown] Multivitamin [One Daily Essential] 1 each PO DAILY 03/19/16 [Last Taken Unknown] Prazosin HCl [Minipress] 5 mg PO DAILY 03/19/16 [Last Taken Unknown] Sucralfate [Carafate] 1 gm PO QID 03/19/16 [Last Taken Unknown] Trolamine Salicylate [Aspercreme] 1 appl TP QID PRN 03/19/16 [Last Taken Unknown ] Acarbose [Precose] 25 mg PO TID 06/15/16 [Last Taken Unknown] Iron Aspgly,Ps/C/Succinic Acid [Ferrex 150 Plus Capsule] 1 each PO TID 06/15/16 [Last Taken Unknown] Januvia 50 mg PO DAILY 06/15/16 [Last Taken Unknown] Pioglitazone HCl [Actos] 15 mg PO DAILY 06/15/16 [Last Taken Unknown] Topiramate [Topamax] 25 mg PO BID 06/15/16 [Last Taken Unknown] Acetaminophen [Tylenol] 650 mg PO QID PRN #1 tab 06/19/16 [Last Taken Unknown] Albuterol Sulfate [Albuterol Sulfate 2.5 MG/0.5ML] 2.5 mg IH Q4H PRN #0 vial.neb 06/19/16 [Last Taken Unknown] Amiodarone HCl [Cordarone] 400 mg PO BID #60 tablet 06/19/16 [Last Taken Unknown ] Insulin NPH Hum/Reg Insulin Hm [Humulin 70-30] 20 unit SC AC 30 Days 06/19/16 [ Last Taken Unknown] Multivitamins [Multivitamin Jaylon] 1 cap PO DAILY capsule 06/19/16 [Last Taken Unknown] Ferrous Sulfate 325 mg PO DAILY 09/05/16 [Last Taken Unknown] Insulin Lispro [Humalog] 0 units SC ACHSINS 30 Days 09/07/16 [Last Taken Unknown ] Nystatin [Mycostatin Powder] 1 appl TP BID #1 btl 09/07/16 [Last Taken Unknown] Pantoprazole Sodium [Protonix] 40 mg PO DAILY #30 tab 09/07/16 [Last Taken Unknown] Insulin Regular, Human [Humulin R] 25 units SC DAILY@0700 09/21/16 [Last Taken Unknown] Exam - Exam Vital Signs: Vital Signs - Last Taken Temp 36.5 C 09/21/16 21:27 Pulse 60 09/21/16 21:27 Resp 22 H 09/21/16 21:27 BP 142/46 09/21/16 21:27 Pulse Ox 94 09/21/16 21:27 Constitutional: Present: Alert, Oriented x3, Cooperative, Well developed, No distress, Elderly, Morbidly obese ENT Exam: Present: moist mucous membranes Eye Exam: bilateral eye: PERRL Neck: Present: full range of motion Back Exam: Present: normal inspection Breasts: Present: Exam deferred Respiratory: Present: chest non-tender, normal breath sounds, no respiratory distress, no accessory muscle use, decreased breath sounds Cardiovascular/Chest: Present: normal peripheral pulses, regular rate, rhythm, no chest tenderness, no JVD, edema - Trace BLLE Peripheral Pulses: dorsalis-pedis (R): 2+, dorsalis-pedis (L): 2+ Abdomen: Present: Normal bowel sounds, soft, nontender, nondistended, no rebound tenderness /Rectal: Present: Exam deferred Extremity: Present: normal range of motion, non-tender, normal inspection, no calf tenderness, normal capillary refill Skin Exam: Present: normal color, warm/dry, no cyanosis Lymphatic: Present: no adenopathy Neurologic: Present: oriented x 3 Appearance: Present: appropriate appearance Eye contact: Present: cooperative, good eye contact Thoughts: Present: normal thought pattern, no apparent hallucination Diagnostic Studies: Laboratory Results WBC 4.5 K/mm3 (4.0-10.5) 09/21/16 17:55 RBC 2.99 M/mm3 (4.2-5.4) L 09/21/16 17:55 Hgb 8.8 gm/dL (12.5-16.0) L 09/21/16 17:55 Hct 31.4 % (37.0-47.0) L 09/21/16 17:55 MCV 105.0 fl (78-100) H 09/21/16 17:55 MCH 29.4 pg (27-31) 09/21/16 17:55 MCHC 28.0 g/dl (32-36) L 09/21/16 17:55 RDW 15.3 % (11.5-14.0) H 09/21/16 17:55 Plt Count 168 K/mm3 (150-450) 09/21/16 17:55 MPV 11.6 fl (6.0-9.5) H 09/21/16 17:55 Immature Gran % (Auto) 1.10 % (0.001-0.429) H 09/21/16 17:55 Immature Gran # (Auto) 0.05 K/mm3 (0.000-0.0310) H 09/21/16 17:55 Neutrophils % 64.8 % (42-75.0) 09/21/16 17:55 Lymphocytes % 17.5 % (20-51) L 09/21/16 17:55 Monocytes % 13.5 % (0.0-9) H 09/21/16 17:55 Eosinophils % 2.4 % (0.0-3.0) 09/21/16 17:55 Basophils % 0.7 % (0.0-1.0) 09/21/16 17:55 Nucleated RBC % 0.0 k/mm3 (0-1) 09/21/16 17:55 Neutrophils # 2.9 K/mm3 (1.3-6.0) 09/21/16 17:55 Lymphocytes # 0.8 k/mm3 (1.5-3.5) L 09/21/16 17:55 Monocytes # 0.6 k/mm3 (0.0-1.0) 09/21/16 17:55 Eosinophils # 0.1 k/mm3 (0.0-0.7) 09/21/16 17:55 Absolute Basophils 0.0 k/mm3 (0.0-0.1) 09/21/16 17:55 PT 10.6 Seconds (9.4-11.4) 09/21/16 17:56 INR (Anticoag Therapy) 1.02 INR (0.90-1.10) 09/21/16 17:56 Sodium 143 mmol/L (132-142) H 09/21/16 17:55 Plasma Sodium 143 mmol/L (130-142) H 09/21/16 17:55 Potassium 3.1 mmol/L (3.4-4.6) L 09/21/16 17:55 Chloride 102 mmol/L (97-106) 09/21/16 17:55 Carbon Dioxide 37.5 mmol/L (24-32.6) H 09/21/16 17:55 Anion Gap 6.6 mmol/L (6.8-13.8) L 09/21/16 17:55 BUN 21 mg/dL (3-23) D 09/21/16 17:55 Creatinine 1.46 mg/dL (0.4-1.4) H 09/21/16 17:55 Est GFR (Non-Af Amer) 38 mL/min (60-130) L 09/21/16 17:55 BUN/Creatinine Ratio 14.4 (9.0-21.6) 09/21/16 17:55 Random Glucose 127 mg/dL (70-110) H 09/21/16 17:55 Lactic Acid, Venous 1.5 mmol/L (0.4-1.9) 09/21/16 20:25 Calcium 8.8 mg/dL (7.9-10.9) 09/21/16 17:55 Calcium Adj for Albumin 9.2 mg/dL (8.4-10.2) 09/21/16 17:55 Total Bilirubin 0.2 mg/dL (0.0-1.1) 09/21/16 17:55 AST 15 U/L (0-48) 09/21/16 17:55 ALT 16 U/L (19-67) L 09/21/16 17:55 Alkaline Phosphatase 94 U/L (50-170) 09/21/16 17:55 Troponin I Less than 0.017 ng/ml (0.00-0.10) 09/21/16 17:55 Total Protein 6.6 gm/dL (6.2-8.2) 09/21/16 17:55 Albumin 3.1 gm/dl (3.4-5.0) L 09/21/16 17:55 Lipase 135 U/L (73-393) 09/21/16 17:55 Urine Color Yellow 09/21/16 19:18 Urine Appearance Slightly cloudy 09/21/16 19:18 Urine pH 6.0 pH (5.0-7.0) 09/21/16 19:18 Ur Specific [place] 1.010 SP.GR. (1.005-1.010) 09/21/16 19:18 Urine Protein Negative mg/dL (NEGATIVE) 09/21/16 19:18 Urine Glucose (UA) 100 mg/dL (NEGATIVE) H 09/21/16 19:18 Urine Ketones Negative mg/dL (NEGATIVE) 09/21/16 19:18 Urine Blood Negative /ul (NEGATIVE) 09/21/16 19:18 Urine Nitrate Negative (NEGATIVE) 09/21/16 19:18 Urine Bilirubin Negative mg/dl (NEGATIVE) 09/21/16 19:18 Urine Urobilinogen Normal EU/dl (NORMAL) 09/21/16 19:18 Ur Leukocyte Esterase 500 /ul (NEGATIVE) H 09/21/16 19:18 Urine RBC None seen /hpf (0-5) 09/21/16 19:18 Urine WBC >50 /hpf (0-5) H 09/21/16 19:18 Ur Epithelial Cells None seen /hpf (0-5) 09/21/16 19:18 Urine Bacteria 3+ (NONE) H 09/21/16 19:18 Urine Culture Comments Culture to follow 09/21/16 19:18 Assessment/Plan - Narrative Narrative: Acute on chronic recurrent UTI- 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 Hypokalemia On adm K+ 3.1 supplemented monitor BMP tomorrow. Diabetes Acc-check and low dose sliding scale insulin Resume home dose of medication Consistent carb diet CHF- stable Monitor I/O and daily weight Resume home dose of medications Chronic anemia- stable On adm hgb 8.8 within pt baseline Chronic weakness Supportive care and safety during hospitalization PT evaluation and potential PT while at home COPD- stable continue with supplemented oxygen and nebulizer Continue home dose of medications. Code status:Full code with restriction VTE ppx:Ambulate and SCD GI ppx:Pepcid and carafate Anticipate discharge home tomorrow and follow up with PCP Time 35 minutes and previous records reviewed. - Assessment/Plan (1) Generalized weakness Problem: Acute (2) Anemia Problem: Chronic (3) UTI (urinary tract infection) Problem: Chronic (4) CHF (congestive heart failure) Problem: Chronic (5) Diabetes mellitus type 2 in obese Problem: Chronic <Abe Castro - Last Filed: 09/22/16 12:54> Immunizations: IMMUNIZATION HX Immunizations Up to Date Yes History of Influenza Vaccine Yes Hx Pneumococcal Vaccination More Information Required Exam - Exam Vital Signs: Vital Signs - Last Taken Temp 37 C 09/22/16 11:20 Pulse 86 09/22/16 11:20 Resp 20 09/22/16 11:20 BP 134/92 09/22/16 11:20 Pulse Ox 94 09/22/16 11:20 Diagnostic Studies: Abnormal Lab Results 09/22/16 Range/Units 05:07 Sodium 143 H (132-142) mmol/L Plasma Sodium 144 H (130-142) mmol/L Carbon Dioxide 35.5 H (24-32.6) mmol/L Anion Gap 6.4 L (6.8-13.8) mmol/L Creatinine 1.55 H (0.4-1.4) mg/dL Est GFR (Non-Af Amer) 35 L (60-130) mL/min Random Glucose 169 H D (70-110) mg/dL Laboratory Results WBC 4.5 K/mm3 (4.0-10.5) 09/21/16 17:55 RBC 2.99 M/mm3 (4.2-5.4) L 09/21/16 17:55 Hgb 8.8 gm/dL (12.5-16.0) L 09/21/16 17:55 Hct 31.4 % (37.0-47.0) L 09/21/16 17:55 MCV 105.0 fl (78-100) H 09/21/16 17:55 MCH 29.4 pg (27-31) 09/21/16 17:55 MCHC 28.0 g/dl (32-36) L 09/21/16 17:55 RDW 15.3 % (11.5-14.0) H 09/21/16 17:55 Plt Count 168 K/mm3 (150-450) 09/21/16 17:55 MPV 11.6 fl (6.0-9.5) H 09/21/16 17:55 Immature Gran % (Auto) 1.10 % (0.001-0.429) H 09/21/16 17:55 Immature Gran # (Auto) 0.05 K/mm3 (0.000-0.0310) H 09/21/16 17:55 Neutrophils % 64.8 % (42-75.0) 09/21/16 17:55 Lymphocytes % 17.5 % (20-51) L 09/21/16 17:55 Monocytes % 13.5 % (0.0-9) H 09/21/16 17:55 Eosinophils % 2.4 % (0.0-3.0) 09/21/16 17:55 Basophils % 0.7 % (0.0-1.0) 09/21/16 17:55 Nucleated RBC % 0.0 k/mm3 (0-1) 09/21/16 17:55 Neutrophils # 2.9 K/mm3 (1.3-6.0) 09/21/16 17:55 Lymphocytes # 0.8 k/mm3 (1.5-3.5) L 09/21/16 17:55 Monocytes # 0.6 k/mm3 (0.0-1.0) 09/21/16 17:55 Eosinophils # 0.1 k/mm3 (0.0-0.7) 09/21/16 17:55 Absolute Basophils 0.0 k/mm3 (0.0-0.1) 09/21/16 17:55 PT 10.6 Seconds (9.4-11.4) 09/21/16 17:56 INR (Anticoag Therapy) 1.02 INR (0.90-1.10) 09/21/16 17:56 Sodium 143 mmol/L (132-142) H 09/22/16 05:07 Plasma Sodium 144 mmol/L (130-142) H 09/22/16 05:07 Potassium 3.9 mmol/L (3.4-4.6) D 09/22/16 05:07 Chloride 105 mmol/L (97-106) 09/22/16 05:07 Carbon Dioxide 35.5 mmol/L (24-32.6) H 09/22/16 05:07 Anion Gap 6.4 mmol/L (6.8-13.8) L 09/22/16 05:07 BUN 21 mg/dL (3-23) 09/22/16 05:07 Creatinine 1.55 mg/dL (0.4-1.4) H 09/22/16 05:07 Est GFR (Non-Af Amer) 35 mL/min (60-130) L 09/22/16 05:07 BUN/Creatinine Ratio 13.5 (9.0-21.6) 09/22/16 05:07 Random Glucose 169 mg/dL (70-110) H D 09/22/16 05:07 Lactic Acid, Venous 1.5 mmol/L (0.4-1.9) 09/21/16 20:25 Calcium 8.9 mg/dL (7.9-10.9) 09/22/16 05:07 Calcium Adj for Albumin 9.2 mg/dL (8.4-10.2) 09/21/16 17:55 Total Bilirubin 0.2 mg/dL (0.0-1.1) 09/21/16 17:55 AST 15 U/L (0-48) 09/21/16 17:55 ALT 16 U/L (19-67) L 09/21/16 17:55 Alkaline Phosphatase 94 U/L (50-170) 09/21/16 17:55 Troponin I Less than 0.017 ng/ml (0.00-0.10) 09/21/16 17:55 Total Protein 6.6 gm/dL (6.2-8.2) 09/21/16 17:55 Albumin 3.1 gm/dl (3.4-5.0) L 09/21/16 17:55 Lipase 135 U/L (73-393) 09/21/16 17:55 Urine Color Yellow 09/21/16 19:18 Urine Appearance Slightly cloudy 09/21/16 19:18 Urine pH 6.0 pH (5.0-7.0) 09/21/16 19:18 Ur Specific [place] 1.010 SP.GR. (1.005-1.010) 09/21/16 19:18 Urine Protein Negative mg/dL (NEGATIVE) 09/21/16 19:18 Urine Glucose (UA) 100 mg/dL (NEGATIVE) H 09/21/16 19:18 Urine Ketones Negative mg/dL (NEGATIVE) 09/21/16 19:18 Urine Blood Negative /ul (NEGATIVE) 09/21/16 19:18 Urine Nitrate Negative (NEGATIVE) 09/21/16 19:18 Urine Bilirubin Negative mg/dl (NEGATIVE) 09/21/16 19:18 Urine Urobilinogen Normal EU/dl (NORMAL) 09/21/16 19:18 Ur Leukocyte Esterase 500 /ul (NEGATIVE) H 09/21/16 19:18 Urine RBC None seen /hpf (0-5) 09/21/16 19:18 Urine WBC >50 /hpf (0-5) H 09/21/16 19:18 Ur Epithelial Cells None seen /hpf (0-5) 09/21/16 19:18 Urine Bacteria 3+ (NONE) H 09/21/16 19:18 Urine Culture Comments Culture to follow 09/21/16 19:18 Assessment/Plan - Narrative Narrative: I reviewed the record and examined the patient. I agree with the assessment and plan. I personally directed all of our nurse practitioner hospitalist care for this patient. She is a little dizzy this morning, but otherwise is better. He should really be using a walker at home, but there isn't room where she lives, so is using a new 3 pronged cane in the house. She has been advised to use a walker whenever outside of the house. We will send her home on cefuroxime twice daily.
[2016-09-21] MEDS ORDERED: ALBUTEROL SULFATE 2.5 MG/3 ML VIAL.NEB IH SCH (23:00)
[2016-09-21] MEDS ORDERED: ACETAMINOPHEN 325 MG TABLET PO PRN (23:16)
[2016-09-21] MEDS ORDERED: TROLAMINE SALICYLATE 90 APPL TUBE TP PRN (23:16)
[2016-09-21] MEDS ORDERED: ALBUTEROL SULFATE 200 PUFF INHALER IH PRN (23:16)
[2016-09-21] MEDS ORDERED: FUROSEMIDE 40 MG TABLET PO SCH (23:30)
[2016-09-22 05:16] LABS: Anion Gap 6.4 mmol/L (6.8-13.8); BUN/Creatinine Ratio 13.5 (9.0-21.6); Calcium * 8.9 mg/dL (7.9-10.9); Carbon Dioxide 35.5 mmol/L (24-32.6); Estimated Creat Clear 26.7; Potassium 3.9 mmol/L (3.4-4.6)
[2016-09-22] MEDS: METOCLOPRAMIDE HCL 5 MG TABLET PO SCH ×2 (06:26→11:33)
[2016-09-22] MEDS ORDERED: INSULIN REGULAR, HUMAN 100 UNITS/ML VIAL SC SCH (07:00)
[2016-09-22] MEDS ORDERED: PANTOPRAZOLE SODIUM 40 MG TABLET.EC PO SCH (07:00)
[2016-09-22] MEDS ORDERED: LEVOTHYROXINE SODIUM 25 MCG TABLET PO SCH (07:00)
[2016-09-22] MEDS: HUM INSULIN NPH/REG INSULIN HM 100 UNIT/ML VIAL SC SCH ×2 (07:09→11:33)
[2016-09-22] MEDS: SUCRALFATE 1 G TABLET PO SCH ×2 (08:21→12:29)
[2016-09-22] MEDS ORDERED: sitaGLIPtin PHOSPHATE 50 MG TABLET PO SCH (09:00)
[2016-09-22] MEDS ORDERED: FERROUS SULFATE 325 MG TABLET PO SCH (09:00)
[2016-09-22] MEDS ORDERED: ROSUVASTATIN CALCIUM 10 MG TABLET PO SCH (09:00)
[2016-09-22] MEDS ORDERED: PIOGLITAZONE HCL 15 MG TABLET PO SCH (09:00)
[2016-09-22] MEDS ORDERED: NYSTATIN 15 APPL BTL TP SCH (09:00)
[2016-09-22] MEDS ORDERED: MULTIVITAMINS 1 TAB TAB.CHEW PO SCH (09:00)
[2016-09-22] MEDS ORDERED: HYDROPHILIC OINTMENT 454 APPL JAR TP SCH (09:00)
[2016-09-22] MEDS ORDERED: FUROSEMIDE 80 MG TABLET PO SCH (09:00)
[2016-09-22] MEDS ORDERED: LOSARTAN POTASSIUM 50 MG TABLET PO SCH (09:00)
[2016-09-22] MEDS ORDERED: AMMONIUM LACTATE 225 APPL BTL TP SCH (09:00)
[2016-09-22] MEDS ORDERED: MULTIVITAMINS 1 CAP CAPSULE PO SCH (09:00)
[2016-09-22] MEDS ORDERED: FAMOTIDINE 20 MG TABLET PO SCH (09:00)
[2016-09-22] MEDS ORDERED: PRAZOSIN HCL 5 MG CAPSULE PO SCH (09:00)
[2016-09-22] MEDS ORDERED: ATORVASTATIN CALCIUM 40 MG TABLET PO SCH (09:00)
[2016-09-22] MEDS ORDERED: AMIODARONE HCL 200 MG TABLET PO SCH (09:00)
[2016-09-22] MEDS ORDERED: METOPROLOL TARTRATE 100 MG TABLET PO SCH (09:00)
[2016-09-22] MEDS ORDERED: TOPIRAMATE 50 MG TABLET PO SCH (09:00)
[2016-09-22] MEDS: ALBUTEROL SULFATE/IPRATROPIUM 3 ML NEBU IH SCH ×3 (09:20→14:33)
[2016-09-22] MEDS: ALBUTEROL SULFATE 2.5 MG/0.5 ML VIAL.NEB IH PRN ×2 (09:22→14:33)
[2016-09-22 11:21] VITALS: BP 134/92
--- NOTE | 2016-09-22 13:10 | DS ---
(1) Acute renal failure superimposed on stage 3 chronic kidney disease Problem: Acute (2) Generalized weakness Problem: Acute (3) Urinary retention with incomplete bladder emptying Problem: Chronic (4) Urinary tract infection Problem: Acute Qualifiers: Urinary tract infection type: acute cystitis Hematuria presence: with hematuria Qualified Code(s): N30.01 - Acute cystitis with hematuria (5) Anemia Problem: Chronic Qualifiers: (6) Atrial fibrillation Problem: Chronic Qualifiers: Atrial fibrillation type: chronic Qualified Code(s): I48.2 - Chronic atrial fibrillation (7) CHF (congestive heart failure) Problem: Chronic Qualifiers: Congestive heart failure type: unspecified congestive heart failure type Congestive heart failure chronicity: unspecified congestive heart failure chronicity Qualified Code(s): I50.9 - Heart failure, unspecified (8) Chronic respiratory failure with hypoxia and hypercapnia Problem: Chronic (9) Diabetes mellitus type 2 in obese Problem: Chronic (10) Fibromyalgia Problem: Chronic (11) GERD (gastroesophageal reflux disease) Problem: Chronic Qualifiers: Esophagitis presence: without esophagitis Qualified Code(s): K21.9 - Gastro -esophageal reflux disease without esophagitis (12) Gout Problem: Chronic Qualifiers: Gout site: multiple sites Chronicity: chronic Presence of tophus: without tophus (13) Headache Problem: Chronic Qualifiers: Headache chronicity pattern: chronic headache Intractability: not intractable (14) Hyperlipidemia Problem: Chronic Qualifiers: Hyperlipidemia type: Mixed hyperlipidemia Qualified Code(s): E78.2 - Mixed hyperlipidemia (15) Hypertension Problem: Chronic Qualifiers: Hypertension type: essential hypertension Qualified Code(s): I10 - Essential (primary) hypertension (16) Hypothyroidism Problem: Chronic Qualifiers: Hypothyroidism type: acquired Qualified Code(s): E03.9 - Hypothyroidism, unspecified (17) Morbid obesity with BMI of 50.0-59.9, adult Problem: Chronic (18) JACINTO (obstructive sleep apnea) Problem: Chronic (19) Rectovaginal fistula Problem: Chronic (20) Venous insufficiency of both lower extremities Problem: Chronic (21) Venous stasis dermatitis Problem: Chronic Qualifiers: Laterality: bilateral Description of Stay: Started on IV Rocephin after cultures. Improving. Labs stable. Will be sent home on oral Ceftin. Vitals stable. Advised to use cane in the house and walker at all other times. Procedures Performed: none Discharge Disposition: Home self care Disposition: Home self-care Condition: Stable Discharge Activity: Activity as tolerated Discharge Diet: Consistent carbs Referrals: Abe Castro MD [Primary Care Provider] - Problem Oriented Discharge Instructions to Patient/Family: Urinary Tract Infection, Adult, [place] Additional Patient Instructions (free text): TCM appt. Appt with Dr. Metz 1 week. CBC BMP 1 week. Finger stick blood sugar before meals and at bedtime. Cane in the house, walker at all other times. Oxygen by nasal cannula at 2 liters per minute continuously. Prescriptions (Any new or edited meds): Cefuroxime Axetil [Cefuroxime] 500 mg PO BID #30 tablet Insulin Lispro [Humalog] 1 units SC ACHSINS #1 vial Complete Home Medications List: Complete Home Medication List: Albuterol Sulfate [Ventolin HFA] 2 puff IH Q4H PRN 03/19/16 Albuterol Sulfate/Ipratropium [Duoneb 2.5-0.5MG/3ML Soln] 3 ml IH QID 03/19/16 Ammonium Lactate [Amlactin] 1 appl TP BID 03/19/16 Atorvastatin Calcium 40 mg PO DAILY 03/19/16 Carbinoxamine Maleate [Arbinoxa] 4 mg PO TID 03/19/16 Famotidine 20 mg PO BID 03/19/16 Furosemide [Lasix] 80 mg PO BID 03/19/16 Hydrophilic Ointment [Aquaphilic Ointment] 1 appl TP BID 03/19/16 Levothyroxine Sodium [Synthroid] 25 mcg PO DAILY 03/19/16 Losartan Potassium [Cozaar] 100 mg PO DAILY 03/19/16 Metoclopramide HCl [Reglan] 5 mg PO ACHS 03/19/16 Metoprolol Tartrate 100 mg PO BID 03/19/16 Multivitamin [One Daily Essential] 1 each PO DAILY 03/19/16 Prazosin HCl [Minipress] 5 mg PO DAILY 03/19/16 Sucralfate [Carafate] 1 gm PO QID 03/19/16 Trolamine Salicylate [Aspercreme] 1 appl TP QID PRN 03/19/16 Acarbose [Precose] 25 mg PO TID 06/15/16 Iron Aspgly,Ps/C/Succinic Acid [Ferrex 150 Plus Capsule] 1 each PO TID 06/15/16 Januvia 50 mg PO DAILY 06/15/16 Pioglitazone HCl [Actos] 15 mg PO DAILY 06/15/16 Topiramate [Topamax] 25 mg PO BID 06/15/16 Acetaminophen [Tylenol] 650 mg PO QID PRN #1 tab 06/19/16 Albuterol Sulfate [Albuterol Sulfate 2.5 MG/0.5ML] 2.5 mg IH Q4H PRN #0 vial.neb 06/19/16 Amiodarone HCl [Cordarone] 400 mg PO BID #60 tablet 06/19/16 Insulin NPH Hum/Reg Insulin Hm [Humulin 70-30] 20 unit SC AC 30 Days 06/19/16 Multivitamins [Multivitamin Jaylon] 1 cap PO DAILY capsule 06/19/16 Ferrous Sulfate 325 mg PO DAILY 09/05/16 Nystatin [Mycostatin Powder] 1 appl TP BID #1 btl 09/07/16 Pantoprazole Sodium [Protonix] 40 mg PO DAILY #30 tab 09/07/16 Insulin Regular, Human [Humulin R] 25 units SC DAILY@0700 09/21/16 Cefuroxime Axetil [Cefuroxime] 500 mg PO BID #30 tablet 09/22/16 Insulin Lispro [Humalog] 1 units SC ACHSINS #1 vial 09/22/16
[2016-09-22] MEDS ORDERED: ACARBOSE 25 MG PO SCH (17:00)
[2016-09-22] MEDS ORDERED: INSULIN LISPRO 100 UNITS/ML VIAL SC SCH (17:00)
[2016-09-22] MEDS ORDERED: CARBINOXAMINE MALEATE 4 MG PO SCH (17:00)
[2016-09-22] MEDS ORDERED: [UNRECOGNIZED DRUG - OTHER] PO SCH (17:00)
== END 2016-09-22 15:21 | disposition home or self-care (01) ==
LOC: ER 17:08 → MS 20:08
PROVIDERS: ADMIT Nurse Practitioner; ATTEND Allergy & Immunology
DX: N39.0 Urinary tract infection, site not specified (principal); B96.20 Unspecified Escherichia coli [E. coli] as the cause of diseases classified elsewhere; N17.8 Other acute kidney failure; I12.9 Hypertensive chronic kidney disease with stage 1 through stage 4 chronic kidney disease, or unspecified chronic kidney disease; N18.3 Chronic kidney disease, stage 3 (moderate); N30.01 Acute cystitis with hematuria; R33.8 Other retention of urine; E11.9 Type 2 diabetes mellitus without complications; Z79.4 Long term (current) use of insulin; D63.8 Anemia in other chronic diseases classified elsewhere; I48.2 Chronic atrial fibrillation; I50.9 Heart failure, unspecified; M79.7 Fibromyalgia; K21.9 Gastro-esophageal reflux disease without esophagitis; E78.5 Hyperlipidemia, unspecified; E03.9 Hypothyroidism, unspecified; E66.01 Morbid (severe) obesity due to excess calories; Z68.43 Body mass index [BMI] 50.0-59.9, adult; N82.3 Fistula of vagina to large intestine; I87.2 Venous insufficiency (chronic) (peripheral); Z87.891 Personal history of nicotine dependence
CPT/HCPCS: 36415; 71020; 80048; 80053; 81001; 83605; 83690; 84484; 85025; 85610; 87040; 87081; 87086; 93005; 94640; 96365; 96366; 96372; 97162; 99284; G0378; G8978; G8979; G8980

== ENCOUNTER 2017-06-14 18:45 | Observation (INO) | payer MEDICARE ==
[2017-06-14] MEDS ORDERED: NORMAL SALINE 1,000 ML IV ONE (18:57)
--- NOTE | 2017-06-14 19:18 | ERNOTE ---
Medical Problem HPI - Narrative Date of Service: 06/14/17 - General Chief Complaint: General Assessment Time Seen by Provider: 06/14/17 18:56 Source: patient Exam Limitations: no limitations - Immun/Allergies/Home Medications Immunizations: IMMUNIZATION HX Immunizations Up to Date Yes History of Influenza Vaccine Yes Hx Pneumococcal Vaccination Yes Allergies/Adverse Reactions: Allergies cat dander Allergy (Verified 06/14/17 19:02) fluticasone propionate [From Advair Diskus] Allergy (Verified 06/14/17 19:02) levofloxacin [From Levaquin] Allergy (Verified 06/14/17 19:02) meperidine HCl [From Demerol] Allergy (Verified 06/14/17 19:02) metoclopramide HCl [From Reglan] Allergy (Verified 06/14/17 19:02) NSAIDS (Non-Steroidal Anti-Inflamma Allergy (Verified 06/14/17 19:02) procaine HCl [From Novocain] Allergy (Verified 06/14/17 19:02) salmeterol xinafoate [From Advair Diskus] Allergy (Verified 06/14/17 19:02) tramadol Allergy (Verified 06/14/17 19:02) Home Medications: HOME MEDICATIONS Albuterol Sulfate [Ventolin HFA] 2 puff IH Q4H PRN 03/19/16 [Last Taken Unknown] Albuterol Sulfate/Ipratropium [Duoneb 2.5-0.5MG/3ML Soln] 3 ml IH QID 03/19/16 [ Last Taken Unknown] Ammonium Lactate [Amlactin] 1 appl TP BID 03/19/16 [Last Taken Unknown] Atorvastatin Calcium 40 mg PO DAILY 03/19/16 [Last Taken Unknown] Famotidine 20 mg PO BID 03/19/16 [Last Taken Unknown] Furosemide [Lasix] 80 mg PO BID 03/19/16 [Last Taken Unknown] Hydrophilic Ointment [Aquaphilic Ointment] 1 appl TP BID 03/19/16 [Last Taken Unknown] Levothyroxine Sodium [Synthroid] 50 mcg PO DAILY 03/19/16 [Last Taken Unknown] Losartan Potassium [Cozaar] 50 mg PO DAILY 03/19/16 [Last Taken Unknown] Metoprolol Tartrate 100 mg PO BID 03/19/16 [Last Taken Unknown] Multivitamin [One Daily Essential] 1 each PO DAILY 03/19/16 [Last Taken Unknown] Sucralfate [Carafate] 1 gm PO QID 03/19/16 [Last Taken Unknown] Trolamine Salicylate [Aspercreme] 1 appl TP QID PRN 03/19/16 [Last Taken Unknown ] Acarbose [Precose] 25 mg PO TID 06/15/16 [Last Taken Unknown] Pioglitazone HCl [Actos] 15 mg PO DAILY 06/15/16 [Last Taken Unknown] Topiramate [Topamax] 25 mg PO BID 06/15/16 [Last Taken Unknown] Albuterol Sulfate [Albuterol Sulfate 2.5 MG/0.5ML] 2.5 mg IH Q4H PRN #0 vial.neb 06/19/16 [Last Taken Unknown] Amiodarone HCl [Cordarone] 400 mg PO BID #60 tablet 06/19/16 [Last Taken Unknown ] Ferrous Sulfate 325 mg PO DAILY 09/05/16 [Last Taken Unknown] Nystatin [Mycostatin Powder] 1 appl TP BID #1 btl 09/07/16 [Last Taken Unknown] Insulin Regular, Human [Humulin R] 60 units SC DAILY@0700 09/21/16 [Last Taken Unknown] Acarbose [Precose] 50 mg PO TID 06/14/17 [Last Taken Unknown] Acetaminophen [Tylenol] 1,000 mg PO QID PRN 06/14/17 [Last Taken Unknown] Biotin 20,000 mcg PO DAILY 06/14/17 [Last Taken Unknown] Kit Cit/Mag/D3/Zn/Emblem Maker/Abdias/Bor [Citracal-Vit D + Magnesium Tab] 2 each PO BID [Last Taken Unknown] Carbidopa/Levodopa Cr 50/200 [Sinemet Cr 50/200] 1 tab PO QID 06/14/17 [Last Taken Unknown] Chlorhex Gl/Isopropyl Alcohol [Hibiclens 4%] 1 appl TP DAILY 06/14/17 [Last Taken Unknown] Cyproheptadine HCl 4 mg PO BID 06/14/17 [Last Taken Unknown] Insulin NPH Hum/Reg Insulin Hm [Humulin 70-30] 26 unit SC AC 06/14/17 [Last Taken Unknown] Insulin Regular Human Rec [Novolin R] 25 unit SQ DAILY@1130 06/14/17 [Last Taken Unknown] Omeprazole 40 mg PO TID 06/14/17 [Last Taken Unknown] Potassium Chloride [Klor-Con 10] 20 meq PO QID 06/14/17 [Last Taken Unknown] Rivaroxaban [Xarelto] 15 mg PO DAILY 06/14/17 [Last Taken Unknown] Tamsulosin HCl 0.4 mg PO DAILY 06/14/17 [Last Taken Unknown] Topiramate [Trokendi Xr] 25 mg PO BID 06/14/17 [Last Taken Unknown] - History of Present History Narrative: Pt. comes in with c/o fatigue, malaise, dizziness, weakness, increase SOB, and increased tremors. Pt. denies any fevers, recent illnesses, or injuries. Pt. saw her PCP today who ordered labs that showed a critically low hemaglobin. Pt. denies any alleviating factors or prehospital treatment but states that activity exacerbates the symptoms. Review of Systems - Review of Systems Constitutional: Present: chills, weakness, fatigue, malaise. Absent: fever EYE: Present: no symptoms reported. Absent: blurred vision, vision changes ENT: Present: no symptoms reported. Absent: ear pain, ear discharge, nose pain , nose congestion, nasal drainage, sore throat Respiratory: Present: shortness of breath, orthopnea. Absent: cough, wheezing Cardiology: Present: edema. Absent: chest pain, palpitations Gastrointestinal/Abdominal: Present: nausea, diarrhea, abdominal pain Genitourinary: Present: no symptoms reported. Absent: frequency, decreased urinary output Musculoskeletal: Present: no symptoms reported. Absent: back pain, joint pain Skin: Present: no symptoms reported. Absent: rash, change in color Neurological: Present: dizziness/light-headedness, weakness Hematologic/Lymphatic: Present: easy bruising, easy bleeding All Other Systems: All systems neg except as marked - Patient's Past Medical History Patient History - Medical: Anemia, Anesthesia Reaction, Anxiety, Arthritis, Cataracts, Diabetes Type 2, Diabetes Type 2 Insulin Dependent, Fibromyalgia, GERD, Hypothyroidism, Migraines, Obesity, Osteoarthritis, Osteoporosis, Renal Disease, UTI'S Patient History - Cardiac/Respiratory: Coronary Heart Disease, CHF, COPD, Home O2 Use, Sleep Apnea Patient History - Cancer: No Hx of Cancer Patient History - Surgical Procedures: Appendectomy, Cholecystectomy, Coronary Bypass Surgery, D & C, EGD, Hysterectomy, Total Knee Replacement, Other Patient History - Other: None LMP (females 10-50): Menopausal - Family History Mother Family History - Medical: , Diabetes Type 2 Insulin Dependent Family History - Cardiac/Respiratory: Arrhythmias Family History - Cancer: No pertinent family hx Father Family History - Medical: , Diabetes Type 2 Insulin Dependent Family History - Cardiac/Respiratory: No pertinent hx Family History - Cancer: No pertinent family hx Grandmother-Paternal Family History - Medical: Family History - Cardiac/Respiratory: History Unknown Family History - Cancer: History Unknown Grandfather-Paternal Family History - Medical: , No pertinent hx Family History - Cardiac/Respiratory: No pertinent hx Family History - Cancer: No pertinent family hx Grandfather-Maternal Family History - Medical: , No pertinent hx Family History - Cardiac/Respiratory: CHF, Myocardial Infarction Family History - Cancer: No pertinent family hx Grandmother-Maternal Family History - Medical: , No pertinent hx Family History - Cardiac/Respiratory: Myocardial Infarction Family History - Cancer: No pertinent family hx Brother Family History - Medical: , No pertinent hx Family History - Cardiac/Respiratory: No pertinent hx Family History - Cancer: No pertinent family hx Sister Family History - Medical: Family History - Cardiac/Respiratory: No pertinent hx Family History - Cancer: No pertinent family hx - Social History Living Situations: home Abuse History: No History of abuse Psych History: Hx of Anxiety Smoking Status: Former smoker Have you smoked in the past 12 months: No Do you dip or chew tobacco: No Alcohol Use: none Drug Use: none - Immunizations Immunizations Up to Date: Yes Hx Pneumococcal Vaccination: Yes History of Influenza Vaccine: Yes Physical Exam - Physical Exam General Appearance: Present: wd/wn, alert, no apparent distress Head Exam: Present: normal inspection, no evidence of injury, no tenderness w palpation Eye Exam: Normal inspection: bilateral Ears, Nose, Throat: Present: normal ENT inspection, normal pharynx Neck: Present: normal inspection, nontender, supple, full range of motion. Absent: lymphadenopathy (R), lymphadenopathy (L) Respiratory: Present: no respiratory distress, no accessory muscle use, chest nontender, decreased breath sounds Cardiovascular/Chest: Present: normal peripheral pulses, bradycardia, systolic murmur Gastrointestinal/Abdominal: Present: normal bowel sounds, nondistended, soft, no organomegaly, tenderness - LUQ Back Exam: Present: normal inspection, normal range of motion, no CVA tenderness , no vertebral tenderness Extremity Exam: Present: non-tender, normal range of motion, extremity edema - + 3 pitting Neurological Exam: Present: alert, oriented, normal mood/affect, no motor/ sensory deficits, other - essential tremor Skin Exam: Present: cool/dry, pallor ED Progress - Date and Time Seen: Date and Time: 06/14/17 20:26 Discussed with Jodi and she accepts pt. for admission - Results and Orders Patient's Lab Results:: I have reviewed the patient's lab results. - Vital Signs Patient's Vital Signs:: I have reviewed the patient's vital signs. Vital Signs: Vital Signs 06/14/17 18:46 Temperature 36.7 C Pulse Rate 60 Respiratory 18 Rate Blood Pressure 110/62 O2 Sat by Pulse 92 Oximetry - EKG EKG: RBBB, other - Sinus Mauro EKG read: Interp. by me - X-Ray X-Ray #1 X-Ray: abdomen Interpretation: Interp. by me X-ray Comments: mild stool retention, no free air. - Progress/Reassessment Chief Complaint: General Assessment Progress:: Unchanged Departure Clinical Impression: Gastrointestinal hemorrhage, Generalized weakness Anemia Qualifiers: Anemia type: iron deficiency Iron deficiency anemia type: chronic blood loss Qualified Code(s): D50.0 - Iron deficiency anemia secondary to blood loss ( chronic) Acute renal failure superimposed on stage 3 chronic kidney disease Qualifiers: Acute renal failure type: unspecified Qualified Code(s): N17.9 - Acute kidney failure, unspecified; N18.3 - Chronic kidney disease, stage 3 (moderate); N18.3 - Chronic kidney disease, stage 3 (moderate) - Departure Disposition: [facility] Condition: Serious Referrals: Nikolas Fish DO [Primary Care Provider] -
[2017-06-14] MEDS ORDERED: FUROSEMIDE 10 MG/ML VIAL IV ONE (22:00)
--- NOTE | 2017-06-14 22:25 | HP ---
Chief Complaint - Chief Complaint Date of Service: 06/14/17 Time of Service: 22:14 Chief Complaint: Fatigue History of Present Illness: 71 years old white female adm to the hospital with hgb 6.7 and reports of fatigue. PMH significant for Anemia Afib ( on Xarelto), COPD, CHF and hypothyriodism. Pt stated she have been feeling very tired and week for a very long time. She denies melena, hematoemesis , nausea or vomiting.She recently switched provider and was seen today in office with Dr Fish. He obtained labs and did a full work up. She was later called by the ER to come in because her hgb/ Hct 6.7/ 24.7 and need blood transfusion. 09/10 previous Hgb/ Hct 8.6/29 -- -> Bun/Cre 21/1.55---> BNP 405. This adm Bun/Cre 46/2.52---> BNP 1189 close to her baseline. pt is dependent on oxygen at home but her shortness of breath and edema is relatively stable. In ER she was started on 1UPRBC transfusion and 1L NS bolus. X-Ray ABD: incidental left lower lobe pulmonary opacity with potential small left side pleural fluid. Correlate can agree for pneumonia and CXR pending. plan of care discussed with pt she verbalized understanding and agrees. - Patient's Past Medical History Patient History - Medical: Anemia - Gi bleed, Anesthesia Reaction, Anxiety, Arthritis, Cataracts, Diabetes Type 2, Diabetes Type 2 Insulin Dependent, Fibromyalgia, GERD, Hypothyroidism, Migraines, Obesity, Osteoarthritis, Osteoporosis, Renal Disease, UTI'S Patient History - Cardiac/Respiratory: Coronary Heart Disease, CHF, COPD, Home O2 Use, Sleep Apnea Patient History - Cancer: No Hx of Cancer Patient History - Surgical Procedures: Appendectomy, Cholecystectomy, Coronary Bypass Surgery, D & C, EGD, Hysterectomy, Total Knee Replacement, Other Patient History - Other: None LMP (females 10-50): Menopausal - Family History Mother Family History - Medical: , Diabetes Type 2 Insulin Dependent Family History - Cardiac/Respiratory: Arrhythmias Family History - Cancer: No pertinent family hx Father Family History - Medical: , Diabetes Type 2 Insulin Dependent Family History - Cardiac/Respiratory: No pertinent hx Family History - Cancer: No pertinent family hx Grandmother-Paternal Family History - Medical: Family History - Cardiac/Respiratory: History Unknown Family History - Cancer: History Unknown Grandfather-Paternal Family History - Medical: , No pertinent hx Family History - Cardiac/Respiratory: No pertinent hx Family History - Cancer: No pertinent family hx Grandfather-Maternal Family History - Medical: , No pertinent hx Family History - Cardiac/Respiratory: CHF, Myocardial Infarction Family History - Cancer: No pertinent family hx Grandmother-Maternal Family History - Medical: , No pertinent hx Family History - Cardiac/Respiratory: Myocardial Infarction Family History - Cancer: No pertinent family hx Brother Family History - Medical: , No pertinent hx Family History - Cardiac/Respiratory: No pertinent hx Family History - Cancer: No pertinent family hx Sister Family History - Medical: Family History - Cardiac/Respiratory: No pertinent hx Family History - Cancer: No pertinent family hx - Social History Living Situations: spouse Abuse History: No History of abuse Psych History: Hx of Anxiety Smoking Status: Former smoker Have you smoked in the past 12 months: No Do you dip or chew tobacco: No Smoking Start Date: 06/14/58 Smoking Stop Date: 06/14/00 Patient requests Smoking Cessation Consult: No Initiate information on Smoking Cessation: No Alcohol Use: none Drug Use: none - Immunizations Immunizations Up to Date: Yes Hx Pneumococcal Vaccination: Yes History of Influenza Vaccine: Yes Review Of Systems (GEN) - Review of Systems Generalized/Overall Review: Present: Weakness, Fatigue EENTM: Present: No Symptoms Reported Respiratory: Present: Cough - Thick brown sputum Cardiac: Present: No Symptoms Reported Abdominal: Present: No Symptoms Reported Genitourinary: Present: No Symptoms Reported Musculoskeletal: Present: No Symptoms Reported, Joint Pain Neurological: Present: No Symptoms Reported Skin: Present: No Symptoms Reported Endocrine: Present: No Symptoms Reported Immunizations: IMMUNIZATION HX Immunizations Up to Date Yes History of Influenza Vaccine Yes Hx Pneumococcal Vaccination Yes Allergies/Adverse Reactions: Allergies Allergy/AdvReac Type Severity Reaction Status Date / Time cat dander Allergy Verified 06/14/17 19:02 fluticasone propionate Allergy Verified 06/14/17 19:02 [From Advair Diskus] levofloxacin [From Levaquin] Allergy Verified 06/14/17 19:02 meperidine HCl [From Demerol] Allergy Verified 06/14/17 19:02 metoclopramide HCl Allergy Verified 06/14/17 19:02 [From Reglan] NSAIDS (Non-Steroidal Allergy Verified 06/14/17 19:02 Anti-Inflamma procaine HCl [From Novocain] Allergy Verified 06/14/17 19:02 salmeterol xinafoate Allergy Verified 06/14/17 19:02 [From Advair Diskus] tramadol Allergy Verified 06/14/17 19:02 Home Medications: HOME MEDICATIONS Albuterol Sulfate [Ventolin HFA] 2 puff IH Q4H PRN 03/19/16 [Last Taken Unknown] Albuterol Sulfate/Ipratropium [Duoneb 2.5-0.5MG/3ML Soln] 3 ml IH QID 03/19/16 [ Last Taken Unknown] Atorvastatin Calcium 40 mg PO DAILY 03/19/16 [Last Taken Unknown] Famotidine 20 mg PO BID 03/19/16 [Last Taken Unknown] Furosemide [Lasix] 80 mg PO BID 03/19/16 [Last Taken Unknown] Hydrophilic Ointment [Aquaphilic Ointment] 1 appl TP BID 03/19/16 [Last Taken Unknown] Levothyroxine Sodium [Synthroid] 50 mcg PO DAILY 03/19/16 [Last Taken Unknown] Metoprolol Tartrate 100 mg PO BID 03/19/16 [Last Taken Unknown] Multivitamin [One Daily Essential] 1 each PO DAILY 03/19/16 [Last Taken Unknown] Sucralfate [Carafate] 1 gm PO QID 03/19/16 [Last Taken Unknown] Trolamine Salicylate [Aspercreme] 1 appl TP QID PRN 03/19/16 [Last Taken Unknown ] Acarbose [Precose] 25 mg PO TID 06/15/16 [Last Taken Unknown] Pioglitazone HCl [Actos] 15 mg PO DAILY 06/15/16 [Last Taken Unknown] Ferrous Sulfate 325 mg PO DAILY 09/05/16 [Last Taken Unknown] Acetaminophen [Tylenol] 1,000 mg PO QID PRN 06/14/17 [Last Taken Unknown] Amiodarone HCl [Cordarone] 400 mg PO DAILY 06/14/17 [Last Taken Unknown] Biotin 20,000 mcg PO DAILY 06/14/17 [Last Taken Unknown] Kit Cit/Mag/D3/Zn/Compressor Station Chief Engineer/Abdias/Bor [Citracal-Vit D + Magnesium Tab] 2 each PO BID [Last Taken Unknown] Carbidopa/Levodopa Cr 50/200 [Sinemet Cr 50/200] 1 tab PO QID 06/14/17 [Last Taken Unknown] Ciprofloxacin HCl [Cipro] 500 mg PO DAILY 06/14/17 [Last Taken Unknown] Fluconazole [Diflucan] 100 mg PO DAILY 06/14/17 [Last Taken Unknown] Insulin NPH Hum/Reg Insulin Hm [Humulin 70-30] 0 unit SC AC 06/14/17 [Last Taken Unknown] Insulin Regular Human Rec [Novolin R] 0 unit SQ BID 06/14/17 [Last Taken Unknown ] L.acidoph,Paracasei, B.lactis [Probiotic] 1 each PO DAILY 06/14/17 [Last Taken Unknown] Nystatin [Mycostatin Powder] 1 appl TP BID PRN 06/14/17 [Last Taken Unknown] Omeprazole 40 mg PO DAILY 06/14/17 [Last Taken Unknown] Potassium Chloride [Klor-Con 10] 20 meq PO QID 06/14/17 [Last Taken Unknown] Rivaroxaban [Xarelto] 15 mg PO DAILY 06/14/17 [Last Taken Unknown] Tamsulosin HCl 0.4 mg PO DAILY 06/14/17 [Last Taken Unknown] Topiramate [Trokendi Xr] 25 mg PO BID 06/14/17 [Last Taken Unknown] metroNIDAZOLE [Flagyl] 500 mg PO DAILY 06/14/17 [Last Taken Unknown] Exam - Exam Vital Signs: Vital Signs - Last Taken Temp 37.0 C 06/14/17 21:13 Pulse 52 L 06/14/17 21:13 Resp 18 06/14/17 21:13 BP 135/81 06/14/17 21:13 Pulse Ox 100 06/14/17 21:13 Constitutional: Present: Alert, Oriented x3, Cooperative, No distress, Elderly, Morbidly obese ENT Exam: Present: hearing grossly normal, hard of hearing Eye Exam: bilateral eye: normal inspection Neck: Present: full range of motion Back Exam: Present: normal inspection Breasts: Present: Exam deferred Respiratory: Present: chest non-tender, normal breath sounds, no respiratory distress, no accessory muscle use Cardiovascular/Chest: Present: normal peripheral pulses, regular rate, rhythm, no chest tenderness, no gallop, edema - trace Peripheral Pulses: dorsalis-pedis (R): 2+, dorsalis-pedis (L): 2+ Abdomen: Present: Normal bowel sounds, soft, nontender, nondistended, no rebound tenderness /Rectal: Present: Exam deferred Extremity: Present: normal range of motion, non-tender, normal inspection, no calf tenderness, lower extremity edema Skin Exam: Present: warm/dry Neurologic: Present: oriented x 3 Appearance: Present: appropriate appearance Eye contact: Present: cooperative, good eye contact Thoughts: Present: normal thought pattern Diagnostic Studies: Laboratory Results B-Natriuretic Peptide 1189 pg/mL (5-325) H 06/14/17 19:01 Blood Type O Positive 06/14/17 19:10 Antibody Screen Negative 06/14/17 19:10 Crossmatch See Detail 06/14/17 19:10 X-Ray ABD: incidental left lower lobe pulmonary opacity with potential small left side pleural fluid. Correlate can agree for pneumonia. Assessment/Plan - Narrative Narrative: Chronic Anemia with acute exacerbation secondary to UGI bleeding On adm H/H 6.7/24.7 09/10 previous Hgb/ Hct 8.6/29 On adm Bun 46 Lasix 20mg x1 after 1uPRBC transfusion and H/H 1h post occult blood Positive Continue with protonix Iron study WNL 09/07/16 Dr Singh saw pt she was treated conservatively Per Dr Singh pt had profound desaturation with Propofol sedation for EGD in 2012 requiring nasal and oral airways and bag mask ventilation findings of gastroparesis, enterogastric bile reflux gastritis Chronic Kidney disease stage III On adm Bun/ cre 46/2.52 on previous adm 16/06.55 ---09/07/16 Continue with gentle hydration Avoid nephrotoxic agents Monitor BMP in AM COPD Pt uses 3L oxygen at home, continue with supplemented oxygen No acute distress Continue with home dose of medications CHF On previous adm BNP 405, On this adm BNP 1189 close to her baseline Trace edema to Marielle lower extremities. Strict I/O and weight pt daily. A-fib- stable continue with home dose of medications Xarelto 10mg daily. [place]-vaginal fistula pt is currently taking Cipro and Flagyl prophylaxis Continue with probiotic. Code status : DNR GI ppx:protonix VTE ppx: Therapeutic Xarelto for A-fib Time 50 minutes and case discussed with Dr. Thondapu - Assessment/Plan (1) Acute renal failure superimposed on stage 3 chronic kidney disease Problem: Acute Qualifiers: Acute renal failure type: unspecified Qualified Code(s): N17.9 - Acute kidney failure, unspecified; N18.3 - Chronic kidney disease, stage 3 (moderate) ; N18.3 - Chronic kidney disease, stage 3 (moderate) (2) Anemia Problem: Chronic Qualifiers: Anemia type: iron deficiency Iron deficiency anemia type: chronic blood loss Qualified Code(s): D50.0 - Iron deficiency anemia secondary to blood loss (chronic) (3) Atrial fibrillation Problem: Chronic Qualifiers: (4) CHF (congestive heart failure) Problem: Chronic Qualifiers: (5) Diabetes mellitus type 2 in obese Problem: Chronic (6) Hypertension Problem: Chronic Qualifiers: (7) Hypothyroidism Problem: Chronic Qualifiers:
[2017-06-15] MEDS ORDERED: NYSTATIN 15 APPL BTL TP PRN (00:19)
[2017-06-15] MEDS ORDERED: TROLAMINE SALICYLATE 90 APPL TUBE TP PRN (00:19)
[2017-06-15] MEDS ORDERED: ALBUTEROL SULFATE/IPRATROPIUM 3 ML NEBU IH ONE (00:22)
[2017-06-15] MEDS ORDERED: ALBUTEROL SULFATE/IPRATROPIUM 3 ML NEBU IH SCH ×2 (00:30→07:00)
[2017-06-15] MEDS ORDERED: ACETAMINOPHEN 500 MG TABLET PO PRN (00:32)
[2017-06-15] MEDS ORDERED: FUROSEMIDE 10 MG/ML VIAL ONE (00:44)
[2017-06-15] MEDS ORDERED: ALBUTEROL SULFATE 2.5 MG/0.5 ML VIAL.NEB IH PRN ×2 (00:45→10:54)
[2017-06-15] MEDS ORDERED: INSULIN LISPRO 100 UNITS/ML VIAL ONE (01:41)
[2017-06-15] MEDS: INSULIN LISPRO 100 UNITS/ML VIAL SC SCH ×6 (01:43→17:18)
[2017-06-15] MEDS ORDERED: NORMAL SALINE 1,000 ML IV PRN (04:50)
[2017-06-15 05:49] LABS: Hematocrit 25.9 % (37.0-47.0); Mean Cell Volume 95.6 fl (78-100); Mean Corpuscular Hemoglobin 27.3 pg (27-31); Mean Corpuscular Hgb Conc 28.6 g/dl (32-36); Mean Platelet Volume 13.1 fl (6.0-9.5); Neutrophil # 2.9 K/mm3 (1.3-6.0); Neutrophil % 60.6 % (42-75.0); Platelet Count 144 K/mm3 (150-450); Red Blood Count 2.71 M/mm3 (4.2-5.4); Red Cell Distribution Width 15.1 % (11.5-14.0); White Blood Count 4.8 K/mm3 (4.0-10.5)
[2017-06-15 05:52] LABS: Hemoglobin 7.4 gm/dL (12.5-16.0)
[2017-06-15] MEDS ORDERED: FUROSEMIDE 10 MG/ML VIAL IV ONE (05:55)
[2017-06-15] MEDS ORDERED: ACETAMINOPHEN 325 MG TABLET PO ONE (05:55)
[2017-06-15 06:00] LABS: Anion Gap 9.9 mmol/L (6.8-13.8); BUN/Creatinine Ratio 18.3 (9.0-21.6); Calcium * 8.7 mg/dL (7.9-10.9); Carbon Dioxide 32.5 mmol/L (24-32.6); Estimated Creat Clear 17.3; Potassium 4.4 mmol/L (3.4-4.6)
[2017-06-15] MEDS ORDERED: HUM INSULIN NPH/REG INSULIN HM 100 UNIT/ML VIAL SC SCH (07:00)
[2017-06-15] MEDS ORDERED: PANTOPRAZOLE SODIUM 40 MG TABLET.EC PO SCH (07:00)
[2017-06-15] MEDS: PANTOPRAZOLE SODIUM 40 MG in NORMAL SALINE 100 ML IV SCH (07:22)
[2017-06-15] MEDS: LEVOTHYROXINE SODIUM 50 MCG TABLET PO SCH (07:34)
[2017-06-15] MEDS ORDERED: RIVAROXABAN 15 MG TABLET PO SCH (09:00)
[2017-06-15] MEDS ORDERED: PIOGLITAZONE HCL 15 MG TABLET PO SCH (09:00)
[2017-06-15] MEDS ORDERED: FERROUS SULFATE 325 MG TABLET PO SCH (09:00)
[2017-06-15] MEDS ORDERED: metroNIDAZOLE 500 MG TABLET PO SCH (09:00)
[2017-06-15] MEDS ORDERED: CIPROFLOXACIN HCL 500 MG TABLET PO SCH (09:00)
[2017-06-15] MEDS ORDERED: FAMOTIDINE 20 MG TABLET PO SCH (09:00)
[2017-06-15] MEDS ORDERED: AMIODARONE HCL 200 MG TABLET PO SCH (09:00)
[2017-06-15] MEDS ORDERED: FLUCONAZOLE 100 MG TABLET PO SCH (09:00)
[2017-06-15] MEDS ORDERED: SUCRALFATE 1 G TABLET PO SCH (09:00)
[2017-06-15] MEDS ORDERED: ACARBOSE 25 MG PO SCH (09:00)
[2017-06-15] MEDS: MULTIVITAMINS 1 CAP CAPSULE PO SCH (09:17)
[2017-06-15] MEDS: CARBIDOPA/LEVODOPA CR 50/200 1 TAB TABLET.SA PO SCH ×4 (09:17→20:30)
[2017-06-15] MEDS: TAMSULOSIN HCL 0.4 MG CAP.SR.24H PO SCH (09:18)
[2017-06-15] MEDS: HYDROPHILIC OINTMENT 454 APPL JAR TP SCH ×2 (09:19→20:27)
[2017-06-15] MEDS: LACTOBACILLUS ACIDOPHILUS 100 CAP BTL PO SCH (09:19)
[2017-06-15] MEDS: METOPROLOL TARTRATE 100 MG TABLET PO SCH ×2 (09:26→20:29)
[2017-06-15] MEDS ORDERED: TOPIRAMATE 50 MG TABLET PO SCH (11:00)
[2017-06-15] MEDS ORDERED: INSULIN LISPRO 100 UNITS/ML VIAL SC SCH (12:00)
[2017-06-15] MEDS: ALBUTEROL SULFATE/IPRATROPIUM 3 ML NEBU IH SCH ×2 (12:45→18:10)
--- NOTE | 2017-06-15 20:00 | PN ---
Subjective - Date and Time Seen Date: 06/15/17 Time: 20:00 Subjective Narrative: Patient underwent transfusion with packed RBC. Would like her medication list shortened as she feels she is on too many meds. Patient underwent an EGD in 2012 which showed bile reflux esophagitis. States her diabetes is always has been poorly controlled. Baseline is walking to the end of the room and back. Objective - Review of Systems Generalized/Overall Review: Reports: Weakness, Weight gain Respiratory: Reports: Shortness of Breath - Chronic.. Denies: Cough Cardiac: Reports: Edema. Denies: Chest Pain Abdominal: Denies: Nausea, Vomiting - Vitals Vitals: Vital Signs Temp 36.6 C 06/15/17 19:43 Pulse 51 L 06/15/17 19:43 Resp 18 06/15/17 19:43 BP 111/51 06/15/17 19:43 Pulse Ox 100 06/15/17 19:43 - Abnormal Lab Findings Abnormal Lab Findings: Laboratory Tests 06/15/17 05:30 WBC 4.8 Hgb 7.4 L* Hct 25.9 L Plt Count 144 L 06/15/17 05:30 Plasma Sodium 142 Potassium 4.4 Chloride 102 Carbon Dioxide 32.5 BUN 44 H Creatinine 2.40 H Est GFR (Non-Af Amer) 21 L - EKG/Xray Findings EKG: other - rtytm strip - sinus bradycardia with first-degree AV block - Exam Constitutional: Present: Elderly, Morbidly obese, Looks Older than stated age - On O2 at 2 L, A and O 3, cooperative, chronically ill-looking; uses cane. ENT Exam: Present: hearing grossly normal, dry mucous membranes Neck: Present: normal inspection, trachea midline Respiratory: Present: no accessory muscle use, wheezing - intermittent, Cardiovascular/Chest: Present: bradycardia, systolic murmur Abdomen: Present: Normal bowel sounds, soft, nontender, obese Extremity: Absent: pedal edema Skin Exam: Present: warm/dry, pallor Neurologic: Present: depressed affect - tremors present. Assessment/Plan Plan Narrative: 1. Anemia. S/P transfusion 2. PRBC. denies taking any NSAIDS /EtOH. Patient states she is not a candidate for EGD/colonoscopy. Reviewed records and her sats are decreased during sedation. She did not have any anesthetic complications. H&H today 7.4 and 24.9. Transfuse with 2 more units of packed RBC. 2. Bradycardia with a rate of 51/m Consider decreasing amiodarone from 400-200 mg daily. 3. T2 diabetes: On multiple medications including Actos 15 mg daily, acarbose 25 mg several times a day. Consider discontinuing them. 4. Multiple chronic problems: Rectovaginal fistula, Parkinson's disease, osteoporosis, morbid obesity, decreased mobility, migraines, CABG, on O2, reviewed and stable.
--- NOTE | 2017-06-15 20:53 | DS ---
(1) Anemia Problem: Chronic QualifierTitle: Anemia type: iron deficiency Iron deficiency anemia type : chronic blood loss Qualified Code(s): D50.0 - Iron deficiency anemia secondary to blood loss (chronic) (2) Atrial fibrillation Problem: Chronic (3) CHF (congestive heart failure) Problem: Chronic QualifierTitle: Congestive heart failure type: diastolic Congestive heart failure chronicity: chronic Qualified Code(s): I50.32 - Chronic diastolic (congestive) heart failure (4) Diabetes mellitus type 2 in obese Problem: Chronic (5) Hypertension Problem: Chronic QualifierTitle: Hypertension type: essential hypertension Qualified Code( s): I10 - Essential (primary) hypertension (6) Hypothyroidism Problem: Chronic QualifierTitle: Hypothyroidism type: unspecified Qualified Code(s): E03.9 - Hypothyroidism, unspecified (7) ROZ (acute kidney injury) Problem: Acute Description of Stay: 71 years old white female adm to the hospital with hgb 6.7 and reports of fatigue. PMH significant for Anemia Afib ( on Xarelto), COPD, CHF and hypothyriodism. pt have been fatigue for several days before seeing a provider. She denies melena, hematoemesis , stool positive for occult blood.During this adm pt remains medically stable and tolerated 3 UPRBC post H/ H 9.4/31.8.12/03/16 previous Bun/Cre 23/1.40 GFR 40 and TSH 1.9. On this adm Bun /Cre 46/2.52---> with gently hydration and post transfusion Bun/Cre --->36/2.21 , GFR 23. she will hold her potassium and lasix for 3-4 days upon discharge and follow up with Dr Fish for further management. Time 25 minutes Procedures Performed: none Results and Findings: Laboratory Tests 06/15/17 06/16/17 05:30 05:25 WBC 4.8 4.6 RBC 2.71 L 3.34 L Hgb 7.4 L 9.4 L Hct 25.9 L 31.8 L Sodium 140 133 Plasma Sodium 142 135 Potassium 4.4 5.2 BUN 44 H 36 Creatinine 2.40 2.21 Est GFR (Non-Af Amer) 21 L 23 Random Glucose 242 H 235 AST 56 ALT 13 Discharge Disposition: Home self care Disposition: Home self-care Condition: Undetermined Discharge Activity: Activity as tolerated Discharge Diet: Consistent carbs, Low fat/chol, High Fiber Referrals: Nikolas Fish DO [Primary Care Provider] - Problem Oriented Discharge Instructions to Patient/Family: Iron Deficiency Anemia, Adult, Gastrointestinal Bleeding, [id number] Additional Patient Instructions (free text): Hold potassium and Lasix for 3-4 days or until seen by Dr Fish. Vitamin d3 5000 units daily with food. Appt with PCP in 3-4 days. MEDS D/DIANA: actos 15 mg podaily. precose cipro flagyl amiadarone 400 mg prior insulin. NEW MEDICATIONS: amiadarone 200 mg. po daily. lantus 40 units at bedtime. humalog 10 units with each meal . Sliding scale: 150-200 mg/dl-add 2 units. 201-250 mg/dL-add 4 units. 251-300 mg/dL add 6 units. 301-350 mg/dL add 8 units. 351-400 mg/dL add 10 units. Use lower amount of insulin as sliding scale at bedtime. Make sure you take a high protein snack at bedtime Prescriptions (Any new or edited meds): Amiodarone HCl [Cordarone] 200 mg PO DAILY #0.1 tablet Hydrophilic Ointment [Aquaphilic Ointment] 1 appl TP BID #1 jar Insulin Glargine,Hum.rec.anlog [Lantus] 40 units SC HS #1 vial Insulin Lispro [Humalog] 10 units SC AC #1 vial Omeprazole 40 mg PO DAILY #0.1 capsule. Potassium Chloride [Klor-Con 10] 20 meq PO TID #0.1 tablet.er Topiramate [Trokendi Xr] 50 mg PO HS #30 cap.er.24h Complete Home Medications List: Complete Home Medication List: Albuterol Sulfate [Ventolin HFA] 2 puff IH Q4H PRN 03/19/16 Albuterol Sulfate/Ipratropium [Duoneb 2.5-0.5MG/3ML Soln] 3 ml IH QID 03/19/16 Atorvastatin Calcium 40 mg PO DAILY 03/19/16 Furosemide [Lasix] 80 mg PO BID 03/19/16 Levothyroxine Sodium [Synthroid] 50 mcg PO DAILY 03/19/16 Metoprolol Tartrate 100 mg PO BID 10/24/16 Multivitamin [One Daily Essential] 1 each PO DAILY 03/19/16 Trolamine Salicylate [Aspercreme] 1 appl TP QID PRN 03/19/16 Acetaminophen [Tylenol] 1,000 mg PO QID PRN 06/14/17 Biotin 20,000 mcg PO DAILY 06/14/17 Kit Cit/Mag/D3/Zn/Search Engine Marketing Manager/Abdias/Bor [Citracal-Vit D + Magnesium Tab] 2 each PO BID Carbidopa/Levodopa Cr 50/200 [Sinemet Cr 50/200] 1 tab PO QID 06/14/17 L.acidoph,Paracasei, B.lactis [Probiotic] 1 each PO DAILY 06/14/17 Nystatin [Mycostatin Powder] 1 appl TP BID PRN 06/14/17 Amiodarone HCl [Cordarone] 200 mg PO DAILY #0.1 tablet 06/15/17 Hydrophilic Ointment [Aquaphilic Ointment] 1 appl TP BID #1 jar 06/15/17 Insulin Lispro [Humalog] 10 units SC AC #1 vial 06/15/17 Omeprazole 40 mg PO DAILY #0.1 capsule.dr 06/15/17 Potassium Chloride [Klor-Con 10] 20 meq PO TID #0.1 tablet.er 06/15/17 Topiramate [Trokendi Xr] 50 mg PO HS #30 cap.er.24h 06/15/17 Insulin Glargine,Hum.rec.anlog [Lantus] 40 units SC HS #1 vial 06/16/17
[2017-06-15] MEDS ORDERED: INSULIN GLARGINE,HUM.REC.ANLOG 100 UNITS/ML VIAL SC SCH (21:00)
[2017-06-15] MEDS ORDERED: ATORVASTATIN CALCIUM 40 MG TABLET PO SCH (21:00)
[2017-06-16] MEDS: ALBUTEROL SULFATE/IPRATROPIUM 3 ML NEBU IH SCH ×3 (00:27→12:33)
[2017-06-16 05:55] LABS: Hematocrit 31.8 % (37.0-47.0); Hemoglobin 9.4 gm/dL (12.5-16.0); Mean Cell Volume 95.2 fl (78-100); Mean Corpuscular Hemoglobin 28.1 pg (27-31); Mean Corpuscular Hgb Conc 29.6 g/dl (32-36); Mean Platelet Volume 13.8 fl (6.0-9.5); Neutrophil # 2.8 K/mm3 (1.3-6.0); Neutrophil % 59.4 % (42-75.0); Platelet Count 127 K/mm3 (150-450); Red Blood Count 3.34 M/mm3 (4.2-5.4); Red Cell Distribution Width 14.6 % (11.5-14.0); White Blood Count 4.6 K/mm3 (4.0-10.5)
[2017-06-16 06:35] LABS: Albumin * 2.7 gm/dl (3.4-5.0); Anion Gap 13.2 mmol/L (6.8-13.8); BUN/Creatinine Ratio 16.3 (9.0-21.6); Bilirubin, Total 0.4 mg/dL (0.0-1.1); Calcium * 8.3 mg/dL (7.9-10.9); Potassium 5.2 mmol/L (3.4-4.6)
[2017-06-16] MEDS: PANTOPRAZOLE SODIUM 40 MG in NORMAL SALINE 100 ML IV SCH (06:59)
[2017-06-16] MEDS: LEVOTHYROXINE SODIUM 50 MCG TABLET PO SCH (07:01)
[2017-06-16] MEDS: INSULIN LISPRO 100 UNITS/ML VIAL SC SCH ×4 (07:05→13:16)
[2017-06-16] MEDS: LACTOBACILLUS ACIDOPHILUS 100 CAP BTL PO SCH (08:31)
[2017-06-16] MEDS: HYDROPHILIC OINTMENT 454 APPL JAR TP SCH (08:31)
[2017-06-16] MEDS: CARBIDOPA/LEVODOPA CR 50/200 1 TAB TABLET.SA PO SCH ×2 (08:32→13:17)
[2017-06-16] MEDS: MULTIVITAMINS 1 CAP CAPSULE PO SCH (08:32)
[2017-06-16] MEDS: TAMSULOSIN HCL 0.4 MG CAP.SR.24H PO SCH (08:32)
[2017-06-16] MEDS: METOPROLOL TARTRATE 100 MG TABLET PO SCH (08:34)
[2017-06-16] MEDS ORDERED: AMIODARONE HCL 200 MG TABLET PO SCH (09:00)
[2017-06-16 15:54] VITALS: BP 135/57
[2017-06-16] MEDS ORDERED: INSULIN GLARGINE,HUM.REC.ANLOG 100 UNITS/ML VIAL SC SCH (21:00)
== END 2017-06-16 16:45 | disposition home or self-care (01) ==
LOC: ER 18:45 → MS 20:28
PROVIDERS: ADMIT Nurse Practitioner; ATTEND Internal Medicine
PROC: 30233N1 Transfusion of Nonautologous Red Blood Cells into Peripheral Vein, Percutaneous Approach (ICD-10-PCS; principal; 2017-06-14)
DX: I51.7 Cardiomegaly; Z79.01 Long term (current) use of anticoagulants; R53.1 Weakness; D50.0 Iron deficiency anemia secondary to blood loss (chronic); I48.2 Chronic atrial fibrillation; I50.32 Chronic diastolic (congestive) heart failure; I10 Essential (primary) hypertension; E03.9 Hypothyroidism, unspecified; E11.9 Type 2 diabetes mellitus without complications; D64.9 Anemia, unspecified; Z68.42 Body mass index [BMI] 45.0-49.9, adult; N17.9 Acute kidney failure, unspecified
CPT/HCPCS: 36415; 36430; 71046; 74019; 80048; 80053; 82272; 83880; 85025; 86850; 86900; 87081; 93005; 94640; 96365; 96366; 96372; 96374; 96375; 99285; G0378; P9016

== ENCOUNTER 2019-04-13 10:16 | Observation (INO) ==
[~2019-04-13 10:16] MED LIST: [UNRECOGNIZED DRUG - OTHER] PO SCH
[2019-04-13] MEDS ORDERED: OXYGEN IH SCH (12:45)
[2019-04-13] MEDS ORDERED: INSULIN REGULAR, HUMAN 100 UNITS/ML VIAL SC SCH (13:00)
[2019-04-13] MEDS: GABAPENTIN 300 MG CAPSULE PO SCH ×2 (14:03→16:16)
[2019-04-13] MEDS: ENOXAPARIN SODIUM 30 MG/0.3 ML SYRG SC SCH (14:03)
[2019-04-13] MEDS: CARBIDOPA/LEVODOPA CR 50/200 1 TAB TABLET.SA PO SCH ×3 (14:03→20:43)
[2019-04-13] MEDS: DULoxetine HCL 30 MG CAPSULE.SA PO SCH (14:04)
[2019-04-13] MEDS: LEVOTHYROXINE SODIUM 50 MCG TABLET PO SCH (14:04)
[2019-04-13] MEDS: AMIODARONE HCL 200 MG TABLET PO SCH (14:05)
[2019-04-13] MEDS: LOSARTAN POTASSIUM 50 MG TABLET PO SCH (14:05)
[2019-04-13] MEDS: POTASSIUM CHLORIDE 20 MEQ TABLET.SA PO SCH (16:16)
[2019-04-13] MEDS ORDERED: ORPHENADRINE CITRATE 30 MG/ML VIAL IV PRN (16:36)
--- NOTE | 2019-04-13 16:59 | HP ---
Chief Complaint - Chief Complaint Date of Service: 04/13/19 Time of Service: 13:15 Chief Complaint: Laney Steele is a 73-year-old morbidly obese female well-known to me who presented to Dr. Tam's office today due to an injured right ankle. X-ray reveals that it is a surgical ankle and she needed to be admitted. History of Present Illness: Laney had just been to the bathroom and was walking back to her chair when she fell in the kitchen and broke the ankle. She has been having more neurological symptoms the last month to 6 weeks. Had more twitching and jerking of her arms. She has not had any difficulty with swallowing or speaking until today. Today she is nearly aspirating when she is trying to eat or drink anything. Is having involuntary muscle contractions in her throat causing this. When I saw her initially she was sound asleep and there was no muscle twitching during that time. This she has a litany of other medical problems including diabetes, hypertension, hyperlipidemia, morbid obesity, COPD, hypoxemia chronically. She is in her wheelchair most of the time. 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 Breast cancer screening (Acute) Has been several years. Lumbar radicular pain (Chronic) Ya s working with Dr. Clements and is having an MRI tomorrow. Coronary artery disease (Chronic) Onset Date: Unknown Nuclear cataract of both eyes (Chronic) Discharge of vagina (Acute) possible yeast infection Morbid obesity with BMI of 50.0-59.9, adult (Chronic) Back pain (Chronic) Onset Date: Unknown Bilateral wrist pain (Acute) Onset Date: Unknown Parkinson disease (Chronic) Onset Date: ~2005 Osteoporosis (Chronic) Onset Date: ~1987 JACINTO (obstructive sleep apnea) (Chronic) Onset Date: Unknown Obesity (Acute) Onset Date: Unknown Hypothyroidism (Chronic) Onset Date: Unknown Hyperlipidemia (Chronic) Onset Date: Unknown Gout (Resolved) Onset Date: ~1993 GERD (gastroesophageal reflux disease) (Chronic) Onset Date: ~2000 Fibromyalgia (Chronic) Onset Date: ~1987 Emphysema of lung (Chronic) Onset Date: ~2005 Disc degeneration, lumbar (Chronic) Onset Date: ~1987 L5-S1 Diabetes (Chronic) Onset Date: Unknown CHF (congestive heart failure) (Chronic) Onset Date: ~1955 COPD (chronic obstructive pulmonary disease) (Chronic) Onset Date: ~2005 F@F note: Laney Steele has COPD with asthma and would benefit from changing from ipratropium br./albuterol HFA to Perforomist per nebulizer. She needs a new nebulizer as well. 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) Onset Date: Unknown Chronic respiratory failure with hypoxia and hypercapnia (Chronic) Onset Date: Unknown Cataract cataract surgery Spinal stenosis Onset Date: ~1987 Carpal tunnel syndrome on both sides Onset Date: Unknown Fistula, colovaginal Onset Date: Unknown Gastritis Onset Date: Unknown Migraine Onset Date: Unknown Surgical History: Surgical History (Last Reviewed 04/13/19 @ 13:03 by Ashley Estrada RN) H/O heart bypass surgery Onset Date: ~2000 2000- triple heart bypass H/O: hysterectomy Onset Date: ~1975 1975 History of appendectomy Onset Date: Unknown History of carpal tunnel release of both wrists Onset Date: Unknown History of cholecystectomy Onset Date: Unknown History of dilation and curettage Onset Date: Unknown History of esophagogastroduodenoscopy (EGD) Onset Date: Unknown 12/29/2012 dr underwood History of total right knee replacement Onset Date: Unknown Previous back surgery Onset Date: Unknown Family History: Family History (Last Reviewed 04/13/19 @ 12:06 by Starr Yeboah RN) Mother No problems noted. Father No problems noted. Social History: (Last Updated 04/13/19 @ 13:31 by Mahendra Murdock MD) Social History: Marital status: household members: spouse current occupational status: retired current occupation: disabled Highest education level completed: 10th grade Service: No Tobacco: Smoking Status: Former smoker Alcohol: alcohol intake: never Substance Use: substance use type: does not use Dietary Habits: caffeine: Yes Type: coffee Review Of Systems (GEN) - Review of Systems Generalized/Overall Review: Present: Weakness, Malaise EENTM: Present: No Symptoms Reported Respiratory: Present: No Symptoms Reported, Shortness of Breath, Wheezing Cardiac: Present: No Symptoms Reported, Edema. Absent: Chest Pain, Palpitations, Syncope Abdominal: Present: No Symptoms Reported. Absent: Nausea, Vomiting, Hematemesis Genitourinary: Present: No Symptoms Reported Musculoskeletal: Present: No Symptoms Reported Neurological: Present: Depressed, Other - Uncontrollable muscle twitching and jerking Skin: Present: No Symptoms Reported Endocrine: Present: No Symptoms Reported Immunizations: IMMUNIZATION HX Immunizations Up to Date Yes History of Influenza Vaccine More Information Required Hx Pneumococcal Vaccination More Information Required Allergies/Adverse Reactions: Allergies Allergy/AdvReac Type Severity Reaction Status Date / Time fluticasone Allergy Verified 04/13/19 13:06 [From Advair Diskus] levofloxacin [From Levaquin] Allergy Verified 04/13/19 13:06 meperidine [From Demerol] Allergy Verified 04/13/19 13:06 metoclopramide [From Reglan] Allergy Verified 04/13/19 13:06 NSAIDS (Non-Steroidal Allergy Verified 04/13/19 13:06 Anti-Inflamma procaine [From Novocain] Allergy Verified 04/13/19 13:06 salmeterol Allergy Verified 04/13/19 13:06 [From Advair Diskus] tramadol Allergy Verified 04/13/19 13:06 Home Medications: HOME MEDICATIONS blood sugar diagnostic See Dose Instructions .ROUTE .MEDSUPPLY #100 ea 03/14/18 [Last Taken Unknown] atorvastatin 40 mg tablet 40 mg PO DAILY #90 tab 12/01/18 [Last Taken Unknown] DULoxetine HCL [Cymbalta] 30 mg PO DAILY 01/15/19 [Last Taken Unknown] Levothyroxine Sodium [Synthroid] 50 mcg PO DAILY 01/15/19 [Last Taken Unknown] gabapentin 300 mg capsule 300 mg PO TID #90 cap 01/23/19 [Last Taken Unknown] calcium carb,cit ER 600 mg calcium-vit D3 500 unit tablet,ext.release 2 tab PO BID #120 tab 02/25/19 [Last Taken Unknown] Amiodarone HCl 200 mg PO DAILY 04/13/19 [Last Taken Unknown] Biotin 20,000 mcg PO DAILY 04/13/19 [Last Taken Unknown] Carbidopa/Levodopa Cr 50/200 [Sinemet Cr 50/200] 1 tab PO QID 04/13/19 [Last Taken Unknown] Ferrous Sulfate 325 mg PO BID 04/13/19 [Last Taken Unknown] L.acidoph,Paracasei, B.lactis [Probiotic] 1 ea PO DAILY 04/13/19 [Last Taken Unknown] Losartan Potassium 25 mg PO DAILY 04/13/19 [Last Taken Unknown] Oxygen 0 .ROUTE .MEDSUPPLY ea 04/13/19 [Last Taken Unknown] Potassium Chloride [Klor-Con 10] 20 meq PO TID 04/13/19 [Last Taken Unknown] Propranolol HCl 60 mg PO BID 04/13/19 [Last Taken Unknown] Topiramate [Topamax] 25 mg PO BID 04/13/19 [Last Taken Unknown] Umeclidinium [place] [Incruse Ellipta] 62.5 mcg INHALATION DAILY 04/13/19 [Last Taken Unknown] furosemide 80 mg tablet 80 mg PO BID #60 tab 04/13/19 [Last Taken Unknown] Exam - Exam Vital Signs: Vital Signs - Last Taken Temp 36.7 C 04/13/19 14:38 Pulse 58 L 04/13/19 14:38 Resp 20 04/13/19 14:38 BP 135/41 04/13/19 14:38 Pulse Ox 98 04/13/19 14:38 Constitutional: Present: Somnolent ENT Exam: Present: normal ENT inspection, hearing grossly normal, pharynx normal, TMs normal Eye Exam: bilateral eye: normal inspection, PERRL, EOMI Neck: Present: non-tender, supple, normal inspection, limited range of motion Back Exam: Present: normal inspection, no CVA tenderness, no vertebral tenderness Breasts: Present: Exam deferred Respiratory: Present: chest non-tender, decreased breath sounds, rhonchi, wheezing, expiration (prolonged) Cardiovascular/Chest: Present: normal peripheral pulses, regular rate, rhythm, no chest tenderness, no gallop, no JVD, no murmur, no rub Peripheral Pulses: carotid (R): 2+, carotid (L): 2+, radial (R): 2+, radial (L): 2+ Abdomen: Present: Normal bowel sounds, soft, nontender, nondistended, obese /Rectal: Present: Exam deferred Extremity: Present: normal range of motion, non-tender, normal inspection, no calf tenderness, normal capillary refill Skin Exam: Present: normal color, warm/dry, no cyanosis Lymphatic: Present: no adenopathy, axilla node tender (R), axilla node tender (L) Neurologic: Present: strap cutting machine operator II-XII nml as tested, normal cerebellar test, no motor/sensory deficits, normal mood/affect, oriented x 3, abnormal cerebellar tests, abnormal strap cutting machine operator II-XII, abnormal gait, depressed affect, other - Involuntary twitching and flailing. Also having involuntary throat spasms making it difficult to swallow safely. Appearance: Present: appropriate appearance, appropriate insight, neat Eye contact: Present: cooperative, good eye contact, normal speech, avoids eye contact Thoughts: Present: normal thought pattern, no apparent hallucination Assessment/Plan - Narrative Narrative: 1. Prepare for ORIF of right ankle tomorrow 2. Try Norflex 60 mg IV to see if it helps with the involuntary muscle contractions 3. Hold oral meds and food until it safe. 4. I anticipate she will be here more than 24 hours but I will readdress her admission status tomorrow. 5. Morning labs to include CBC CMP lipid panel. - Assessment/Plan (1) Closed right ankle fracture Problem: Acute (2) CKD (chronic kidney disease) stage 3, GFR 30-59 ml/min Problem: Chronic (3) Diabetes mellitus type 2 in obese Problem: Chronic (4) Dependence on supplemental oxygen Problem: Chronic (5) Parkinson disease Problem: Chronic (6) Diabetes Problem: Chronic Qualifiers: Diabetes mellitus type: type 2 Diabetes mellitus usp insulin use: with usp use Diabetes mellitus complication status: with neurologic complications Diabetes mellitus complication detail: with polyneuropathy Qualified Code(s): E11.42 - Type 2 diabetes mellitus with diabetic polyneuropathy; Z79.4 - snf (current) use of insulin (7) COPD (chronic obstructive pulmonary disease) Problem: Chronic Qualifiers: COPD type: chronic bronchitis
[2019-04-13] MEDS ORDERED: CARBIDOPA/LEVODOPA CR 50/200 1 TAB TABLET.SA PO SCH (17:00)
[2019-04-13] MEDS: FORMOTEROL FUMARATE 20 MCG/2 ML VIAL IH SCH (18:07)
[2019-04-13] MEDS: HYDROcodone/ACETAMINOPHEN 1 EACH TABLET PO PRN (20:26)
[2019-04-13] MEDS: FUROSEMIDE 80 MG TABLET PO SCH (20:43)
[2019-04-13] MEDS: ROSUVASTATIN CALCIUM 20 MG TABLET PO SCH (20:43)
[2019-04-13] MEDS: PROPRANOLOL HCL 20 MG TABLET PO SCH (20:43)
[2019-04-13] MEDS: FERROUS SULFATE 325 MG TABLET PO SCH (20:43)
[2019-04-13] MEDS: TOPIRAMATE 50 MG TABLET PO SCH (20:43)
[2019-04-13] MEDS ORDERED: PROPRANOLOL HCL 60 MG PO SCH (21:00)
[2019-04-13] MEDS ORDERED: POTASSIUM CHLORIDE 10 MEQ TABLET.SA PO SCH (21:00)
[2019-04-13] MEDS ORDERED: INSULIN GLARGINE,HUM.REC.ANLOG 100 UNITS/ML VIAL SC SCH (21:00)
[2019-04-13] MEDS ORDERED: ONDANSETRON 8 MG TAB.RAPDIS PO PRN (21:02)
[2019-04-13] MEDS: NORMAL SALINE 1,000 ML IV PRN (21:19)
[2019-04-14] MEDS: MORPHINE SULFATE 4 MG/ML SYRG IV PRN ×2 (04:55→08:44)
[2019-04-14] MEDS: FORMOTEROL FUMARATE 20 MCG/2 ML VIAL IH SCH ×2 (06:00→18:02)
[2019-04-14] MEDS: NORMAL SALINE 1,000 ML IV PRN ×2 (06:51→17:11)
[2019-04-14] MEDS: LEVOTHYROXINE SODIUM 50 MCG TABLET PO SCH (07:00)
[2019-04-14] MEDS ORDERED: LOSARTAN POTASSIUM 25 MG PO SCH (09:00)
[2019-04-14] MEDS: TOPIRAMATE 50 MG TABLET PO SCH ×2 (09:00→22:02)
[2019-04-14] MEDS ORDERED: AMIODARONE HCL 200 MG TABLET PO SCH (09:00)
[2019-04-14] MEDS: PROPRANOLOL HCL 20 MG TABLET PO SCH ×2 (09:00→22:01)
[2019-04-14] MEDS: POTASSIUM CHLORIDE 20 MEQ TABLET.SA PO SCH ×3 (09:00→16:47)
[2019-04-14] MEDS: FUROSEMIDE 80 MG TABLET PO SCH ×2 (09:00→22:01)
[2019-04-14] MEDS: GABAPENTIN 300 MG CAPSULE PO SCH ×3 (09:00→16:47)
[2019-04-14] MEDS: FERROUS SULFATE 325 MG TABLET PO SCH ×2 (09:00→22:00)
--- NOTE | 2019-04-14 13:16 | PN ---
Aramis Note - Interim Date: 04/14/19 Time: 09:00 Narrative: 04/14/19 13:05 I have evaluated Laney King today. She is alert and conversant. She understands the injury to her ankle and the need for surgery to repair it. If possible I would prefer she have an epdurial or spinal block for her surgery. She has a lot of comorbid conditions including diabetes, history of CAD, Moderate to severe COPD, Parkinson's dz., morbid obesity, and motor weakness. The surgery is expected to take about 1-2hrs. She is medically approved for the anticipated ORIF of the R. ankle bimaleolar fractures.
[2019-04-14 13:28] LABS: Hemoglobin 11.4 gm/dL (12.5-16.0); Mean Corpuscular Hemoglobin 32.7 pg (27-31); Mean Corpuscular Hgb Conc 30.8 g/dl (32-36); Mean Platelet Volume 11.4 fl (8-12.5); Neutrophil # 4.4 K/mm3 (1.3-6.0); Neutrophil % 72.5 % (42-75.0); Platelet Count 128 K/mm3 (150-450); Red Blood Count 3.49 M/mm3 (4.2-5.4); Red Cell Distribution Width 13.1 % (11.5-14.0); White Blood Count 6.1 K/mm3 (4.0-10.5)
[2019-04-14 13:39] LABS: Albumin * 2.8 gm/dl (3.4-5.0); Anion Gap 7.6 mmol/L (6.8-13.8); BUN/Creatinine Ratio 16.4 (9.0-21.6); Bilirubin, Total 0.5 mg/dL (0.0-1.1); Ca. Corrected For Albumin 9.5 mg/dL (8.4-10.2); Calcium * 8.9 mg/dL (7.9-10.9); Potassium 4.6 mmol/L (3.4-4.6); Total Protein 6.6 gm/dL (6.2-8.2)
--- NOTE | 2019-04-14 14:17 | PN ---
Subjective - Date and Time Seen Date: 04/14/19 Time: 14:03 Subjective Narrative: Ankle pain controlled. Denies chest pain, mild shortness of breath. Objective - Vitals Vitals: Last Vital Signs Temp 36.8 C 04/14/19 10:31 Pulse 80 04/14/19 10:31 Resp 20 04/14/19 10:31 BP 169/64 H 04/14/19 10:31 Pulse Ox 97 04/14/19 10:31 - Abnormal Lab Findings Abnormal Lab Findings: Abnormal Lab Results 04/14/19 04/14/19 Range/Units 13:22 13:22 RBC 3.49 L (4.2-5.4) M/mm3 Hgb 11.4 L (12.5-16.0) gm/dL MCV 106.0 H (78-100) fl MCH 32.7 H (27-31) pg MCHC 30.8 L (32-36) g/dl Plt Count 128 L (150-450) K/mm3 Immature Gran % (Auto) 0.50 H (0.001-0.429) % Lymphocytes % 11.0 L (20-51) % Monocytes % 14.8 H (0.0-9) % Lymphocytes # 0.67 L (1.5-3.5) k/mm3 Carbon Dioxide 34.0 H (24-32.6) mmol/L Est GFR (Non-Af Amer) 49 L D (60-130) mL/min Random Glucose 249 H (70-110) mg/dL ALT 12 L (19-67) U/L Albumin 2.8 L (3.4-5.0) gm/dl - Exam Exam Narrative: Gen: slightly drowsy, patient has eyes closed intermittently, oriented to place and person. Resp: breathing slightly labored on 3L nasal cannula, O2 sat 97% CV: RRR MSK: RLE--> plaster splint in place, toes well perfused, sensation intact to light touch, able to flex and extend toes Assessment/Plan Plan Narrative: 73 yo F with multiple medical comorbidities including severe COPD, morbid obesity, poorly controlled diabetes, and renal insufficiency with a right trimalleolar ankle fracture after a fall at home. - I had a long discussion with the patient and her family including her DURABLE POWER OF COPY COORDINATOR who was not present at her clinic visit yesterday regarding treatment options. Her daughter and DPOA expressed significant concern about surgical treatment of her ankle given her history of significant complications the last time she underwent general anesthetic. I counseled him that myself, Dr. Fish, and her nurse senior software manager are all in agreement that she is a significant surgical risk given her medical comorbidities. A spinal anesthetic would be extremely difficult given her size and significant arthrosis of her spine. General anesthetic presents a significant risk of having to remain intubated postoperatively and require close observation in intensive care, which we do not have here at [facility]. I counseled him that nonoperative treatment with cast immobilization is not an unreasonable option. Overall, her fractures are reasonably well-aligned and she does not have significant lateral talar shift. The patient is minimally ambulatory and only walk short distances around her house with a walker, particularly to go to the restroom. She otherwise only needs to be able to transfer in and out of a wheelchair. She also presents a significant risk of postoperative complications including wound complications and infection I counseled the family that I am not sure the potential benefits outweigh the risks of surgery in this case. The benefit of surgery would be to more closely anatomically align her fracture to minimize the chance of posttraumatic arthritis of the ankle and optimize the function of her ankle going forward. Considering the minimal amount of ambulation that she does, even if she were to develop some posttraumatic arthritis after her fracture heals in a cast, she would likely still be able to ambulate short distances and transfer in and out of a wheelchair. After discussion of all the risks and benefits of surgical versus nonoperative management, the patient and her DURABLE POWER OF COPY COORDINATOR wished to proceed with nonoperative cast immobilization. -Right short leg fiberglass, non-waterproof cast placed today without complication. See procedure note for details. -Post casting films ordered. -Nonweightbearing right lower extremity. -Continue medical care per Family Medicine. -Patient to follow-up in 1 week in orthopedic clinic for repeat x-rays in cast. - Problems/Diagnosis (1) Trimalleolar fracture of ankle, closed Problem: Acute Qualifiers: Encounter type: initial encounter Laterality: right Qualified Code(s): S82.851A - Displaced trimalleolar fracture of right lower leg, initial encounter for closed fracture
--- NOTE | 2019-04-14 14:19 | PROC NOTE ---
ED Procedures - Splinting Right Hand-Made Type: fiberglass Splint: short leg Pre-Proc Neuro Vasc Exam: normal Post-Proc Neuro Vasc Exam: normal - Well padded short leg cast applied without complication
[2019-04-14] MEDS: HYDROcodone/ACETAMINOPHEN 1 EACH TABLET PO PRN (16:46)
[2019-04-14] MEDS: ENOXAPARIN SODIUM 30 MG/0.3 ML SYRG SC SCH (16:46)
[2019-04-14] MEDS: CARBIDOPA/LEVODOPA CR 50/200 1 TAB TABLET.SA PO SCH ×4 (16:47→22:02)
[2019-04-14] MEDS: DULoxetine HCL 30 MG CAPSULE.SA PO SCH (16:48)
[2019-04-14] MEDS: LOSARTAN POTASSIUM 50 MG TABLET PO SCH (16:48)
[2019-04-14] MEDS: AMIODARONE HCL 200 MG TABLET PO SCH (16:48)
[2019-04-14] MEDS: ROSUVASTATIN CALCIUM 20 MG TABLET PO SCH (22:00)
[2019-04-14] MEDS ORDERED: INSULIN LISPRO 100 UNITS/ML VIAL SC ONE (22:17)
[2019-04-14] MEDS: INSULIN GLARGINE,HUM.REC.ANLOG 100 UNITS/ML VIAL SC SCH (22:27)
--- NOTE | 2019-04-14 23:59 | PN ---
Subjective - Date and Time Seen Date: 04/14/19 Time: 09:00 Subjective Narrative: pat is feeling better this morning. Te be evaluated for ORIF OF R. bimaleolar ankle fx. vs:casting. morning lab not performed. PT to begin assessing ADLs, safety concerns, etc. Objective - Review of Systems Generalized/Overall Review: Reports: Weakness EENTM: Reports: No Symptoms Reported Respiratory: Reports: Shortness of Breath Cardiac: Reports: No Symptoms Reported Abdominal: Reports: No Symptoms Reported Genitourinary Symptoms: Reports: No Symptoms Reported Musculoskeletal Complaints: Reports: Joint Pain Neurological: Reports: Tremors, Weakness Skin: Reports: No Symptoms Reported Endocrine: Reports: Increased Thirst - Vitals Vitals: Last Vital Signs Temp 36.3 C 04/14/19 19:05 Pulse 75 04/14/19 23:23 Resp 22 H 04/14/19 23:23 BP 113/45 04/14/19 23:23 Pulse Ox 98 04/14/19 23:23 - Abnormal Lab Findings Abnormal Lab Findings: Abnormal Lab Results 04/14/19 04/14/19 Range/Units 13:22 13:22 RBC 3.49 L (4.2-5.4) M/mm3 Hgb 11.4 L (12.5-16.0) gm/dL MCV 106.0 H (78-100) fl MCH 32.7 H (27-31) pg MCHC 30.8 L (32-36) g/dl Plt Count 128 L (150-450) K/mm3 Immature Gran % (Auto) 0.50 H (0.001-0.429) % Lymphocytes % 11.0 L (20-51) % Monocytes % 14.8 H (0.0-9) % Lymphocytes # 0.67 L (1.5-3.5) k/mm3 Carbon Dioxide 34.0 H (24-32.6) mmol/L Est GFR (Non-Af Amer) 49 L D (60-130) mL/min Random Glucose 249 H (70-110) mg/dL ALT 12 L (19-67) U/L Albumin 2.8 L (3.4-5.0) gm/dl - EKG/Xray Findings XRAY: ankle Interpretation: Reviewed by me - Exam Constitutional: Present: Alert, Oriented x3, Cooperative, Well developed, Well nourished, Elderly, Morbidly obese ENT Exam: Present: normal ENT inspection Neck: Present: non-tender, full range of motion Breasts: Present: Exam deferred Respiratory: Present: chest non-tender, rhonchi, wheezing Cardiovascular/Chest: Present: normal peripheral pulses, regular rate, rhythm, no chest tenderness Abdomen: Present: Normal bowel sounds /Rectal: Present: Exam deferred Extremity: Present: other Skin Exam: Present: normal color Lymphatic: Present: no adenopathy Neurologic: Present: french lecturer II-XII nml as tested, motor weakness, other Appearance: Present: no memory impairment Eye contact: Present: cooperative, good eye contact, normal speech Thoughts: Present: normal thought pattern, no apparent hallucination Assessment/Plan Plan Narrative: evaluate for surgery. Continue medical management. morning lab. PT to eval for ADLs consider SNF - Problems/Diagnosis (1) Closed right ankle fracture Problem: Acute (2) CKD (chronic kidney disease) stage 3, GFR 30-59 ml/min Problem: Chronic (3) Diabetes mellitus type 2 in obese Problem: Chronic (4) Dependence on supplemental oxygen Problem: Chronic (5) Parkinson disease Problem: Chronic (6) Diabetes Problem: Chronic Qualifiers: Diabetes mellitus type: type 2 Diabetes mellitus terminal supervisor insulin use: with half-way use Diabetes mellitus complication status: with neurologic complications Diabetes mellitus complication detail: with polyneuropathy Qualified Code(s): E11.42 - Type 2 diabetes mellitus with diabetic polyneuropathy; Z79.4 - terminal worker (current) use of insulin (7) COPD (chronic obstructive pulmonary disease) Problem: Chronic Qualifiers: COPD type: chronic bronchitis
[2019-04-15] MEDS: NORMAL SALINE 1,000 ML IV PRN (03:20)
[2019-04-15] MEDS: FORMOTEROL FUMARATE 20 MCG/2 ML VIAL IH SCH ×2 (06:04→21:59)
[2019-04-15] MEDS: LEVOTHYROXINE SODIUM 50 MCG TABLET PO SCH (07:43)
[2019-04-15] MEDS: FUROSEMIDE 80 MG TABLET PO SCH ×2 (10:03→22:02)
[2019-04-15] MEDS: PROPRANOLOL HCL 20 MG TABLET PO SCH ×2 (10:04→22:00)
[2019-04-15] MEDS: FERROUS SULFATE 325 MG TABLET PO SCH ×2 (10:04→22:00)
[2019-04-15] MEDS: AMIODARONE HCL 200 MG TABLET PO SCH (10:08)
[2019-04-15] MEDS: LOSARTAN POTASSIUM 50 MG TABLET PO SCH (10:09)
[2019-04-15] MEDS: DULoxetine HCL 30 MG CAPSULE.SA PO SCH (10:14)
[2019-04-15] MEDS: CARBIDOPA/LEVODOPA CR 50/200 1 TAB TABLET.SA PO SCH ×4 (10:16→22:01)
[2019-04-15] MEDS: GABAPENTIN 100 MG CAPSULE PO SCH ×3 (10:17→18:01)
[2019-04-15] MEDS: TOPIRAMATE 50 MG TABLET PO SCH ×2 (10:18→22:01)
[2019-04-15] MEDS: POTASSIUM CHLORIDE 20 MEQ TABLET.SA PO SCH ×3 (10:20→18:00)
[2019-04-15] MEDS: HYDROcodone/ACETAMINOPHEN 1 EACH TABLET PO PRN ×2 (10:28→17:59)
--- NOTE | 2019-04-15 11:25 | PN ---
Subjective - Date and Time Seen Date: 04/15/19 Time: 07:55 Subjective Narrative: Patient reports improvement in her overall pain. She rated at 3/10 last night, she notes currently when she moves it it increases to an 8/10. She notes it is worse with movement better with rest. Is been unable to complete physical therapy working for transitions, note she must stay nonweightbearing for her right lower extremity. Note patient uses a wheelchair for significant distances at baseline. She notes overall she feels as though the cast has aided in her pain. She does note she has multiple other joints that are causing significant pain and has discussed this with the medicine physician. Objective - Vitals Vitals: Last Vital Signs Temp 36.9 C 04/15/19 07:03 Pulse 64 04/15/19 10:09 Resp 20 04/15/19 07:03 BP 131/48 04/15/19 10:09 Pulse Ox 96 04/15/19 07:03 - Abnormal Lab Findings Abnormal Lab Findings: Abnormal Lab Results 04/14/19 04/14/19 Range/Units 13:22 13:22 RBC 3.49 L (4.2-5.4) M/mm3 Hgb 11.4 L (12.5-16.0) gm/dL MCV 106.0 H (78-100) fl MCH 32.7 H (27-31) pg MCHC 30.8 L (32-36) g/dl Plt Count 128 L (150-450) K/mm3 Immature Gran % (Auto) 0.50 H (0.001-0.429) % Lymphocytes % 11.0 L (20-51) % Monocytes % 14.8 H (0.0-9) % Lymphocytes # 0.67 L (1.5-3.5) k/mm3 Carbon Dioxide 34.0 H (24-32.6) mmol/L Est GFR (Non-Af Amer) 49 L D (60-130) mL/min Random Glucose 249 H (70-110) mg/dL ALT 12 L (19-67) U/L Albumin 2.8 L (3.4-5.0) gm/dl - Exam Constitutional: Present: Alert, No distress Extremity: Present: other - RLE--> short leg cast in place, no significant irritation or breakdown of the cast, sensation tact light touch, 4+/5 flexion extension of her toes, distal capillary refill less than 3 seconds Assessment/Plan Plan Narrative: -73-year-old female with a right trimalleolar fracture -Nonweightbearing right lower extremity, maintain cast in place -Follow-up with orthopedic outpatient clinic in 2 weeks for repeat films in cast -Chronic medical conditions per medicine -Monitor for cast breakdown or irritation - Problems/Diagnosis (1) Trimalleolar fracture of ankle, closed Problem: Acute Qualifiers: Encounter type: initial encounter Laterality: right Qualified Code(s): S82.851A - Displaced trimalleolar fracture of right lower leg, initial encounter for closed fracture
[2019-04-15] MEDS: INSULIN LISPRO 100 UNITS/ML VIAL SC SCH ×2 (12:05→17:56)
--- NOTE | 2019-04-15 13:31 | DS ---
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 Diabetes mellitus complication status: with neurologic complications Diabetes mellitus complication detail: with polyneuropathy Qualified Code(s): E11.42 - Type 2 diabetes mellitus with diabetic polyneuropathy; Z79.4 - bed bug exterminator (current) use of insulin (7) COPD (chronic obstructive pulmonary disease) Problem: Chronic Qualifiers: COPD type: chronic bronchitis Chronic bronchitis type: mixed simple and mucopurulent Qualified Code(s): J41.8 - Mixed simple and mucopurulent chronic bronchitis (8) Macrocytic anemia Problem: Chronic Date of Discharge:: 04/16/19 Description of Stay: Laney King is a 73-year-old morbidly obese female who fell at home in her kitchen and had a bimalleolar fracture of the right ankle. She was brought to the hospital and evaluated in ER and subsequently admitted. Initially an ORIF procedure had been planned but because of her multiple comorbid conditions and general lack of ambulation prior to the fall orthopedics and anesthesia agreed that she was too high of a surgical risk and decided to treat it with just immobilization. It has been casted. She is unable to get up unassisted. She will require a lot of help when she gets home but there is seems to be good family support. She will be continued on her same medicines except at family's request I reduced the gabapentin 200 mg 3 times a day. Initially she was having difficulty with swallowing and had to be kept n.p.o. Yesterday morning she was then able to swallow and has started eating. Her blood sugars have been in the mid 100s until she started eating and then they have jumped up to the 200s and 300s. I restarted her insulin. Her blood sugar this morning was in the mid 200s. Laney spent another night as she could not go home with a left. A lift has been procured and will be delivered to the home this afternoon. I have a bedside commode and a lift chair and a walker for her at home now. She will not be able to bear weight on the right ankle for probably 6 weeks. Orthopedics will direct that. Although I think she would benefit from home health she and her family are refusing at present. Procedures Performed: see notes below - Fiberglass cast has been applied as a short leg cast. Results and Findings: Lab Pending Results 04/14/19 13:22: WBC 6.1, RBC 3.49 L, Hgb 11.4 L, Hct 37.0, MCV 106.0 H, MCH 32.7 H, MCHC 30.8 L, RDW 13.1, Plt Count 128 L, MPV 11.4, Immature Gran % (Auto) 0.50 H, Immature Gran # (Auto) 0.03, Neutrophils % 72.5, Lymphocytes % 11.0 L, Monocytes % 14.8 H, Eosinophils % 0.7, Basophils % 0.5, Nucleated RBC % 0.0, Neutrophils # 4.4, Lymphocytes # 0.67 L, Monocytes # 0.9, Eosinophils # 0.0, Absolute Basophils 0.0 04/14/19 13:22: Sodium 138, Plasma Sodium 140, Potassium 4.6, Chloride 101, Carbon Dioxide 34.0 H, Anion Gap 7.6, BUN 19, Creatinine 1.16, Est GFR (Non-Af Amer) 49 L D, BUN/Creatinine Ratio 16.4, Random Glucose 249 H, Calcium 8.9, Calcium Adj for Albumin 9.5, Total Bilirubin 0.5, AST 21, ALT 12 L, Alkaline Phosphatase 88, Total Protein 6.6, Albumin 2.8 L Discharge Location: Home Disposition: Home self-care Condition: Fair Face to Face Encounter completed per [facility] Guidelines: No Discharge Activity: Activity as tolerated, Non-Weight bearing - On the right leg Discharge Diet: Consistent carbs Consultation Done:: Dr. ch Additional Patient Instructions (free text): Orthopedic Instructions: -Nonweightbearing right lower extremity. -Patient to follow-up in 1 week in orthopedic clinic for repeat x-rays in cast, with Appointment to see Dr. Ch on 04-22-19 at 1:45pm. See Dr. Fish in 6 weeks on 05-14-19 at 11:00am. Prescriptions (Any new or edited meds): Gabapentin [Neurontin] 100 mg PO TID #42 cap HYDROcodone/ACETAMINOPHEN [[place] 5-325] 1 ea PO QID PRN #60 tab PRN Reason: pain Complete Home Medications List: Complete Home Medication List: blood sugar diagnostic See Dose Instructions .ROUTE .MEDSUPPLY #100 ea 03/14/18 atorvastatin 40 mg tablet 40 mg PO DAILY #90 tab 12/01/18 DULoxetine HCL [Cymbalta] 30 mg PO DAILY 01/15/19 Levothyroxine Sodium [Synthroid] 50 mcg PO DAILY 01/15/19 calcium carb,cit ER 600 mg calcium-vit D3 500 unit tablet,ext.release 2 tab PO BID #120 tab 02/25/19 Amiodarone HCl 200 mg PO DAILY 04/13/19 Biotin 20,000 mcg PO DAILY 04/13/19 Carbidopa/Levodopa Cr 50/200 [Sinemet Cr 50/200] 1 tab PO QID 04/13/19 Ferrous Sulfate 325 mg PO BID 04/13/19 L.acidoph,Paracasei, B.lactis [Probiotic] 1 ea PO DAILY 04/13/19 Losartan Potassium 25 mg PO DAILY 04/13/19 Oxygen 0 .ROUTE .MEDSUPPLY ea 04/13/19 Potassium Chloride [Klor-Con 10] 20 meq PO TID 04/13/19 Propranolol HCl 60 mg PO BID 04/13/19 Topiramate [Topamax] 25 mg PO BID 04/13/19 Umeclidinium [place] [Incruse Ellipta] 62.5 mcg INHALATION DAILY 04/13/19 furosemide 80 mg tablet 80 mg PO BID #60 tab 04/13/19 Amiodarone HCl [Cordarone] 200 mg PO DAILY tab 04/15/19 Carbidopa/Levodopa Cr 50/200 [Sinemet Cr 50/200] 1 tab PO QID tablet.sa 04/15/19 Formoterol Fumarate [Perforomist] 20 mcg INHALATION BIDRT vial 04/15/19 Furosemide [Lasix] 80 mg PO BID tab 04/15/19 Gabapentin [Neurontin] 100 mg PO TID #42 cap 04/15/19 HYDROcodone/ACETAMINOPHEN [[place] 5-325] 1 ea PO QID PRN #60 tab 04/15/19 Insulin Glargine,Hum.rec.anlog [Lantus] 36 units SC HS vial 04/15/19 Insulin Lispro [Humalog] 12 units SC ACINS vial 04/15/19 Losartan Potassium [Cozaar] 25 mg PO DAILY tab 04/15/19 Propranolol HCl [Inderal] 60 mg PO BID tab 04/15/19
[2019-04-15] MEDS: ENOXAPARIN SODIUM 30 MG/0.3 ML SYRG SC SCH (15:28)
--- NOTE | 2019-04-15 19:39 | PN ---
Subjective - Date and Time Seen Date: 04/15/19 Time: 12:45 Subjective Narrative: Physical therapy came to see Laney this morning but she refused to get up until after other x-rays have been done place she is hurting since her fall. Complaining of pain in her left knee and both hips. Both x-rays are negative for fracture or dislocation. She is poorly mobile. She cannot roll over in bed without assistance. She has had trouble getting up out of a chair to stand and walk with 2 feet and now with the right ankle being broken and casted she will have to learn to do that with a walker and one leg. I am not optimistic about her ability to do that. Physical therapy came back to see her in the afternoon and share my concerns that she will not be able to be getting up to a chair, a bedside toilet, even a lift chair recliner. She will need a lift to be able to help get her up. Therefore she will be staying an extra night tonight while getting the lift for her home tomorrow. She will not qualify for snf because she is been an observation status. This morning's lab work is uneventful. Blood sugars have been climbing since she started eating again. Her tremor seems worse and I do believe it is a Parkinson's tremor. She will need a consultation with a neurologist as soon as she is mobile enough to go see 1. Objective - Review of Systems Generalized/Overall Review: Reports: Weakness, Malaise EENTM: Reports: No Symptoms Reported Respiratory: Reports: Cough, Shortness of Breath Cardiac: Reports: No Symptoms Reported Abdominal: Reports: No Symptoms Reported. Denies: Nausea, Vomiting, Abdominal Pain Genitourinary Symptoms: Reports: No Symptoms Reported Musculoskeletal Complaints: Reports: Joint Pain - Right ankle, left knee, both hips, Back Pain Neurological: Reports: No Symptoms Reported, Tremors, Weakness Skin: Reports: No Symptoms Reported Endocrine: Reports: No Symptoms Reported - Vitals Vitals: Last Vital Signs Temp 36.3 C 04/15/19 18:47 Pulse 67 04/15/19 18:47 Resp 24 H 04/15/19 18:47 BP 123/48 04/15/19 18:47 Pulse Ox 94 04/15/19 18:47 - Exam Constitutional: Present: Alert, Oriented x3, Cooperative, Well developed, Well nourished, Mild distress, Morbidly obese ENT Exam: Present: normal ENT inspection, hearing grossly normal, pharynx normal, TMs normal Neck: Present: non-tender, full range of motion, supple, normal inspection Breasts: Present: Exam deferred Respiratory: Present: chest non-tender, lungs clear, normal breath sounds Cardiovascular/Chest: Present: normal peripheral pulses, regular rate, rhythm, no chest tenderness, no edema, no gallop, no JVD, no murmur Abdomen: Present: Normal bowel sounds, soft, nontender, nondistended, no rebound tenderness, no hepatospenomegaly, no masses, obese /Rectal: Present: Exam deferred Extremity: Present: normal range of motion, non-tender, normal inspection, no pedal edema, pedal edema Skin Exam: Present: normal color, warm/dry, no cyanosis, cool/dry Lymphatic: Present: no adenopathy, axilla node tender (R) Neurologic: Present: manager deli II-XII nml as tested, normal cerebellar test, no motor/sensory deficits, alert, normal mood/affect Appearance: Present: appropriate appearance, appropriate insight, neat, no memory impairment Eye contact: Present: cooperative, good eye contact, normal speech Thoughts: Present: normal thought pattern, no apparent hallucination Assessment/Plan Plan Narrative: 1. She will stay again tonight. Physical therapy will work with her in the morning. 2. Get a lift for home purposes 3. Recheck morning lab CBC and CMP 4. Start her back on her insulins. - Problems/Diagnosis (1) Closed right ankle fracture Problem: Acute Qualifiers: Encounter type: initial encounter Qualified Code(s): S82.891A - Other fracture of right lower leg, initial encounter for closed fracture (2) CKD (chronic kidney disease) stage 3, GFR 30-59 ml/min Problem: Chronic (3) Diabetes mellitus type 2 in obese Problem: Chronic (4) Dependence on supplemental oxygen Problem: Chronic (5) Parkinson disease Problem: Chronic (6) Diabetes Problem: Chronic Qualifiers: Diabetes mellitus type: type 2 Diabetes mellitus senior living insulin use: with senior living use Diabetes mellitus complication status: with neurologic complications Diabetes mellitus complication detail: with polyneuropathy Qualified Code(s): E11.42 - Type 2 diabetes mellitus with diabetic polyneuropathy; Z79.4 - termite renewal inspector (current) use of insulin (7) COPD (chronic obstructive pulmonary disease) Problem: Chronic Qualifiers: COPD type: chronic bronchitis Chronic bronchitis type: mixed simple and mucopurulent Qualified Code(s): J41.8 - Mixed simple and mucopurulent chronic bronchitis
[2019-04-15] MEDS: ROSUVASTATIN CALCIUM 20 MG TABLET PO SCH (21:59)
[2019-04-15] MEDS: INSULIN GLARGINE,HUM.REC.ANLOG 100 UNITS/ML VIAL SC SCH (22:01)
[2019-04-16 06:25] LABS: Hematocrit 35.2 % (37.0-47.0); Hemoglobin 10.7 gm/dL (12.5-16.0); Mean Cell Volume 106.3 fl (78-100); Mean Corpuscular Hemoglobin 32.3 pg (27-31); Mean Corpuscular Hgb Conc 30.4 g/dl (32-36); Mean Platelet Volume 11.6 fl (8-12.5); Neutrophil # 6.5 K/mm3 (1.3-6.0); Neutrophil % 74.8 % (42-75.0); Platelet Count 152 K/mm3 (150-450); Red Blood Count 3.31 M/mm3 (4.2-5.4); Red Cell Distribution Width 13.1 % (11.5-14.0); White Blood Count 8.7 K/mm3 (4.0-10.5)
[2019-04-16 06:38] LABS: Albumin * 2.6 gm/dl (3.4-5.0); Anion Gap 4.2 mmol/L (6.8-13.8); Bilirubin, Total 0.4 mg/dL (0.0-1.1); Ca. Corrected For Albumin 9.3 mg/dL (8.4-10.2); Calcium * 8.5 mg/dL (7.9-10.9); Carbon Dioxide 36.8 mmol/L (24-32.6); Total Protein 6.4 gm/dL (6.2-8.2)
[2019-04-16 06:43] LABS: BUN/Creatinine Ratio 18.5 (9.0-21.6)
[2019-04-16] MEDS: LEVOTHYROXINE SODIUM 50 MCG TABLET PO SCH (07:29)
[2019-04-16] MEDS: INSULIN LISPRO 100 UNITS/ML VIAL SC SCH ×2 (07:38→12:09)
[2019-04-16] MEDS: LOSARTAN POTASSIUM 50 MG TABLET PO SCH (08:23)
[2019-04-16] MEDS: CARBIDOPA/LEVODOPA CR 50/200 1 TAB TABLET.SA PO SCH ×2 (08:23→12:55)
[2019-04-16] MEDS: TOPIRAMATE 50 MG TABLET PO SCH (08:23)
[2019-04-16] MEDS: DULoxetine HCL 30 MG CAPSULE.SA PO SCH (08:26)
[2019-04-16] MEDS: AMIODARONE HCL 200 MG TABLET PO SCH (08:26)
[2019-04-16] MEDS: FERROUS SULFATE 325 MG TABLET PO SCH (08:26)
[2019-04-16] MEDS: PROPRANOLOL HCL 20 MG TABLET PO SCH (08:26)
[2019-04-16] MEDS: POTASSIUM CHLORIDE 20 MEQ TABLET.SA PO SCH ×2 (08:27→12:54)
[2019-04-16] MEDS: FUROSEMIDE 80 MG TABLET PO SCH (08:27)
[2019-04-16] MEDS: GABAPENTIN 100 MG CAPSULE PO SCH ×2 (08:28→12:54)
[2019-04-16] MEDS: FORMOTEROL FUMARATE 20 MCG/2 ML VIAL IH SCH (08:34)
[2019-04-16] MEDS: ENOXAPARIN SODIUM 30 MG/0.3 ML SYRG SC SCH (12:57)
[2019-04-16] MEDS: HYDROcodone/ACETAMINOPHEN 1 EACH TABLET PO PRN (13:12)
[2019-04-16 14:34] VITALS: BP 137/44
== END 2019-04-16 15:15 | disposition home or self-care (01) ==
LOC: CCFAL → INTOOBSV 12:27 → MS 12:27
PROVIDERS: ADMIT Family Medicine; ATTEND Family Medicine
DX: Z79.4 Long term (current) use of insulin; E11.42 Type 2 diabetes mellitus with diabetic polyneuropathy; S82.891A Other fracture of right lower leg, initial encounter for closed fracture; N18.3 Chronic kidney disease, stage 3 (moderate); D53.9 Nutritional anemia, unspecified; J41.8 Mixed simple and mucopurulent chronic bronchitis; G20 Parkinson's disease
CPT/HCPCS: 36415; 73522; 73562; 73610; 80053; 85025; 87081; 94640; 94664; 96372; 96374; 96375; 97162; G0378